=== PATIENT | female | born 1930 | race Caucasian/White ===

== ENCOUNTER 2017-05-04 09:00 | Inpatient (IN) | payer MEDICARE, BC ==
--- NOTE | 2017-04-21 21:07 | HP ---
HISTORY AND PHYSICAL: DATE OF SURGERY/ADMISSION: 05/04/17 DATE OF OFFICE VISIT: 04/21/17 SURGEON: Saadia Cee MD * (DICTATED BY LING VARMA) PROCEDURE: Right total knee arthroplasty. CHIEF COMPLAINT: Right knee pain. HISTORY OF PRESENT ILLNESS: Ms. Plascencia is an 86-year-old female with continued complaints of right knee pain. She has failed conservative management and has elected to proceed with a right total knee arthroplasty, which is scheduled for 05/04/[address] Cee. PAST MEDICAL HISTORY: Essential tremor, hyperlipidemia, hypertension, mitral valve disorder. PAST SURGICAL HISTORY: Bunionectomy, hammertoe repair x3, carpal tunnel release on the right, cataract removal, right femoral hernia repair, right shoulder arthroscopy, right shoulder replacement. CURRENT MEDICATIONS: 1. Atorvastatin calcium 20 mg daily. 2. Tylenol as needed. 3. Zolpidem 5 mg as needed. 4. Fluoxetine 40 mg daily. 5. Lisinopril 10 mg daily. 6. Primidone 50 mg at bedtime. ALLERGIES: SULFA drugs. FAMILY HISTORY: Colon cancer and coronary artery disease. SOCIAL HISTORY: She is an 86-year-old female. She lives with her . She does not smoke or use drugs. Uses occasional alcohol. REVIEW OF SYSTEMS: A complete 14-point review of systems was reviewed with the patient, it was all negative or noncontributory. PHYSICAL EXAMINATION GENERAL: She is well developed, well nourished, in no acute distress. VITAL SIGNS: She stands 5 feet 1 inch tall, weighs 115 pounds. Her blood pressure is 120/78, her heart rate is 68. HEENT: Normocephalic, atraumatic. NECK: Supple. No palpable lymph nodes. PULMONARY: The lungs are clear to auscultation bilaterally. CARDIO: Regular rate and rhythm. Strong S1, S2. ABDOMEN: Soft, nontender, and nondistended. MUSCULOSKELETAL: Right lower extremity, the skin is intact. There are no open wounds or abrasions. There is a mild joint effusion. Just some tenderness over the medial and lateral joint line. Range of motion is 10 to 120 degrees with patellofemoral crepitus and pain. No varus or valgus instability. There is a 15 degrees of valgus deformity on the right knee. She is distally neurovascularly intact. NEUROLOGICAL: She is alert and oriented x3. Cranial nerves II through XII are intact. ASSESSMENT AND PLAN: Ms. Plascencia is an 86-year-old female with severe end- stage osteoarthritis of the right knee. She has failed conservative management and elected to proceed with a right total knee arthroplasty, which is scheduled for 05/04/[address] Cee discussed the risks and benefits of the surgery at today's visit and all of her questions were answered. She will follow with Dr. Cee 2 weeks after the surgery. LING VARMA [id number]/[facility] #: [id number] MARCY
[~2017-05-04 09:00] MED LIST: Buffered Lidocaine 0.9% SYRIN* 5 ML/SYR SYRINGE INTRADERM ONE; Famotidine IV* 10 MG/ML 2 ML (20 mg) IV ONE
[2017-05-04] MEDS ORDERED: Buffered Lidocaine 0.9% SYRIN* 5 ML/SYR SYRINGE ONE (12:51)
[2017-05-04] MEDS ORDERED: ceFAZolin 2 GM in 100 MLS NS (*) BAG IVPB ONE (12:51)
[2017-05-04] MEDS ORDERED: Famotidine IV* 10 MG/ML 2 ML (20 mg) ONE (12:52)
[2017-05-04] MEDS ORDERED: fentaNYL* 50 MCG/ML 2 ML VIAL (100 MCG VIAL) ONE (13:06)
[2017-05-04] MEDS ORDERED: Midazolam* 1 MG/ML 5 ML VIAL (5 MG) ONE (13:07)
[2017-05-04] MEDS ORDERED: Propofol* 10 MG/ML 20 ML BTL IV PUSH ONE (13:07)
[2017-05-04] MEDS ORDERED: Gabapentin CAP(*) 300 MG PO ONE (13:10)
[2017-05-04] MEDS ORDERED: Dexamethasone IV* 4 MG/ML 1 ML (4 MG) ONE (13:12)
[2017-05-04] MEDS ORDERED: Ketorolac INJ* 30 MG/ML 1 ML VIAL ONE (13:12)
[2017-05-04] MEDS ORDERED: Lidocaine 2% PF * 5 ML VIAL ONE (13:12)
[2017-05-04] MEDS ORDERED: Ondansetron INJ* 2 MG/ML VIAL ONE (13:12)
[2017-05-04] MEDS ORDERED: Bupivacaine-MPF SPINAL* 7.5 MG/2 ML AMP ONE (13:22)
[2017-05-04] MEDS ORDERED: Ropivacaine (OR use only) 2 MG/ML 1 ML ONE (14:47)
[2017-05-04] MEDS ORDERED: Cyclobenzaprine TAB* 10 MG PO PRN (15:08)
[2017-05-04] MEDS ORDERED: Ondansetron INJ* 2 MG/ML VIAL IV PRN (15:08)
[2017-05-04] MEDS ORDERED: Acetaminophen TAB* 325 MG PO PRN ×2 (15:08→15:28)
[2017-05-04] MEDS ORDERED: oxyCODONE/Acetamin 5/325 MG* TAB PO PRN (15:08)
[2017-05-04] MEDS ORDERED: Polyethylene Glycol 3350* 17 GM PACKET PO PRN (15:08)
[2017-05-04] MEDS ORDERED: Magnesium Hydroxide LIQ* 30 ML UDC PO PRN (15:08)
[2017-05-04] MEDS ORDERED: Ondansetron TAB* 4 MG PO PRN (15:08)
[2017-05-04] MEDS ORDERED: Morphine INJ* 2 MG/ML 1 ML CARPUJECT IV PRN (15:08)
[2017-05-04] MEDS ORDERED: Bisacodyl SUPP* 10 MG SUPP PR PRN (15:08)
[2017-05-04] MEDS ORDERED: diPHENhydraMINE IV* 50 MG/ML 1 ml VIAL (BENADRYL) IV PRN (15:08)
[2017-05-04] MEDS ORDERED: Zolpidem TAB* 5 MG PO PRN (15:12)
[2017-05-04] MEDS ORDERED: Naloxone* 0.4 MG/ML 1 ML VIAL IV PRN (15:28)
[2017-05-04] MEDS ORDERED: DiMENhydriNATE IV* 50 MG/ML VIAL IV PUSH PRN (15:28)
[2017-05-04] MEDS ORDERED: HYDROmorphone INJ* 1 MG/ML CARPUJECT SYRINGE IV PRN (15:28)
[2017-05-04] MEDS ORDERED: Gabapentin CAP(*) 100 MG PO ONE (15:32)
[2017-05-04] MEDS ORDERED: EPHEDrine (Pressors)* 50 MG/ML VIAL IV PUSH PRN (15:36)
[2017-05-04] MEDS ORDERED: Ropivacaine* 300 MG in NS 0.9% 250 ML* 240 ML EPIDURAL SCH (16:00)
--- NOTE | 2017-05-04 18:27 | RAD ---
INDICATION: Status post total right knee replacement surgery. COMPARISON: Comparison is made with a prior study from March 01, 2017. TECHNIQUE: 2 views of the right knee were obtained. FINDINGS: The patient is status post total right knee replacement surgery. The bones and prostheses are in normal alignment. There is a surgical drain present anterior to the distal femur. IMPRESSION: STATUS POST TOTAL RIGHT KNEE REPLACEMENT SURGERY.
[2017-05-04] MEDS ORDERED: Gabapentin CAP(*) 100 MG ONE (18:56)
[2017-05-04] MEDS ORDERED: Warfarin TAB(*) 6 MG PO ONE (22:00)
[2017-05-04] MEDS: Docusate CAP* 100 MG PO SCH (22:02)
[2017-05-04] MEDS: Primidone TAB(*) 50 MG PO SCH (22:03)
[2017-05-04] MEDS: Atorvastatin* 20 MG TAB PO SCH (22:03)
[2017-05-04] MEDS: Magnesium Hydroxide LIQ* 30 ML UDC PO SCH (22:03)
[2017-05-04] MEDS: Ibuprofen TAB* 400 MG PO SCH (22:03)
[2017-05-04] MEDS: ceFAZolin 1 GM in Dextrose (*) 1 GM/50 ML BAG IVPB SCH (22:04)
--- NOTE | 2017-05-04 23:36 | CONS ---
CC: Dr. Desai; Dr. Cee* CONSULTATION REPORT: DATE OF CONSULTATION: 05/04/17 PRIMARY CARE PROVIDER: Dr. Desai. ATTENDING PHYSICIAN WHILE IN THE HOSPITAL: Malcolm Geiger MD (report being dictated by Alcon Mann NP) REQUESTING PHYSICIAN IN CONSULT: Dr. Cee. REASON FOR MEDICAL CONSULTATION: Evaluation and medical management of comorbid medical conditions. HISTORY OF PRESENT ILLNESS: Ms. Plascencia is an 86-year-old female patient. She carries a history of hypertension, hyperlipidemia, essential tremors, depression , IBS, mitral valve regurgitation, arthritis, and PMR. She comes into the orthopedic services today for an elective total knee. She was evaluated in the PACU. The patient says that she is feeling well with the exception she has no feeling to her leg, which is concerning to her. She denies having any chest pain, shortness of breath. No abdominal pain. She denies having any nausea or vomiting. She does have an epidural catheter. In addition to this, she did receive a spinal. She denied having any lightheadedness and says that she does not feel like she is going to pass out. She says she does not feel dizzy. Because of her medical complexity, we were asked to evaluate in consult. PAST MEDICAL HISTORY: Significant for: 1. Hypertension. 2. Hyperlipidemia. 3. Essential tremors. 4. Depression. 5. IBS. 6. Mitral valve regurgitation. 7. Arthritis. 8. PMR. PAST SURGICAL HISTORY: 1. She just today had a right total knee replacement. 2. Bunionectomy. 3. Hammertoe repair x3. 4. Carpal tunnel. 5. Cataract extraction. 6. Hernia repair. 7. Right shoulder arthroscopy. 8. Right total shoulder replacement. HOME MEDICATIONS: Include: 1. Ambien 5 mg at bedtime as needed. 2. 2 mg in the morning and 3 mg at bedtime. 3. Lisinopril 100 mg p.o. daily. 4. Prozac 40 mg p.o. daily. 5. Lipitor 20 mg daily. 6. Aleve 1 tablet p.o. b.i.d. as needed. 7. Tylenol 500 mg every 8 hours as needed. ALLERGIES TO MEDICATIONS: Include SULFA DRUGS. FAMILY HISTORY: Her mother had a history of cancer. Father's history is essentially reviewed, noncontributory. SOCIAL HISTORY: The patient does not smoke. She does occasionally drinks wine with dinner. Surrogate decision maker is her daughter, Elena. REVIEW OF SYSTEMS: There is no documented fever. She denies having any significant weight change. There is no double vision. She denies having any ear discharge. There is no rhinorrhea. She denies having any sore throat. She denies having any chest pain. There is no orthopnea. There is no nocturnal dyspnea. She denies having any abdominal pain. There is no nausea. There is no vomiting. There is no dysuria, no frequency. No seizure. No loss of conscience. No pruritus and no skin ulcerations. Review of 14 systems was completed, all others negative. PHYSICAL EXAM: Blood pressure of 168/93, this is preoperative blood pressure, postop was 108/70, pulse was 70, respirations 18; O2 sat 97%, temperature 98.1, she was on 2 L. General: At this time, Mrs. Plascencia is an 86-year-old female patient. She appears to be well-nourished, well-developed. She is sitting in the PACU bed. She does not appear to be in any acute distress. HEENT: Head: Atraumatic, normocephalic. Eyes: Sclerae are anicteric, not pale. Pupils reactive to light. Neck: Supple. Throat: Oral mucosa appears to be dry. No oropharyngeal erythema. Heart: Sounds S1, S2. Regular rate and rhythm. No murmurs, rubs, or gallops. Lungs: Clear to auscultation bilaterally. No wheezes, rales, or rhonchi. Abdomen: Soft, flat, nontender. Bowel sounds were present, but hypoactive. Extremities: Pulses were 2+ throughout. She had good cap refill. She has no movement to the lower extremities at this point due to spinal anesthesia, but CSM checks are intact with the exception of motion. Neurologically, she is awake, alert, oriented x3. Speech is clear. Tongue midline. Nutrition Services Worker were equal. She had no gross focal deficits. Skin: Intact with exception to the right knee, she has an incision, which is covered with an Raphael dressing and a Hemovac, which is clean, dry, and intact. DIAGNOSTIC STUDIES/LAB DATA: Labs, which were obtained in the outpatient setting preoperatively showed a UA, which was unremarkable. Sodium is 145, potassium of 3.8, chloride of 103, bicarb 27, BUN 18, glucose was 88, creatinine of 0.6. TSH was normal. WBC of 5.4, RBC of 3.87, hemoglobin of 12.5 , hematocrit of 37, platelet count of 211. She did have an outpatient EKG as well showing a normal sinus rhythm, rate of 70. No ST elevations or T wave inversion. In addition to this, also had an outpatient chest x-ray, impression : No active disease. Old medical records reviewed. ASSESSMENT AND PLAN: Mrs. Plascencia is an 86-year-old female patient coming to orthopedic services today for an elective total knee replacement. We were asked to evaluate in consult. Our recommendations at this point are: 1. Status post right total knee replacement. I will defer the management to Dr. Cee and her team. 2. Hypertension. She does have an epidural in place. I am going to be holding her medications. Her blood pressure are lying on the low sides now 108 through 110 range systolics, so I will hold her lisinopril. Restart when able. 3. Hyperlipidemia. Continue statin therapy. 4. History of tremors. Continue her primidone. 5. Depression. Continue supportive care. 6. Irritable bowel syndrome. Again, continue with supportive care and bowel regimen. 7. History of mitral valve regurgitation. Follow with her PCP and industrial security analyst. 8. History of arthritis. Follow up with primary and continue current medical regimen. 9. DVT prophylaxis. Defer to the primary team. 10. Code status. Full code. 11. Fluids, electrolytes, and nutrition. She can have a regular diet. TIME SPENT: Time spent on consult was 60 minutes, greater than half that time was spent [id number] with the patient obtaining my history and physical, the other half time was spent going over the plan of care with the patient and implementing the plan of care. I did discuss the plan of care with my attending, Dr. Geiger; he is in agreement. ALCON MANN, ISIS [id number]/[facility] #: [id number] [facility] H[facility]PITALIván
[2017-05-05] MEDS: Ibuprofen TAB* 400 MG PO SCH (04:35)
[2017-05-05] MEDS: oxyCODONE/Acetamin 5/325 MG* TAB PO PRN (05:29)
[2017-05-05 05:38] LABS: EGFR Non-African American 112.1 (>60)
[2017-05-05 06:08] LABS: Hematocrit 29 % (35-47); Hemoglobin 9.6 g/dl (12.0-16.0); Mean Platelet Volume 9 um3 (7.4-10.4); Platelet Count 48 10^3/ul (150-450)
[2017-05-05] MEDS: ceFAZolin 1 GM in Dextrose (*) 1 GM/50 ML BAG IVPB SCH ×2 (06:13→14:29)
[2017-05-05] MEDS: Primidone TAB(*) 50 MG PO SCH ×2 (07:56→18:04)
[2017-05-05] MEDS: FLUoxetine CAP* 20 MG PO SCH (07:57)
[2017-05-05] MEDS: Docusate CAP* 100 MG PO SCH ×2 (07:57→20:11)
[2017-05-05] MEDS: Magnesium Hydroxide LIQ* 30 ML UDC PO SCH ×2 (07:58→20:11)
[2017-05-05] MEDS ORDERED: Lisinopril TAB* 10 MG PO SCH (09:00)
[2017-05-05] MEDS: oxyCODONE TAB* 5 MG TAB PO PRN ×3 (10:19→20:09)
[2017-05-05] MEDS ORDERED: Enoxaparin(*) 30 MG/0.3 ML SYR SUBCUT SCH (12:00)
--- NOTE | 2017-05-05 15:30 | PN ---
Progress Note - Progress Note Date of Service: 05/05/17 SOAP: Subjective: []Patient seen at bedside. She is feeling well despite mild dizziness. Denies CP , SOB, nausea or vomiting. Objective: [] Vital Signs Temp 98.5 F 05/05/17 11:30 Pulse 72 05/05/17 15:22 Resp 18 05/05/17 15:22 BP 104/50 05/05/17 15:22 Pulse Ox 100 05/05/17 15:22 Intake & Output 05/04/17 05/05/17 05/05/17 18:59 06:59 18:59 Intake Total 1750 1812 400 Output Total 600 475 200 Balance 1150 1337 200 Weight 112 lb 6.4 oz Intake: IV Fluids 1750 1032 ABX - CEFAZOLIN 52 LR 1650 980 NS 100ML, Cefazolin 2G 100 Oral 780 400 Output: Urine 200 Archibald 600 475 Other: # Bowel Movements 0 Laboratory Last Values Hgb 9.6 g/dl (12.0-16.0) L 05/05/17 04:46 Hct 29 % (35-47) L 05/05/17 04:46 Plt Count 48 10^3/ul (150-450) L 05/05/17 04:46 MPV 9 um3 (7.4-10.4) 05/05/17 04:46 INR (Anticoag Therapy) 1.00 (0.77-1.02) 05/05/17 04:46 Sodium 133 mmol/L (133-145) 05/05/17 04:46 Potassium 4.4 mmol/L (3.5-5.0) 05/05/17 07:19 Chloride 102 mmol/L (101-111) 05/05/17 04:46 Carbon Dioxide 25 mmol/L (22-32) 05/05/17 04:46 Anion Gap 6 mmol/L (2-11) 05/05/17 04:46 BUN 15 mg/dL (6-24) 05/05/17 04:46 Creatinine 0.52 mg/dL (0.51-0.95) 05/05/17 04:46 Est GFR ( Amer) 144.1 (>60) 05/05/17 04:46 Est GFR (Non-Af Amer) 112.1 (>60) 05/05/17 04:46 BUN/Creatinine Ratio 28.8 (8-20) H 05/05/17 04:46 Glucose 100 mg/dL (70-100) 05/05/17 04:46 Calcium 8.5 mg/dL (8.6-10.3) L 05/05/17 04:46 General: Well appearing, NAD RLE: Drain pulled with tip intact without complication. Dressing CDI. DF/PF intact. 2+ DP/PT pulse. BL LE: calves supple and nontender without erythema, edema or palpable cords. Assessment: []POD 1 SP right total knee arthroplasty 05/04/17 Dr Cee Plan: []WBAT PT/OT PLT count of 48 discussed with patient, daughter and hospitalist service. Will repeat count now and hold anticoagulation as plt count dictates
[2017-05-05 16:14] LABS: ABS Basophils 0 10^3/ul (0-0.2); ABS Eosinophils 0.1 10^3/ul (0-0.6); ABS Lymphocytes 1.1 10^3/ul (1.0-4.8); ABS Monocytes 0.6 10^3/ul (0-0.8); ABS Nucleated RBC 0 10^3/ul; Eosinophil % 0.6 % (0-6); Hematocrit 27 % (35-47); Hemoglobin 9.2 g/dl (12.0-16.0); Lymphocyte % 9.9 % (25-47); Mean Corpuscular HGB Conc 34 g/dl (31-36); Mean Corpuscular Hemoglobin 33 pg (27-31); Mean Corpuscular Volume 95 fL (80-97); Mean Platelet Volume 9 um3 (7.4-10.4); Nucleated Red Blood Cells % 0; Platelet Count 142 10^3/ul (150-450); Red Cell Distribution Width 12 % (10.5-15); White Blood Count 10.8 10^3/ul (3.5-10.8)
--- NOTE | 2017-05-05 16:52 | PN ---
Subjective Date of Service: 05/05/17 Interval History: C/o right knee pain, denies chest pain or shortness of breath, Denies abd pain. v/d, c/o nausea on and off throughout the day. Family History: Unchanged from Admission Social History: Unchanged from Admission Past Medical History: Unchanged from Admission Objective Active Medications: Acetaminophen (Tylenol Tab*) 650 mg PO Q4H PRN PRN Reason: PAIN OR TEMPERATURE Atorvastatin Calcium (Lipitor*) 20 mg PO QPM [facility] Last Admin: 05/04/17 22:03 Dose: 20 mg Bisacodyl (Dulcolax Supp*) 10 mg [place] DAILY PRN PRN Reason: constipation Cyclobenzaprine HCl (Flexeril Tab*) 10 mg PO TID PRN PRN Reason: SPASMS Last Admin: 05/05/17 07:57 Dose: 10 mg Diphenhydramine HCl (Benadryl Iv*) 12.5 mg IV Q6H PRN PRN Reason: PRURITIS Docusate Sodium (Colace Cap*) 100 mg PO BID [facility] Last Admin: 05/05/17 07:57 Dose: 100 mg Enoxaparin Sodium (Lovenox(*)) 30 mg SUBCUT Q24H [facility] Last Admin: 05/05/17 12:39 Dose: 30 mg Fluoxetine HCl (Prozac Cap*) 40 mg PO QAM [facility] Last Admin: 05/05/17 07:57 Dose: 40 mg Lactated Ringer's (Lactated Ringers 1000 Ml Bag*) 1,000 mls @ 100 mls/hr IV PER RATE [facility] Last Admin: 05/05/17 05:40 Dose: 100 mls/hr Lactulose (Lactulose*) 30 ml PO Q6H PRN PRN Reason: constipation Magnesium Hydroxide (Milk Of Magnesia Liq*) 30 ml PO BID [facility] Last Admin: 05/05/17 07:58 Dose: Not Given Magnesium Hydroxide (Milk Of Magnesia Liq*) 30 ml PO Q6H PRN PRN Reason: constipation Morphine Sulfate (Morphine Inj (Syringe)*) 2 mg IV Q2H PRN PRN Reason: PAIN Ondansetron HCl (Zofran Inj*) 4 mg IV Q6H PRN PRN Reason: nausea Last Admin: 05/05/17 10:16 Dose: 4 mg Ondansetron HCl (Zofran Tab*) 4 mg PO Q6H PRN PRN Reason: NAUSEA Oxycodone HCl (Roxycodone Tab*) 10 mg PO Q4H PRN PRN Reason: SEVERE PAIN Last Admin: 05/05/17 14:28 Dose: 10 mg Oxycodone/Acetaminophen (Percocet 5/325 Tab*) 2 tab PO Q4H PRN PRN Reason: PAIN Oxycodone/Acetaminophen (Percocet 5/325 Tab*) 1 tab PO Q4H PRN PRN Reason: PAIN Last Admin: 05/05/17 05:29 Dose: 1 tab Pharmacy Profile Note (Coumadin Daily Reminder*) 1 note FOLLOW UP 1700 [facility] Polyethylene Glycol/Electrolytes (Miralax*) 17 gm PO DAILY PRN PRN Reason: Constipation Primidone (Mysoline Tab(*)) 100 mg PO QAM [facility] Last Admin: 05/05/17 07:56 Dose: 100 mg Primidone (Mysoline Tab(*)) 150 mg PO QPM [facility] Last Admin: 05/04/17 22:03 Dose: 150 mg Warfarin Sodium (Coumadin Tab(*)) 6 mg PO ONCE@1700 ONE PRN Reason: Protocol Stop: 05/05/17 17:01 Zolpidem Tartrate (Ambien Tab*) 5 mg PO BEDTIME PRN PRN Reason: INSOMNIA Vital Signs - 8 hr 05/05/17 05/05/17 05/05/17 10:19 10:22 11:30 Temperature 98.5 F Pulse Rate 70 Respiratory 16 16 16 Rate Blood Pressure 108/53 (mmHg) O2 Sat by Pulse 96 Oximetry 05/05/17 05/05/17 05/05/17 12:42 14:28 15:22 Temperature Pulse Rate 72 Respiratory 16 16 18 Rate Blood Pressure 104/50 (mmHg) O2 Sat by Pulse 100 Oximetry Oxygen Devices in Use Now: None Appearance: appears comfortable lying in the bed Eyes: No Scleral Icterus Ears/Nose/Mouth/Throat: Clear Oropharnyx, Mucous Membranes Moist Neck: NL Appearance and Movements; NL JVP, Trachea Midline Respiratory: Symmetrical Chest Expansion and Respiratory Effort, Clear to Auscultation Cardiovascular: NL Sounds; No Murmurs; No JVD, No Edema Abdominal: NL Sounds; No Tenderness; No Distention Extremities: No Clubbing, Cyanosis, - - mild edema to right lower leg, dressing intact to right knee Skin: No Rash or Ulcers Neurological: Alert and Oriented x 3 Nutrition: Taking PO's Result Diagrams: 05/05/17 15:52 05/05/17 07:19 Assess/Plan/Problems-Billing Assessment: Ms. Plascencia 86 y.o who had a elective right knee athroplasty. Hx of HTN, hyperlipidemia, essential tremors,depression, IBS , arthritis and mitral valve regurgitation - Patient Problems (1) HTN (hypertension) Current Visit: Yes Status: Acute Code(s): I10 - ESSENTIAL (PRIMARY) HYPERTENSION SNOMED Code(s): 92103429 Comment: will hold lisinopril for now SBP~ 104 (2) S/P total knee arthroplasty Current Visit: Yes Status: Acute Code(s): Z96.659 - PRESENCE OF UNSPECIFIED ARTIFICIAL KNEE JOINT SNOMED Code(s): 9227912631982 Comment: management per orthopedics Pt/OT per ortho pain management per ortho (3) Hyperlipidemia Current Visit: Yes Status: Acute Code(s): E78.5 - HYPERLIPIDEMIA, UNSPECIFIED SNOMED Code(s): 56944103 Comment: continue lipitor (4) Essential tremor Current Visit: Yes Status: Acute Code(s): G25.0 - ESSENTIAL TREMOR SNOMED Code(s): 758244156 Comment: stable ~ continue home medication primidone (5) Depression Current Visit: Yes Status: Acute Code(s): F32.9 - MAJOR DEPRESSIVE DISORDER , SINGLE EPISODE, UNSPECIFIED SNOMED Code(s): 68657987 Comment: suportive care (6) Arthritis Current Visit: Yes Status: Acute Code(s): M19.90 - UNSPECIFIED OSTEOARTHRITIS, UNSPECIFIED SITE SNOMED Code(s): 0161379 (7) Mitral valve regurgitation Current Visit: Yes Status: Acute (8) DVT prophylaxis Current Visit: Yes Status: Acute Code(s): STN0482 - SNOMED Code(s): 848845687 Comment: Coumadin as per orthopedics (9) Full code status Current Visit: Yes Status: Acute Code(s): Z78.9 - OTHER SPECIFIED HEALTH STATUS SNOMED Code(s): 749070795
[2017-05-05] MEDS ORDERED: Warfarin TAB(*) 6 MG PO SCH (17:00)
[2017-05-05] MEDS ORDERED: Warfarin TAB(*) 6 MG PO ONE (17:00)
[2017-05-05] MEDS: Atorvastatin* 20 MG TAB PO SCH (18:04)
[2017-05-06 05:46] LABS: Hematocrit 23 % (35-47); Mean Platelet Volume 9 um3 (7.4-10.4); Platelet Count 116 10^3/ul (150-450)
[2017-05-06 06:02] LABS: INR 1.88 (0.77-1.02)
[2017-05-06] MEDS: Magnesium Hydroxide LIQ* 30 ML UDC PO SCH (08:12)
[2017-05-06] MEDS: Docusate CAP* 100 MG PO SCH (08:23)
[2017-05-06] MEDS: oxyCODONE/Acetamin 5/325 MG* TAB PO PRN ×2 (08:23→12:43)
[2017-05-06] MEDS: Primidone TAB(*) 50 MG PO SCH (08:23)
[2017-05-06] MEDS: FLUoxetine CAP* 20 MG PO SCH (08:23)
--- NOTE | 2017-05-06 08:39 | OP ---
DATE OF OPERATION: 05/04/17 - ROOM #341 DATE OF : 32 SURGEON: Saadia Cee MD STRAW BOSS: LING Enciso. Mr. Contreras did help throughout the procedure with preparation of the leg, wound retraction, manipulation of the knee, and wound closure. ANESTHESIOLOGIST: Danii Mcgowan MD ANESTHESIA: Spinal. PRE-OP DIAGNOSIS: Severe end-stage degenerative osteoarthritis of the right knee joint, valgus deformity. POST-OP DIAGNOSIS: Severe end-stage degenerative osteoarthritis of the right knee joint, valgus deformity. OPERATIVE PROCEDURE: Right total knee arthroplasty. INDICATIONS: Ms. Plascencia is an 86-year-old female with years of increasingly severe right knee pain and valgus deformity. She failed conservative treatment with intraarticular injections, physical therapy, and ambulatory assistive devices, as well as anti-inflammatories. Radiographs showed severe bone-on- bone arthritis. She developed greater than 12-degree valgus deformity. Due to continued pain and decreased quality of life, she elected to undergo right total knee arthroplasty. Informed consent was obtained from the patient. She understood the risks of surgery included, but were not limited to, bleeding, infection, damage to nearby structures, continued pain, need for further surgery , intraoperative fracture, nerve palsy, hardware failure or loosening, knee stiffness, loss of motion, stroke, heart attack, blood clot, and . She wished to proceed. COMPLICATIONS: None. ESTIMATED BLOOD LOSS: 300 cc. TOURNIQUET TIME: 54 minutes. HARDWARE USED: This is cemented Calixto and Nephew total knee arthroplasty hardware. For the femur a size 4, right posterior stabilized Legion narrow femoral component. For the tibia, size 3 right tibial base plate Gisele II. For the patella, a 32-mm 7.5 thickness, 3-peg all poly patella, and for the insert a 9-mm posterior stabilized articular insert, size 3-4. Two packages of Simplex bone cement. INTRAOPERATIVE FINDINGS: Intraoperatively, the patient was noted to have preop range of motion of 5 to 120 degrees, valgus deformity of 12 degrees, and this was corrected to anatomic valgus during the surgery. She was noted to have tricompartmental full-thickness loss of cartilage as well as lateral femoral condylar hypoplasia. DESCRIPTION OF PROCEDURE: Ms. Plascencia was identified in the preanesthesia unit. Her right lower extremity was marked as the correct operative side. Informed consent was signed and placed in the chart. The patient was taken to the operating room and placed under spinal anesthesia. A Archibald catheter was placed. Tourniquet was placed on the right thigh. Right lower extremity was prepped and draped in the usual sterile fashion. Preop time-out was made to correctly identify the patient's side and site. Appropriate perioperative antibiotics were given within 1 hour of incision. Tourniquet was inflated and the total tourniquet time for this procedure was 54 minutes. A 12-cm midline incision was made with a 10 blade and carried down sharply to the extensor mechanism. A new 10 blade was used to make a standard medial parapatellar arthrotomy. The patella was subluxed laterally. Electrocautery was used to subperiosteally elevate soft tissue off the superomedial tibia to the mid sagittal plane. The knee was flexed up. The anterior horn of the lateral meniscus and ACL were sharply released. A drill was used to enter the distal femur. Intramedullary distal femoral cutting guide was pinned on the distal femur. Lateral femoral condylar hypoplasia was noted and accounted for. Distal femoral cut was made. Next, the external rotation guide was placed on the distal femur. The distal femur was sized to size 4. A size 4 multi-cutting jig was pinned on the distal femur. Oscillating saw was used to make the appropriate 4 chamfer cuts. The PCL was completely released. The tibia was subluxed anteriorly. Extramedullary tibial cutting guide was pinned on the proximal tibia. The oscillating saw was used to make the proximal tibial cut perpendicular to the mechanical axis of the tibia. The bone was carefully removed. The knee was brought out into full extension. The spacer block had excellent fit. The medial and lateral ligaments were well balanced. Flexion and extension gaps were well balanced. The knee was flexed up. Tibial tray and drop karyn were placed to confirm satisfactory tibial cut. Next, lamina vp strategic planning was placed both medially and laterally. Any remaining meniscus was carefully removed with electrocautery. Curved osteotome was used to remove any posterior osteophytes. A size 4 narrow right femoral trial was impacted on to the distal femur. The box for the posterior stabilized implant was prepared using a reamer and box cut osteotome. A trial 3 tibial tray with a 9-mm insert trial was placed and the knee was taken through a range of motion. The knee was brought out into full extension and had 130 degrees of flexion with good patellofemoral tracking. The patella was everted. 7 mm of patellar bone and cartilage was carefully removed using an oscillating saw. The patella was sized to size 32. A 32 trial patella was placed after the peg holes were drilled through the size 32 guide. A 7.5 thickness trial patella was chosen. The knee was taken through range of motion and the patellofemoral tracking was satisfactory. All trials were carefully removed. The tibia was subluxed anteriorly. Tibia was sized to a size 3. The proximal tibia was prepared using a size 3 keel punch. All bony cut surfaces were copiously irrigated with sterile saline and dried. Final implants were cemented into place starting with the tibia followed by the femur and lastly the patella. A 9-mm insert trial was placed while the knee was brought out into full extension. The tourniquet was turned down at 54 minutes. Electrocautery was used to obtain meticulous hemostasis. The knee was copiously irrigated with sterile saline. Once the cement had fully cured, the insert trial was removed. Any excess cement was removed from around the capsule and hardware. Final insert chosen was a 9-mm posterior stabilized articular insert, size 3/4. This was locked into position on the tibial tray. Stability of the insert was checked and rechecked and noted to be stable. The extensor mechanism was closed using interrupted #1 Vicryls over a medium Hemovac drain. The rest of the incisions were closed in layered fashion using 0 and 2-0 Vicryls. The skin was closed using running 3-0 nylon suture. Sterile Xeroform, 4x4s, and Webril were used to cover the incision. Raphael wrap and cold pack were placed over this. The patient's anesthesia was reversed without difficulty. She was taken to the PACU in stable condition. Intended weightbearing will be weightbearing as tolerated. Intended DVT prophylaxis will be Coumadin with a Lovenox bridge. [id number]/[facility] #: [id number] MARCY
--- NOTE | 2017-05-06 10:18 | PN ---
Progress Note - Progress Note Date of Service: 05/06/17 SOAP: Subjective: []Patient seen at bedside. She feels well with well controlled right knee pain. Denies dizziness, nausea, CP, SOB, leg numbness. Objective: [] Vital Signs Temp 98.5 F 05/06/17 08:08 Pulse 84 05/06/17 08:08 Resp 16 05/06/17 09:15 BP 128/61 05/06/17 08:08 Pulse Ox 95 05/06/17 08:30 Intake & Output 05/05/17 05/06/17 05/06/17 18:59 06:59 18:59 Intake Total 2025 1650 280 Output Total 200 1950 Balance 1826 -300 280 Intake: IV Fluids 1116 980 ABX - CEFAZOLIN 108 LR 1008 980 Oral 910 670 280 Output: Urine 200 1950 Other: Estimated Void Large Small # Voids 1 Laboratory Last Values WBC 10.8 10^3/ul (3.5-10.8) 05/05/17 15:52 RBC 2.80 10^6/ul (4.0-5.4) L 05/05/17 15:52 Hgb 8.0 g/dl (12.0-16.0) L 05/06/17 05:12 Hct 23 % (35-47) L 05/06/17 05:12 MCV 95 fL (80-97) 05/05/17 15:52 MCH 33 pg (27-31) H 05/05/17 15:52 MCHC 34 g/dl (31-36) 05/05/17 15:52 RDW 12 % (10.5-15) 05/05/17 15:52 Plt Count 116 10^3/ul (150-450) L 05/06/17 05:12 MPV 9 um3 (7.4-10.4) 05/06/17 05:12 Neut % (Auto) 83.2 % (38-83) H 05/05/17 15:52 Lymph % (Auto) 9.9 % (25-47) L 05/05/17 15:52 [place] % (Auto) 5.9 % (0-7) 05/05/17 15:52 Eos % (Auto) 0.6 % (0-6) 05/05/17 15:52 Baso % (Auto) 0.4 % (0-2) 05/05/17 15:52 Absolute Neuts (auto) 9.0 10^3/ul (1.5-7.7) H 05/05/17 15:52 Absolute Lymphs (auto) 1.1 10^3/ul (1.0-4.8) 05/05/17 15:52 Absolute Monos (auto) 0.6 10^3/ul (0-0.8) 05/05/17 15:52 Absolute Eos (auto) 0.1 10^3/ul (0-0.6) 05/05/17 15:52 Absolute Basos (auto) 0 10^3/ul (0-0.2) 05/05/17 15:52 Absolute Nucleated RBC 0 10^3/ul 05/05/17 15:52 Nucleated RBC % 0 05/05/17 15:52 INR (Anticoag Therapy) 1.88 (0.77-1.02) H 05/06/17 05:12 Sodium 133 mmol/L (133-145) 05/05/17 04:46 Potassium 4.4 mmol/L (3.5-5.0) 05/05/17 07:19 Chloride 102 mmol/L (101-111) 05/05/17 04:46 Carbon Dioxide 25 mmol/L (22-32) 05/05/17 04:46 Anion Gap 6 mmol/L (2-11) 05/05/17 04:46 BUN 15 mg/dL (6-24) 05/05/17 04:46 Creatinine 0.52 mg/dL (0.51-0.95) 05/05/17 04:46 Est GFR ( Amer) 144.1 (>60) 05/05/17 04:46 Est GFR (Non-Af Amer) 112.1 (>60) 05/05/17 04:46 BUN/Creatinine Ratio 28.8 (8-20) H 05/05/17 04:46 Glucose 100 mg/dL (70-100) 05/05/17 04:46 Calcium 8.5 mg/dL (8.6-10.3) L 05/05/17 04:46 General: Well appearing, NAD RLE:Dressing changed. Incision CDI. DF/PF intact. 2+ DP/PT pulse. Sensation intact distally. BL LE: calves supple and nontender without erythema, edema or palpable cords. Assessment: []POD 2 SP right total knee arthroplasty 05/04/17 Dr Cee Plan: []WBAT PT/OT Lovenox, coumadin 2 mg DC home today. Daughters ( both work in healthcare) will at be home to assist in care-taking
--- NOTE | 2017-05-06 15:41 | PN ---
Subjective Date of Service: 05/06/17 Interval History: Patient seen and examined at bedside. Denies fever, chills, lightheadedness or dizziness, shortness of breath, chest discomfort, N/V/D. Family History: Unchanged from Admission Social History: Unchanged from Admission Past Medical History: Unchanged from Admission Objective Active Medications: Acetaminophen (Tylenol Tab*) 650 mg PO Q4H PRN Reason: PAIN OR TEMPERATURE Atorvastatin Calcium (Lipitor*) 20 mg PO QPM DAVID Bisacodyl (Dulcolax Supp*) 10 mg ME DAILY PRN Reason: constipation Cyclobenzaprine HCl (Flexeril Tab*) 10 mg PO TID PRN Reason: SPASMS Diphenhydramine HCl (Benadryl Iv*) 12.5 mg IV Q6H PRN Reason: PRURITIS Docusate Sodium (Colace Cap*) 100 mg PO BID DAVID Fluoxetine HCl (Prozac Cap*) 40 mg PO QAM [facility] Lactated Ringer's (Lactated Ringers 1000 Ml Bag*) 1,000 mls @ 100 mls/hr IV PER RATE DAVID Lactulose (Lactulose*) 30 ml PO Q6H PRN Reason: constipation Magnesium Hydroxide (Milk Of Magnesia Liq*) 30 ml PO BID DAVID Magnesium Hydroxide (Milk Of Magnesia Liq*) 30 ml PO Q6H PRN Reason: constipation Morphine Sulfate (Morphine Inj (Syringe)*) 2 mg IV Q2H PRN Reason: PAIN Ondansetron HCl (Zofran Inj*) 4 mg IV Q6H PRN Reason: nausea Ondansetron HCl (Zofran Tab*) 4 mg PO Q6H PRN Reason: NAUSEA Oxycodone HCl (Roxycodone Tab*) 10 mg PO Q4H PRN Reason: SEVERE PAIN Oxycodone/Acetaminophen (Percocet 5/325 Tab*) 2 tab PO Q4H PRN Reason: PAIN Oxycodone/Acetaminophen (Percocet 5/325 Tab*) 1 tab PO Q4H PRN Reason: PAIN Pharmacy Profile Note (Coumadin Daily Reminder*) 1 note FOLLOW UP 1700 DAVID Polyethylene Glycol/Electrolytes (Miralax*) 17 gm PO DAILY PRN Reason: Constipation Primidone (Mysoline Tab(*)) 100 mg PO QAM DAVID Primidone (Mysoline Tab(*)) 150 mg PO QPM [facility] Warfarin Sodium (Coumadin Tab(*)) 2 mg PO ONCE@1700 ONE Stop: 05/06/17 17:01 Zolpidem Tartrate (Ambien Tab*) 5 mg PO BEDTIME PRN Reason: INSOMNIA Vital Signs - 8 hr 05/06/17 05/06/17 05/06/17 08:08 08:23 08:30 Temperature 98.5 F Pulse Rate 84 Respiratory 16 16 Rate Blood Pressure 128/61 (mmHg) O2 Sat by Pulse 95 95 Oximetry 05/06/17 05/06/17 05/06/17 09:15 12:43 12:44 Temperature Pulse Rate Respiratory 16 16 16 Rate Blood Pressure (mmHg) O2 Sat by Pulse Oximetry Oxygen Devices in Use Now: None Appearance: NAD, sitting up in a chair Ears/Nose/Mouth/Throat: Mucous Membranes Moist Respiratory: Symmetrical Chest Expansion and Respiratory Effort, Clear to Auscultation Cardiovascular: NL Sounds; No Murmurs; No JVD, RRR Abdominal: NL Sounds; No Tenderness; No Distention Neurological: Alert and Oriented x 3, NL Muscle Strength and Tone Lines/Tubes/Other Access: Clean, Dry and Intact Peripheral IV - site benign Nutrition: Taking PO's Result Diagrams: 05/06/17 05:12 05/05/17 07:19 Assess/Plan/Problems-Billing Assessment: Ms. Plascencia is an 86 y.o with PMH significant for HTN, hyperlipidemia, essential tremors,depression, IBS , arthritis and mitral valve regurgitation who had an elective right knee arthroplasty. - Patient Problems (1) S/P total knee arthroplasty Code(s): Z96.659 - PRESENCE OF UNSPECIFIED ARTIFICIAL KNEE JOINT SNOMED Code(s ): 8723692953576 Comment: - Right knee, POD # 2. Management per orthopedics - Continue PT/OT per ortho, pain management and bowel regimen per ortho (2) Anemia Code(s): D64.9 - ANEMIA, UNSPECIFIED SNOMED Code(s): 326523059 Comment: - Suspect acute blood loss anemia secondary to surgery - Asymptomatic (3) Depression Code(s): F32.9 - MAJOR DEPRESSIVE DISORDER, SINGLE EPISODE, UNSPECIFIED SNOMED Code(s): 95924521 Comment: - Continue suportive care (4) Essential tremor Code(s): G25.0 - ESSENTIAL TREMOR SNOMED Code(s): 467501594 Comment: - Continue primidone (5) HTN (hypertension) Code(s): I10 - ESSENTIAL (PRIMARY) HYPERTENSION SNOMED Code(s): 66176088 Comment: - SBP 110-140's - Resume lisinopril (6) Hyperlipidemia Code(s): E78.5 - HYPERLIPIDEMIA, UNSPECIFIED SNOMED Code(s): 95805379 Comment: - Continue lipitor (7) IBS (irritable bowel syndrome) (8) Mitral valve regurgitation (9) DVT prophylaxis Code(s): GBP0356 - SNOMED Code(s): 199499004 Comment: - Coumadin as per orthopedics (10) Full code status Code(s): Z78.9 - OTHER SPECIFIED HEALTH STATUS SNOMED Code(s): 589565290 Status and Disposition: Inpatient. Stable for discharge to home today.
[2017-05-06 16:20] VITALS: BP 149/75
[2017-05-06] MEDS ORDERED: Warfarin TAB(*) 2 MG PO ONE (17:00)
--- NOTE | 2017-05-07 22:48 | DS ---
DISCHARGE SUMMARY: DATE OF ADMISSION/OPERATION: 05/04/17 DATE OF DISCHARGE: ATTENDING PHYSICIAN: Dr. Saadia Cee. SURGEON: Dr. 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 HISTORY OF PRESENT ILLNESS: Ms. Plascencia is an 86-year-old female with years of increasingly severe right knee pain and valgus deformity. She failed conservative treatment and therefore elected to undergo a total right knee arthroplasty. HOSPITAL COURSE: Ms. Plascencia underwent a total right knee arthroplasty on the same day that she was admitted to [facility]. After the procedure, she was brought to the PACU for recovery briefly in stable condition and then to the short-stay surgical unit again in stable condition. During her stay, she was seen by the hospitalist service, physical therapy and occupational therapy. On postop day 1, the patient felt well with mild dizziness. Hemoglobin 9.6, hematocrit 29. INR 1.0. Platelet count originally reported is 48 deemed to be a lab error, asked to repeat, with a count of 142, also discussed with a lab. It reveals the clot was likely clotted in the first sample. Postop day 2, dizziness had subsided. Temperature 98.5, pulse 84, respiratory rate 16, blood pressure 128/61, pulse ox 95%, hemoglobin 8.0, hematocrit 23, platelet 116. INR 1.88. The patient's dressing was changed and the incision was clean, dry, and intact. Dorsiflexion and plantarflexion intact. 2+ dorsalis pedis and posterior tibial pulse. Sensation is intact distally. Calves are supple and nontender without erythema, edema or palpable cords. The patient is weightbearing as tolerated. She will be discharged to home today. DISCHARGE MEDICATIONS: Resume home medications aside from Aleve. New medications: 1. Docusate 100 mg p.o. b.i.d. 2. Oxycodone/acetaminophen 5/325 one to two tabs every 4 to 6 hours as needed, max daily dose of 10. 3. Warfarin 2 mg tab 1 to 2 tabs daily depending on INR dosing. DISCHARGE PLAN: The patient will be weightbearing as tolerated. Okay to shower on postop day 2. Do not submerge the wound. Call Orthopedic office for increased drainage, redness, increased pain or fever. Go to the emergency room with shortness of breath or chest pain. Continue with physical therapy and occupational therapy, exercises as shown. Visiting home nurse will draw blood for INRs on Mondays and at your first INR draw. Nurse will also draw a CBC order and then sent to the home nursing service. Coumadin dosing will be 2 mg daily until recheck on 05/10/17. Pain control with Percocet 5/325 one to two tabs by mouth every 4 to 6 hours as needed for pain, max of 10 tabs per day. Follow up with Dr. Cee within 10 to 14 days. LING DIEHL [id number]/CPS #: [id number] MTDD
== END 2017-05-06 16:05 | disposition home health service (06) | DRG 470 ==
LOC: AA 12:38 → SSU 19:20
PROVIDERS: ADMIT Orthopaedic Surgery Adult Reconstructive Orthopaedic Surgery; ATTEND Orthopaedic Surgery Adult Reconstructive Orthopaedic Surgery
PROC: 0SRC0J9 Replacement of Right Knee Joint with Synthetic Substitute, Cemented, Open Approach (ICD-10-PCS; principal; 2017-05-04 15:00)
DX: M17.11 Unilateral primary osteoarthritis, right knee (principal); I27.20 Pulmonary hypertension, unspecified; I08.3 Combined rheumatic disorders of mitral, aortic and tricuspid valves; D64.9 Anemia, unspecified; E78.5 Hyperlipidemia, unspecified; G25.0 Essential tremor; I10 Essential (primary) hypertension; Z96.611 Presence of right artificial shoulder joint; F32.9 Major depressive disorder, single episode, unspecified; K58.9 Irritable bowel syndrome, unspecified; M21.061 Valgus deformity, not elsewhere classified, right knee; M35.3 Polymyalgia rheumatica; M25.761 Osteophyte, right knee; R42 Dizziness and giddiness; Z98.42 Cataract extraction status, left eye; Z98.41 Cataract extraction status, right eye; Z72.89 Other problems related to lifestyle; Z82.49 Family history of ischemic heart disease and other diseases of the circulatory system; Z80.0 Family history of malignant neoplasm of digestive organs; Z88.2 Allergy status to sulfonamides; Z79.01 Long term (current) use of anticoagulants
CPT/HCPCS: 36415; 80048; 85014; 85018; 85025; 85049; 85610; 94760; A9270-GY; C1776; G8978-GP-CI; G8978-GP-CJ; G8979-GP-CI; G8987-GO-CK; G8988-GO-CI; J0690; J1100; J1650; J1885; J2250; J2405; J2704; J2795; J3010

== ENCOUNTER 2017-07-05 14:14 | Emergency (ER) | payer MEDICARE, BC ==
[2017-07-05 14:24] VITALS: BP 134/71
--- NOTE | 2017-07-05 15:08 | RAD ---
INDICATION: Cough x10 days COMPARISON: Chest x-ray April 13, 2017 TECHNIQUE: PA and lateral views of the chest were obtained. FINDINGS: The heart and mediastinum are normal in size and contour. Again seen is coarse calcification overlying the expected location of the mitral valve. The lungs are grossly clear. There is no evidence of large pleural effusion. Visualized bones are normal for the patient's age. There is no radiographic evidence of free air beneath the diaphragm IMPRESSION: No radiographic evidence of acute cardiopulmonary disease.
--- NOTE | 2017-07-05 16:42 | UC ---
Reggie Burks Natalie, scribed for Dorian Gamino MD on 07/05/17 at 1519 . Ear Complaint HPI - HPI Summary HPI Summary: The patient is an 86 y/o F presenting to [facility] c/o nasal and sinus congestion and ear plugging for the last few days. She additionally c/o productive cough for the last two days. Patient denies fevers and chills. - History of Current Complaint Chief Complaint: UCEar Stated Complaint: EAR COMPLAINT Time Seen by Provider: 07/05/17 14:35 Hx Obtained From: Patient Onset/Duration: Gradual Onset, Lasting Days Severity Initially: Mild Severity Currently: Mild Pain Intensity: 0 Pain Scale Used: 0-10 Numeric Aggravating Factors: Nothing Alleviating Factors: Nothing - Allergies/Home Medications Allergies/Adverse Reactions: Allergies Allergy/AdvReac Type Severity Reaction Status Date / Time Sulfa (Sulfonamide Allergy Hives Verified 07/05/17 14:24 Antibiotics) Home Medications: Home Medications Acetaminophen [Pain Relief] 500 mg PO 07/05/17 [History] Atorvastatin* [Lipitor 20 MG*] 20 mg PO 1700 07/05/17 [History Confirmed ] PMH/Surg Hx/FS Hx/Imm Hx Cardiovascular History: Hypertension Respiratory History: Other - NEGATIVE: asthma Other Respiratory History: negative for asthma - Surgical History Surgical History: Yes Surgery Procedure, Year, and Place: RIGHT RE[place]SE [place] [facility] [place] BUNIONECTOMY. 2009 BILAT CATARACT [facility] [place]. BILAT CTR 2006 [facility] [place] - Social History Alcohol Use: Daily Alcohol Amount: 1 GLASS WINE/DAY Substance Use Type: None Smoking Status (MU): Never Smoked Tobacco - Immunization History Most Recent Influenza Vaccination: 2012 Most Recent Tetanus Shot: UNKNOWN Most Recent Pneumonia Vaccination: WITH IN LAST 10 YEARS Review of Systems Constitutional: Other - NEGATIVE: fevers, chills ENT: Sinus Congestion, Other - nasal congestion, ear plugging Respiratory: Cough - productive All Other Systems Reviewed And Are Negative: Yes Physical Exam - Summary Physical Exam Summary: VITAL SIGNS: Reviewed. GENERAL: Patient is a well-developed and nourished female who is lying comfortable in the stretcher. Patient is not in any acute respiratory distress. HEAD AND FACE: Normocephalic. Nasal mucosas with erythema. EYES: PERRLA, EOMI x 2. EARS: Hearing grossly intact. MOUTH: Oropharynx within normal limits. NECK: Supple, trachea is midline, no adenopathy, no JVD, no carotid bruit. CHEST: Symmetric, no tenderness at palpation LUNGS: Lungs are coarse with decreased breath sounds. No wheezing or crackles. CVS: Regular rate and rhythm, S1 and S2 present, no murmurs or gallops appreciated. ABDOMEN: Soft, non-tender. Bowel sounds are normal. No abdominal abnormal pulsations. EXTREMITIES: Full ROM in all major joints, no edema, no cyanosis or clubbing. NEURO: Alert and oriented x 3. No acute neurological deficits. Speech is normal and follows commands. SKIN: Dry and warm Triage Information Reviewed: Yes Vital Signs: Initial Vital Signs Temp 97.6 F 07/05/17 14:22 Pulse 84 07/05/17 14:22 Resp 18 07/05/17 14:22 BP 134/71 07/05/17 14:22 Pulse Ox 100 07/05/17 14:22 Vital Signs Reviewed: Yes Diagnostics - Radiology CXR Xray Interpretation: No Acute Changes - No radiographic evidence of acute cardiopulmonary disease. physician has reviewed this report. Ear Complaint Course/Dx - Course Course Of Treatment: The patient is an 86 y/o F presenting to [facility] c/o nasal and sinus congestion and ear plugging for the last few days. She additionally c/ o productive cough for the last two days. Patient denies fevers and chills. The patient was found to have increased BP in . The patient will follow up with PCP for better control of BP. CXR is negative. Patient's symptoms are secondary to viral sinusitis. She will be discharged home with Flonase. oI discussed all the findings and test results with the patient. Patient was instructed to return to the urgent care or go to ER immediately if any of the symptoms return or worsens. Plan of care was discussed with the patient, and patient understands and agrees. All questions were answered to patient satisfaction. There were no further complaints or concerns. - Differential Dx/Diagnosis Provider Diagnoses: viral sinusitis Discharge - Sign-Out/Discharge Documenting (check all that apply): Post-Discharge Follow Up - Discharge Plan Condition: Stable Disposition: HOME Prescriptions: Cetirizine HCl/Pseudoephedrine [Zyrtec-D Tablet] 1 each PO BID #202 tab.er.12h Fluticasone NASAL SPRAY 50MCG* [Flonase NASAL SPRAY 50MCG*] 2 spray BOTH NARES DAILY #1 btl Patient Education Materials: Sinusitis (ED) Referrals: Jeff Desai MD [Primary Care Provider] - Additional Instructions: FOLLOW UP WITH YOUR PRIMARY CARE PROVIDER WITHIN ONE WEEK FOR HIGH BLOOD PRESSURE NOTED TODAY. RETURN TO URGENT CARE OR THE ED FOR ANY WORSENING OR NEW SYMPTOMS. - Billing Disposition and Condition Condition: STABLE Disposition: HOME The documentation as recorded by the Reggie carey Natalie accurately reflects the service I personally performed and the decisions made by , Dorian Gamino MD.
== END 2017-07-05 15:18 | disposition home or self-care (01) ==
LOC: UCEAST 14:14
DX: J32.8 Other chronic sinusitis (principal); Z88.2 Allergy status to sulfonamides; I10 Essential (primary) hypertension
CPT/HCPCS: 71046; 99212; G0463

== ENCOUNTER 2018-04-28 07:23 | Inpatient (IN) | payer MEDICARE, BC ==
--- NOTE | 2018-04-15 12:41 | HP ---
AMENDED REPORT NOW INCLUDES COSIGNER DESIGNATION HISTORY AND PHYSICAL: DATE OF ADMISSION/SURGERY: 04/28/18 DATE OF OFFICE VISIT: 04/15/18 SRGEON: Saadia Cee MD * (DICTATED BY LING VARMA) PROCEDURE: Left total knee arthroplasty. CHIEF COMPLAINT: Left knee pain. HISTORY OF PRESENT ILLNESS: Ms. Plascencia is an 87-year-old female with end-stage osteoarthritis of the left knee. She has elected to proceed with a left total knee arthroplasty. PAST MEDICAL HISTORY: Hypertension, high cholesterol, mitral valve disorder, and essential tremor. PAST SURGICAL HISTORY: Right total knee arthroplasty, right shoulder replacement, right shoulder arthroscopy, hernia repair, cataract removal, carpal tunnel release, hammertoe surgery, and bunionectomy. CURRENT MEDICATIONS: 1. Fluoxetine 20 mg a day. 2. Primidone 50 mg 2 in the morning and 3 at night before bed. 3. Lisinopril 10 mg a day. 4. Atorvastatin calcium 20 mg q.h.s. 5. Zolpidem tartrate 5 mg as needed. ALLERGIES: To SULFA ANTIBIOTICS. FAMILY HISTORY: Cancer and coronary artery disease. SOCIAL HISTORY: She is an 87-year-old female, lives with her . She does not smoke. Uses occasional alcohol. REVIEW OF SYSTEMS: A complete 14-point review of systems was reviewed with the patient, it was all negative or noncontributory. She denies history of DVT, PE , hepatitis, HIV, or anesthesia problems. PHYSICAL EXAMINATION GENERAL: She is well developed, well nourished, in no acute distress. VITAL SIGNS: She stands 5 feet tall, weighs 112 pounds. Her blood pressure is 126/80, her heart rate is 68. HEENT: Normocephalic, atraumatic. NECK: Supple. No palpable lymph nodes. PULMONARY: The lungs are clear to auscultation bilaterally. CARDIO: Regular rate and rhythm. Strong S1, S2. ABDOMEN: Soft, nontender, and nondistended. NEUROLOGICAL: She is alert and oriented x3. MUSCULOSKELETAL: Left lower extremity: The skin is intact. There are no open wounds or abrasions. There is a 12 degree valgus deformity of the knee which corrects passively by 5 degrees. Range of motion is 5 to 125 degrees of flexion. She has 2+ dorsalis pedis pulse. She is able to dorsiflex and plantarflex and has intact sensation. ASSESSMENT AND PLAN: Ms. Plascencia is an 87-year-old female with end-stage osteoarthritis of the left knee. She has failed conservative treatment and elected to proceed with a left total knee arthroplasty. The surgery is scheduled for 04/28/[address] Cee discussed the risks and benefits of the surgery at today's visit and all of her questions were answered. She will follow with Dr. Cee 2 weeks after the surgery. LING VARMA [id number]/[facility] #: [id number] MARCY
[~2018-04-28 07:23] MED LIST changes: -Buffered Lidocaine 0.9% SYRIN* 5 ML/SYR SYRINGE INTRADERM ONE; +Buffered Lidocaine 1% SYRIN* 1 ML/SYRINGE INTRADERM ONE; +Dexamethasone IV* 4 MG/ML 1 ML (4 MG) IV SLOW PU ONE; +Gabapentin CAP(*) 300 MG PO ONE; +Lactated Ringers 1000 ML Bag* 1,000 ML IV SCH; +Tranexamic Acid 1,000 MG in NS 0.9% 50 ML* (outpatient use) IV SCH; +celeCOXIB CAP* 200 MG PO ONE
--- OUTSIDE RECORDS SUMMARY | 2018-04-28 07:27 | XMS REPORT | Continuity of Care Document ---
:1931 External Reference #:[id number] Author Name Danielle Colbert Care Team Providers Name Role Phone Jeff Desai MD Primary Care Physician Unavailable Payers Date Identification Numbers Payment Provider Subscriber Effective: 1996 Policy Number: [id number] Medicare Dayana Plascencia Expires: 2018 PayID: [id number] [address] [facility] [place] [address] Policy Number: [id number] Medicare Dayana Plascencia PayID: [id number] [address] [facility] [place] [address] Effective: 2012 Policy Number: [id number] [facility] Dayana Plascencia PayID: [id number] [address] [address] [place] [address] Advance Directives Description No Information Available Problems Date Description Provider Status Onset: 12/26/2013 Essential tremor Reji Colorado M.D. Active Onset: 01/31/2015 Mitral valve disorder Mayito Maria M.D. Active Onset: 01/07/2017 Sprain of shoulder and upper arm Juan R Hobbs MD Active Onset: 01/07/2017 Localized, primary osteoarthritis Juan R Hobbs MD Active Onset: 03/05/2017 Acquired genu francheskagum Saadia Cee M.D. Active Family History Date Family Member(s) Observation Comments General cancer General heart disease General Hypertension Social History Type Date Description Comments Sex Unknown Marital Status Lives With Spouse Occupation retired Tobacco Use Start: Unknown Never Smoked Cigarettes Smoking Status Reviewed: 04/15/18 Never Smoked Cigarettes ETOH Use Consumes 1 glass of wine per day Tobacco Use Start: Unknown Patient has never smoked Recreational Drug Use Denies Drug Use Exercise Type/Frequency Exercises regularly Allergies, Adverse Reactions, Alerts Date Description Reaction Status Severity Comments 09/07/2012 Sulfa Antibiotics rash Active Medications Medication Date Status Form Strength Qnty SIG Indications Ordering Provider Juan Luis 04/21/ Active Misc 1unit front wheeled Saadia 2018 s walker s/p Coleman, right total M.D. knee replacement Fluoxetine 03/09/ Active Capsules 20mg 90cap 1 po qd (pt Elia 2013 s takes 40mg Young, daily) M.D. Primidone 01/04/ Active Tablets 50mg 150ta 2 by mouth Reji S. 2012 bs every morning Miroslava, and 3 every M.D. night at bedtime Lisinopril / Active Tablets 10mg 1 po qd Unknown 0000 Atorvastatin / Active Tablets 20mg take 1 tablet Unknown Calcium 0000 at bedtime Zolpidem / Active 5mg 1 tab as Unknown Tartrate 0000 needed Tylenol / Active Tablets 500mg 2 tabs by Unknown 0000 mouth every 4 hours as needed Colace 05/06/ Hx Capsules 100mg 90cap 1 tab every Saadia 2018 - s 12 hours as Coleman, 06/17/ needed for M.D. 2018 constipation Coumadin 05/06/ Hx Tablets 2mg 90tab 1-3 tabs Saadia 2017 - s daily dose Coleman, 06/17/ per inr draws M.D. 2018 Percocet 05/06/ Hx Tablets 5-325mg 70tab 1-2 tabs Saadia 2018 - s every 4-6 Coleman, 06/21/ hours as M.D. 2018 needed for pain. max of 10 tabs per day Shower Bench 04/21/ Hx 1unit Shower bench Saadia 2017 - s s/p right TKA Coleman, 03/27/ M.D. 2019 Colace 05/17/ Hx Capsules 100mg 60cap 1 capsule by Elia 2013 - s mouth twice a Young, 06/22/ day as needed M.D. 2013 constipation from narcotic use Mobic 12/23/ Hx Tablets 7.5mg 90tab 1 po qd prn Ted 2012 - Luis Antonio, 03/09/ Stephane 2013 Ultram 12/23/ Hx Tablets 50mg 80tab 1-2 po bid Ted 2012 prn, take tab Luis Antonio, 01/04/ with one ES Stephane 2012 Tylenol Calcium 1000 + / Hx Tablets 1000-800m 3 po qd Unknown D 0000 - g-Unit 2014 Aspirin 00/ Hx Tablets 81mg 1 po qd Unknown 0000 - DR 2013 Citalopram / Hx Tablets 20mg 1 po qd Unknown Hydrobromide 0000 - 2012 Acetaminophen / Hx Tablets 500mg take 2 Unknown 0000 - tablets by 08/02/ mouth every 8 2015 hours as needed for pain Zolpidem / Hx Tablets 5mg 1 tab at Unknown Tartrate 0000 - bedtime as 02/23/ needed for 2016 sleep Gabapentin / Hx Capsules 300mg 90cap 1 po tid Unknown 0000 - s 2013 Sertraline HCL / Hx Tablets 25mg 1 po qd Unknown 0000 - 2013 Meloxicam / Hx Tablets 7.5mg 30tab 1 by mouth Unknown 0000 - s every day as needed 2013 Tylenol Extra / Hx Tablets 500mg 100ta as needed Unknown Strength 0000 - bs 2017 Aleve /00/ Hx 1 tab as Unknown 0000 - needed 1967 Aspirin 00/ Hx Tablets 325mg take 1 by Unknown 0000 - mouth twice a 2018 Aleve /00/ Hx 220mg as needed Unknown 0000 - 2018 Medications Administered in Office Medication Date Status Form Strength Qnty SIG Indications Ordering Provider Triamcinolone 06/22/ Administered Injection Zaneb (Kenalog) 2017 MD Anjel Depomedrol 40MG 03/05/ Administered Injection Saadia 2017 Stephane Cee Triamcinolone 01/07/ Administered Injection Zaneb (Kenalog) 2016 MD Anjel Triamcinolone 12/11/ Administered Injection Lashawn (Kenalog) 2016 MARLENE Burk Depomedrol 80MG 12/23/ Administered Injection Ted 2012 Stephane Salmon Depomedrol 80MG 10/05/ Administered Injection Pedro 2012 Jennie Long Depomedrol 80MG 05/04/ Administered Injection Pedro 2012 Jennie Long Depomedrol 80MG 05/04/ Administered Injection Pedro 2012 Jennie Long Depomedrol 80MG 04/24/ Administered Injection Ted 2010 Stephane Salmon Depomedrol 80MG 02/12/ Administered Injection Ted 2009 Stephane Salmon Immunizations Description No Information Available Vital Signs Date Vital Result Comment 04/15/2018 10:22am Height 60 inches 5'0" Weight 112.00 lb Heart Rate 68 /min BP Systolic 126 mmHg BP Diastolic 80 mmHg BMI (Body Mass Index) 21.9 kg/m2 04/13/2018 9:31am Height 60 inches 5'0" Weight 112.00 lb w/o shoes Heart Rate 74 /min BP Systolic Sitting 130 mmHg Rue reg cuff BP Diastolic Sitting 80 mmHg Rue reg cuff BP Systolic Standing 110 mmHg Rue reg cuff BP Diastolic Standing 70 mmHg Rue reg cuff Respiratory Rate 17 /min BMI (Body Mass Index) 21.9 kg/m2 Ejection Fraction 60-65% 03/17/18 echo 03/28/2018 11:20am Height 60 inches 5'0" Weight 113.00 lb BP Systolic 140 mmHg BP Diastolic 90 mmHg Body Temperature 97.8 F BMI (Body Mass Index) 22.1 kg/m2 03/22/2018 10:06am Height 60 inches 5'0" Weight 114.25 lb with boots Heart Rate 64 /min BP Systolic Sitting 142 mmHg reg adult cuff left arm BP Diastolic Sitting 80 mmHg reg adult cuff left arm Respiratory Rate 20 /min BMI (Body Mass Index) 22.3 kg/m2 03/09/2018 1:31pm Height 60 inches 5'0" Weight 109.00 lb with out shoes Heart Rate 70 /min BP Systolic Sitting 110 mmHg Lue reg cuff BP Diastolic Sitting 80 mmHg Lue reg cuff BP Systolic Standing 112 mmHg Lue reg cuff BP Diastolic Standing 72 mmHg Lue reg cuff Respiratory Rate 16 /min BMI (Body Mass Index) 21.3 kg/m2 Ejection Fraction 60-65% date 09/07/16 ECHO 08/02/2017 1:21pm Height 60 inches 5'0" Weight 107.00 lb BP Systolic 126 mmHg BP Diastolic 68 mmHg Body Temperature 98.0 F BMI (Body Mass Index) 20.9 kg/m2 06/22/2017 10:53am Height 60 inches 5'0" Weight 110.00 lb Heart Rate 68 /min BP Systolic 140 mmHg BP Diastolic 86 mmHg Respiratory Rate 16 /min Body Temperature 97.0 F Pain Level 3 BMI (Body Mass Index) 21.5 kg/m2 06/18/2017 1:51pm Height 60 inches 5'0" Weight 110.00 lb BP Systolic 144 mmHg BP Diastolic 88 mmHg Body Temperature 97.5 F BMI (Body Mass Index) 21.5 kg/m2 05/19/2017 10:45am Height 61 inches 5'1" Weight 107.50 lb BP Systolic Sitting 142 mmHg LA reg cuff BP Diastolic Sitting 88 mmHg LA reg cuff Pain Level 2 BMI (Body Mass Index) 20.3 kg/m2 05/14/2017 9:15am Height 61 inches 5'1" Weight 111.00 lb BP Systolic 122 mmHg BP Diastolic 74 mmHg Respiratory Rate 20 /min Body Temperature 97.6 F Pain Level 2 BMI (Body Mass Index) 21.0 kg/m2 04/21/2017 8:58am Height 61 inches 5'1" Weight 111.00 lb Heart Rate 66 /min BP Systolic 120 mmHg BP Diastolic 78 mmHg Respiratory Rate 18 /min Body Temperature 96.5 F Pain Level 0 BMI (Body Mass Index) 21.0 kg/m2 03/17/2017 9:42am Height 61 inches 5'1" Weight 112.00 lb Heart Rate 62 /min BP Systolic Sitting 132 mmHg BP Diastolic Sitting 70 mmHg Respiratory Rate 15 /min BMI (Body Mass Index) 21.2 kg/m2 03/05/2017 10:16am Height 61 inches 5'1" Weight 115.00 lb Heart Rate 60 /min BP Systolic 140 mmHg BP Diastolic 82 mmHg Respiratory Rate 16 /min Body Temperature 98.0 F BMI (Body Mass Index) 21.7 kg/m2 03/03/2017 11:11am Height 61 inches 5'1" Weight 115.00 lb with shoes Heart Rate 66 /min BP Systolic Sitting 120 mmHg Lue reg cuff BP Diastolic Sitting 70 mmHg Lue reg cuff BP Systolic Standing 116 mmHg Lue reg cuff BP Diastolic Standing 68 mmHg Lue reg cuff Respiratory Rate 15 /min BMI (Body Mass Index) 21.7 kg/m2 Ejection Fraction 60-65% 09/07/2016-echo 03/01/2017 2:23pm Height 61 inches 5'1" Weight 115.00 lb BP Systolic 136 mmHg BP Diastolic 82 mmHg Body Temperature 98.3 F BMI (Body Mass Index) 21.7 kg/m2 01/07/2017 2:36pm Height 60.5 inches 5'0.50" Weight 115.00 lb Heart Rate 70 /min Respiratory Rate 14 /min Body Temperature 98.7 F Pain Level 0 BMI (Body Mass Index) 22.1 kg/m2 12/11/2016 11:36am Height 60.5 inches 5'0.50" Weight 115.00 lb BP Systolic 128 mmHg BP Diastolic 78 mmHg Respiratory Rate 14 /min Body Temperature 97.5 F Pain Level 5 BMI (Body Mass Index) 22.1 kg/m2 08/07/2016 1:50pm Height 60.5 inches 5'0.50" Weight 114.00 lb without shoes Heart Rate 70 /min BP Systolic Sitting 128 mmHg Lue reg cuff BP Diastolic Sitting 76 mmHg Lue reg cuff BP Systolic Standing 130 mmHg Lue reg cuff BP Diastolic Standing 76 mmHg Lue reg cuff Respiratory Rate 17 /min BMI (Body Mass Index) 21.9 kg/m2 Ejection Fraction >70% date 09/13/2015 ECHO 02/25/2016 8:27am Height 60.25 inches 5'0.25" Weight 115.00 lb Heart Rate 76 /min BP Systolic Sitting 116 mmHg BP Diastolic Sitting 68 mmHg Respiratory Rate 14 /min BMI (Body Mass Index) 22.3 kg/m2 08/22/2015 9:31am Height 60.25 inches 5'0.25" Weight 118.31 lb with shoes Heart Rate 72 /min BP Systolic Sitting 104 mmHg Ra reg cuff BP Diastolic Sitting 64 mmHg Ra reg cuff BP Systolic Standing 110 mmHg Ra reg cuff BP Diastolic Standing 60 mmHg Ra reg cuff Respiratory Rate 16 /min BMI (Body Mass Index) 22.9 kg/m2 Ejection Fraction 60-65% 01/22/14 05/09/2015 9:48am Height 60.25 inches 5'0.25" Weight 116.00 lb Heart Rate 88 /min BP Systolic Sitting 148 mmHg BP Diastolic Sitting 80 mmHg Respiratory Rate 16 /min BMI (Body Mass Index) 22.5 kg/m2 01/31/2015 8:46am Height 60.25 inches 5'0.25" Weight 115.00 lb w/o shoes Heart Rate 74 /min reg BP Systolic Sitting 130 mmHg Rue, reg cuff BP Diastolic Sitting 78 mmHg Rue, reg cuff BP Systolic Standing 126 mmHg Rue BP Diastolic Standing 78 mmHg Rue Respiratory Rate 18 /min BMI (Body Mass Index) 22.3 kg/m2 Ejection Fraction 57% as of 09/14/13 echo 08/03/2014 1:31pm Height 60.25 inches 5'0.25" Weight 115.00 lb with shoes Heart Rate 70 /min BP Systolic Sitting 110 mmHg Ra reg cuff BP Diastolic Sitting 60 mmHg Ra reg cuff BP Systolic Standing 102 mmHg Ra reg cuff BP Diastolic Standing 60 mmHg Ra reg cuff Respiratory Rate 16 /min BMI (Body Mass Index) 22.3 kg/m2 Ejection Fraction 57% date 09/14/13 05/03/2014 9:33am Height 60.25 inches 5'0.25" Weight 116.00 lb w/o shoes Heart Rate 68 /min BP Systolic Sitting 122 mmHg LA, reg cuff BP Diastolic Sitting 80 mmHg LA, reg cuff BP Systolic Standing 116 mmHg LA BP Diastolic Standing 82 mmHg LA Respiratory Rate 18 /min BMI (Body Mass Index) 22.5 kg/m2 02/02/2014 1:01pm Height 60.25 inches 5'0.25" Weight 114.31 lb with shoes Heart Rate 82 /min BP Systolic Sitting 152 mmHg LA reg cuff BP Diastolic Sitting 94 mmHg LA reg cuff BP Systolic Standing 148 mmHg LA reg cuff BP Diastolic Standing 92 mmHg LA reg cuff Respiratory Rate 17 /min BMI (Body Mass Index) 22.1 kg/m2 01/05/2014 1:07pm Height 60.25 inches 5'0.25" Weight 115.00 lb with shoes Heart Rate 70 /min BP Systolic 126 mmHg Ra reg cuff BP Diastolic 80 mmHg Ra reg cuff BP Systolic Sitting 124 mmHg La reg cuff BP Diastolic Sitting 80 mmHg La reg cuff BP Systolic Standing 120 mmHg La reg cuff BP Diastolic Standing 86 mmHg La reg cuff Respiratory Rate 16 /min BMI (Body Mass Index) 22.3 kg/m2 01/04/2014 2:49pm Height 61 inches 5'1" Heart Rate 75 /min BP Systolic 117 mmHg BP Diastolic 71 mmHg Pain Level 3 12/26/2013 3:39pm Height 61 inches 5'1" Weight 115.00 lb Heart Rate 76 /min BP Systolic Sitting 130 mmHg BP Diastolic Sitting 80 mmHg Respiratory Rate 16 /min BMI (Body Mass Index) 21.7 kg/m2 11/30/2013 11:06am Height 61 inches 5'1" Weight 115.00 lb Heart Rate 72 /min BP Systolic 134 mmHg BP Diastolic 85 mmHg BMI (Body Mass Index) 21.7 kg/m2 08/31/2013 10:26am Height 61 inches 5'1" Weight 115.00 lb Heart Rate 81 /min BP Systolic 160 mmHg BP Diastolic 90 mmHg BMI (Body Mass Index) 21.7 kg/m2 07/20/2013 10:49am Height 60 inches 5'0" Weight 111.00 lb Heart Rate 72 /min BP Systolic 135 mmHg BP Diastolic 77 mmHg Pain Level 3 BMI (Body Mass Index) 21.7 kg/m2 07/19/2013 3:08pm Height 60 inches 5'0" Weight 111.00 lb Heart Rate 72 /min BP Systolic Sitting 120 mmHg BP Diastolic Sitting 84 mmHg Respiratory Rate 16 /min BMI (Body Mass Index) 21.7 kg/m2 06/08/2013 10:10am Height 60 inches 5'0" Weight 115.00 lb Body Temperature 97.2 F BMI (Body Mass Index) 22.5 kg/m2 05/17/2013 9:28am Height 60 inches 5'0" Weight 115.00 lb Heart Rate 70 /min BP Systolic 125 mmHg BP Diastolic 77 mmHg BMI (Body Mass Index) 22.5 kg/m2 04/18/2013 10:12am Height 60 inches 5'0" Weight 119.00 lb Heart Rate 72 /min BP Systolic 130 mmHg BP Diastolic 86 mmHg BMI (Body Mass Index) 23.2 kg/m2 03/09/2013 8:07am Height 61 inches 5'1" Weight 120.00 lb Heart Rate 72 /min BP Systolic 135 mmHg BP Diastolic 88 mmHg BMI (Body Mass Index) 22.7 kg/m2 01/04/2013 11:12am Heart Rate 70 /min BP Systolic Sitting 120 mmHg BP Diastolic Sitting 76 mmHg Respiratory Rate 18 /min 09/07/2012 10:00am Height 61 inches 5'1" Weight 120.00 lb Heart Rate 68 /min BP Systolic Sitting 118 mmHg BP Diastolic Sitting 76 mmHg Respiratory Rate 12 /min BMI (Body Mass Index) 22.7 kg/m2 07/02/2010 8:46am Height 62 inches 5'2" Weight 140.00 lb Heart Rate 68 /min BP Systolic 180 mmHg BP Diastolic 95 mmHg BMI (Body Mass Index) 25.6 kg/m2 Results Test Date Facility Test Result H/L Range Note CBC Auto Diff 05/10/2017 [facility] White Blood 7.5 10^3/uL N 3.5-10.[address] [place] [address] [phone] Red Blood Count 2.50 10^6/uL Low 4.0-5.4 Hemoglobin 8.2 g/dL Low 12.0-16.0 Hematocrit 24 % Low 35-47 Mean Corpuscular Volume 95 fL N 80-97 Mean Corpuscular Hemoglobin 33 pg High 27-31 Mean Corpuscular HGB Conc 34 g/dL N 31-36 Red Cell Distribution Width 13 % N 10.5-15 Platelet Count 216 10^3/uL N 150-450 Mean Platelet Volume 9 um3 N 7.4-10.4 Abs Neutrophils 5.0 10^3/uL N 1.5-7.7 Abs Lymphocytes 1.3 10^3/uL N 1.0-4.8 Abs Monocytes 0.8 10^3/uL N 0-0.8 Abs Eosinophils 0.2 10^3/uL N 0-0.6 Abs Basophils 0.1 10^3/uL N 0-0.2 Abs Nucleated RBC 0 10^3/uL Granulocyte % 67.5 % N 38-83 Lymphocyte % 17.8 % Low 25-47 Monocyte % 11.1 % High 0-7 Eosinophil % 2.5 % N 0-6 Basophil % 1.1 % N 0-2 Nucleated Red Blood Cells % 0.1 Inr/Protime 04/21/2017 [facility] Inr 0.94 N 0.77-1.[address] [place] [address] [phone] Laboratory test 04/21/2017 [facility] Partial 30.5 seconds N 26.0-36.[address] [place] [address] PTT [phone] Type & Screen 04/21/2017 [facility] Patient A Positive [address] Blood Type [place], [place] [id number] [phone] Antibody Screen NEGATIVE Pre Cath Panel 01/26/2014 [facility] Activated 29.5 seconds N 24.0-36.[address] [place] [address] Thrombo Time [phone] Basic Metabolic 01/26/2014 [facility] Sodium 139 mmol/L N 133- [address] [place] [address] [phone] Potassium 3.8 mmol/L N 3.5-5.0 Chloride 102 mmol/L N 101-111 Co2 Carbon Dioxide 29 mmol/L N 22-32 Anion Gap 8 mmol/L N 2-11 Glucose 75 mg/dL N 70-100 Blood Urea Nitrogen 14 mg/dL N 6-24 Creatinine 0.60 mg/dL N 0.51-0.95 BUN/Creatinine Ratio 23.3 High 8-20 Calcium 9.7 mg/dL N 8.6-10.3 Egfr Non- 95.7 N >60 Egfr 123.1 N >60 3 Inr/Protime 01/26/2014 [facility] Inr 0.92 N 0.85-1.[address] [place] [address] [phone] CBC Auto Diff 01/26/2014 [facility] White Blood 5.9 10^3/uL N 4.8-10.[address] [place] [address] [phone] Red Blood Count 3.89 10^6/uL Low 4.0-5.4 Hemoglobin 12.5 g/dL N 12.0-16.0 Hematocrit 37 % N 35-47 Mean Corpuscular Volume 95 fL N 80-97 Mean Corpuscular Hemoglobin 32 pg High 27-31 Mean Corpuscular HGB Conc 34 g/dL N 31-36 Red Cell Distribution Width 13 % N 10.5-15 Platelet Count 195 10^3/uL N 150-450 Mean Platelet Volume 9 um3 N 7.4-10.4 Abs Neutrophils 3.9 10^3/uL N 1.5-7.7 Abs Lymphocytes 1.3 10^3/uL N 1.0-4.8 Abs Monocytes 0.4 10^3/uL N 0-0.8 Abs Eosinophils 0.1 10^3/uL N 0-0.6 Abs Basophils 0.1 10^3/uL N 0-0.2 Abs Nucleated RBC 0 10^3/uL N Granulocyte % 67.2 % N 38-83 Lymphocyte % 22.2 % Low 25-47 Monocyte % 7.5 % N 1-9 Eosinophil % 2.1 % N 0-6 Basophil % 1.0 % N 0-2 Nucleated Red Blood Cells % 0.1 N Type & Screen 05/17/2013 [facility] Patient Blood Type A Positive N [address] [place] [address] [phone] Antibody Screen NEGATIVE N Urinalysis 04/18/2013 [facility] Urine Color Yellow [address] [place] [address] [phone] Urine Appearance Clear Urine Specific [place] 1.010 1.010-1.030 Urine Esterase Negative Negative Urine Nitrate Negative Negative Urine Urobilinogen Negative E.U./dL Negative Urine Protein Negative mg/dL Negative Urine pH 7.5 5-9 Urine Blood Negative Negative Urine Ketones Negative mg/dL Negative Urine Bilirubin Negative Negative Urine Glucose Negative mg/dL Negative Basic Metabolic Panel 04/18/2013 [facility] Sodium 139 mmol/L 133-145 [address] [place] [address] [phone] Potassium 3.9 mmol/L 3.7-5.6 Chloride 103 mmol/L 101-111 Co2 Carbon Dioxide 30 mmol/L 22-32 Anion Gap 6 mmol/L 2-11 Glucose 82 mg/dL 70-100 Blood Urea Nitrogen 13 mg/dL 6-24 Creatinine 0.73 mg/dL 0.51-0.95 BUN/Creatinine Ratio 17.8 8-20 Calcium 9.9 mg/dL 8.6-10.3 Egfr Non- 76.5 >60 Egfr 98.4 >60 5 Laboratory test 04/18/2013 [facility] Activated 31.1 seconds 24.0-36.1 finding [address] [facility] [place] [address] Thrombo Time [phone] Inr/Protime 04/18/2013 [facility] Inr 0.97 0.85-1.06 [address] [place] [address] [phone] CBC No Diff 04/18/2013 [facility] White Blood 5.5 10^3/uL 4.8 -10.[address] [place] [address] [phone] Red Blood Count 4.02 10^6/uL 4.0-5.4 Hemoglobin 12.5 g/dL 12.0-16.0 Hematocrit 37 % 35-47 Mean Corpuscular Volume 92 fL 80-97 Mean Corpuscular Hemoglobin 31 pg 27-31 Mean Corpuscular HGB Conc 34 g/dL 31-36 Red Cell Distribution Width 14 % 10.5-15 Platelet Count 185 10^3/uL 150-450 Mean Platelet Volume 9 um3 7.4-10.4 1 [id number] 2 PAIN IN RIGHT KNEE, BILATERAL PRIMARY OSTEOARTHRIT 3 Because ethnic data is not always readily available, this report includes an eGFR for both -Americans and non- Americans. The National Kidney Disease Education Program (NKDEP) does not endorse the use of the MDRD equation for patients that are not between the ages of 18 and 70, are , have extremes of body size, muscle mass, or nutritional status, or are non- or non-. According to the National Kidney Foundation, irrespective of diagnosis, the stage of the disease is based on the level of kidney function: Stage Description GFR(mL/min/1.73 m(2)) 1 Kidney damage with normal or decreased GFR 90 2 Kidney damage with mild decrease in GFR 60-89 3 Moderate decrease in GFR 30-59 4 Severe decrease in GFR 15-29 5 Kidney failure <15 (or dialysis) 4 RIGHT SHOULDER ROTATOR CUFF TEAR 5 Because ethnic data is not always readily available, this report includes an eGFR for both -Americans and non- Americans. The National Kidney Disease Education Program (NKDEP) does not endorse the use of the MDRD equation for patients that are not between the ages of 18 and 70, are , have extremes of body size, muscle mass, or nutritional status, or are non- or non-. According to the National Kidney Foundation, irrespective of diagnosis, the stage of the disease is based on the level of kidney function: Stage Description GFR(mL/min/1.73 m(2)) 1 Kidney damage with normal or decreased GFR 90 2 Kidney damage with mild decrease in GFR 60-89 3 Moderate decrease in GFR 30-59 4 Severe decrease in GFR 15-29 5 Kidney failure <15 (or dialysis) Procedures Date Code Description Status 04/13/2018 03364 EKG Tracing & Interpretation Completed 03/17/2018 35968 ECHO Transthoracic, Real-Time 2D With Doppler And Color Completed Flow 03/17/2018 16038 ECHO Transthoracic, Real-Time 2D With Doppler And Color Completed Flow 03/09/2018 27158 EKG Tracing & Interpretation Completed 06/22/2017 70920 Inject/Drain Joint/Bursa Major W/O US Completed 05/04/2017 94742 TKR Total Knee Replacement Completed 05/04/2017 61295 TKR Total Knee Replacement Completed 05/04/2017 20329 TKR Total Knee Replacement Completed 05/04/2017 66474 TKR Total Knee Replacement Completed 03/05/2017 96061 Inject/Drain Joint/Bursa Major W/O US Completed 03/03/2017 51227 EKG Tracing & Interpretation Completed 01/07/2017 69167 Inject/Drain Joint/Bursa Major W/O US Completed 12/11/2016 55643 Inject/Drain Joint/Bursa Major W/O US Completed 09/07/2016 08739 ECHO Transthoracic, Real-Time 2D With Doppler And Color Completed Flow 08/07/2016 80321 EKG Tracing & Interpretation Completed 09/13/2015 13592 ECHO Transthoracic, Real-Time 2D With Doppler And Color Completed Flow 04/30/2015 08026 Repair Hernia Inguinal > 5Yrs, Reducible Completed 01/31/2015 34677 EKG Tracing & Interpretation Completed 01/30/2014 07226 RT & lt Cath W/Injx HRT Art&L Ventr Img S&I Completed 01/22/2014 65476 Echocardiography, Transesophageal, Real Time W/Image 2D Completed W/W/O M-M 01/22/2014 14315 Pulse Wave/Continuous-Interp.RPT Completed 01/22/2014 11093 Color Flow Doppler/Interp & Reprt Completed 01/05/2014 87997 EKG Tracing & Interpretation Completed 11/30/2013 69282 Rad Shoulder Comp, Min. 2 Views Completed 09/14/2013 79970 ECHO Transthoracic, Real-Time 2D With Doppler And Color Completed Flow 06/08/2013 35895 Rad Shoulder Comp, Min. 2 Views Completed 05/24/2013 48730 Arthroplasty,Total Shoulder Replacement (TSR) Completed 05/24/2013 26146 Arthroplasty,Total Shoulder Replacement (TSR) Completed 03/09/2013 10966 Rad Shoulder Comp, Min. 2 Views Completed 12/23/201267643 Inject/Drain Joint/Bursa Major W/O US Completed 10/05/201249402 Inject/Drain Joint/Bursa Major W/O US Completed 05/04/201240818 Inject/Drain Joint/Bursa Major W/O US Completed 05/04/201285298 Inject/Drain Joint/Bursa Major W/O US Completed 04/20/2011 95179 Carpal Tunnel Release Completed 04/20/2011 67252 Carpal Tunnel Release Completed 07/16/2010 97037 Arthroscopy Shoulder,W/Rotator Cuff Repair Completed 07/16/2010 44622 Arthroscopy Shoulder,W/Rotator Cuff Repair Completed 07/16/2010 24096 Arthroscopy,Shoulder Decompression Of Subacromial Space Completed W/Acromio 07/16/2010 78890 Arthroscopy,Shoulder Decompression Of Subacromial Space Completed W/Acromio 04/24/201055304 Inject/Drain Joint/Bursa Major W/O US Completed 04/03/2010 05262 Rad Exam; Wrist, Comp, Min 3 Views Completed 02/12/201057560 Inject/Drain Joint/Bursa Major W/O US Completed 11/13/2009 57504 Rad Shoulder Comp, Min. 2 Views Completed Encounters Type Date Location Provider Dx Diagnosis Office Visit 04/13/2018 [facility] Mayito Ruggiero I34.0 Nonrheumatic mitral 9:45a [facility] [place] [facility] M.D. (valve) insufficiency Z01.810 Encounter for preprocedural cardiovascular examination M17.12 Unilateral primary osteoarthritis, left knee Office Visit 03/28/2018 11:[facility] Saadia Cee, M25.562 Pain in left Of C.M.A. M.D. 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 G25.0 Essential tremor Services [facility] [place] M.D. 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 hypertension I34.0 Nonrheumatic mitral (valve) insufficiency I45.10 Unspecified right bundle-branch block Office Visit 08/02/2017 1:15p Orthopedic Saadia Cee, Z47.1 Aftercare Services Of [place] following joint C.M.A. replacement surgery Z96.651 Presence of right artificial knee joint M25.561 Pain in right knee M25.462 Effusion, left knee M25.562 Pain in left knee M17.12 Unilateral primary osteoarthritis, left knee W19.xxxA Unspecified fall, initial encounter Office 06/22/2017 Orthopedic Juan R Hobbs MD S46.012D Strain of Visit 10:45a Services Of musc/tend the C.M.A. rotator cuff of left shoulder, subs Office 05/06/2017 [facility] Theresa Landers I10 Essential Visit 10:52a Assoc,marina Souza NP (primary) Hospitalists hypertension E78.5 Hyperlipidemia, unspecified Z96.651 Presence of right artificial knee joint Office Visit 05/05/2017 10:51a [facility] Skyla I10 Essential Assoc,marina Moya NP (primary) Hospitalists hypertension E78.5 Hyperlipidemia, unspecified I34.0 Nonrheumatic mitral (valve) insufficiency Z96.651 Presence of right artificial knee joint Office Visit 05/04/2017 10:49a [facility] Cali I10 Essential Assoc,marina Mann, N.P. (primary) Hospitalists hypertension E78.5 Hyperlipidemia, unspecified I34.0 Nonrheumatic mitral (valve) insufficiency Z96.651 Presence of right artificial knee joint Office Visit 03/17/2017 9:45a [place] [facility] Reji S. G25.0 Essential Services Of [place] M.D. tremor Office Visit 03/05/2017 10:00a Orthopedic Saadia Cee, M25.561 Pain in right Services Of [place] knee C.M.A. M25.562 Pain in left knee M17.0 Bilateral primary osteoarthritis of knee M21.061 Valgus deformity, not elsewhere classified, right knee M21.062 Valgus deformity, not elsewhere classified, left knee Office Visit 03/03/2017 [place] Ruggiero I34.0 Nonrheumatic mitral 11:15a Cardiology Of [place] Maria (valve) [facility] insufficiency Office Visit 03/01/2017 Orthopedic Saadia Cee, M25.561 Pain in right knee 2:00p Services Of [place] C.M.ASam M25.562 Pain in left knee M17.0 Bilateral primary osteoarthritis of knee M25.462 Effusion, left knee M25.461 Effusion, right knee Office Visit 01/07/2017 2:30p Orthopedic Juan R Hobbs, S46.012A Strain of Services Of MD cruz/tend the C.M.A. rotator cuff of left shoulder, init M17.0 Bilateral primary osteoarthritis of knee S46.012D Strain of musc/tend the rotator cuff of left shoulder, subs M25.461 Effusion, right knee M25.561 Pain in right knee Office Visit 12/11/2016 11:00a Orthopedic Juan R Hobbs, M25.512 Pain in left Services Of shoulder C.M.A. S46.012A Strain of anthony/tend the rotator cuff of left shoulder, init Office Visit 08/07/2016 1:45p [place] [facility] Mayito Ruggiero I34.0 Nonrheumatic mitral Of [place] M.D. (valve) insufficiency I10 Essential (primary) hypertension Office Visit 02/25/2016 8:30a [place] Reji Crenshaw G25.0 Essential tremor Neurologic [place] Services Of [facility] Office Visit 08/22/2015 9:45a [place] Ruggiero I34.0 Nonrheumatic mitral Cardiology Dunia Maria M.D. (valve) [facility] insufficiency I10 Essential (primary) hypertension Office Visit 05/09/2015 Neurohospitalist Reji Crenshaw G25.0 Essential tremor 9:30a Clinic [place] Office Visit 01/31/2015 [facility] Parminder Ruggiero I34.0 Nonrheumatic 9:00a [place] M.D. mitral (valve) insufficiency I10 Essential (primary) hypertension R94.31 Abnormal electrocardiogram [ECG] [EKG] Office Visit 08/03/2014 1:45p [facility] [facility] Mayito D. 424.0 Mitral Valve Of Jessa Dill.Iván. Disorder Office Visit 05/03/2014 9:45a [facility] Mayito D. 424.0 Mitral Valve Of Jessa Dill.D. Disorder Office Visit 02/02/2014 12:45p [facility] Mayito D. 424.0 Mitral Valve Of Jessa Dill.D. Disorder 785.2 Murmur Cardiac Undiagnosed Office Visit 01/05/2014 1:00p [place] [facility] Mayito D. 785.2 Murmur Cardiac Of Jessa Dill.D. Undiagnosed 424.0 Mitral Valve Disorder 401.9 Hypertension Unspec Office Visit 01/04/2014 2:45p Orthopedic Osmin Claudio0.4 Sprains & Strains Services Of [place] Rotator Cuff C.M.A. (Capsule) Office Visit 12/26/2013 3:45p Alistair Ramos.1 Tremor Essential Neurologic [place] & Other Forms Services Of [facility] Office Visit 11/30/2013 11:15a Jonh Anand 840.4 Sprains & Strains Services Of [place] Rotator Cuff C.M.A. (Capsule) Office Visit 08/31/2013 10:15a Jonh Anand, 716.91 Arthropathy Services Of [place] Unspec Shoulder C.M.A. Region Office Visit 07/19/2013 3:00p Alistair Ramos.1 Tremor Essential Neurologic [place] & Other Forms Services Of Corporation Secretary Office Visit 03/09/2013 8:00a Osmin Gamino0.4 Sprains & Strains Services Of [place] Rotator Cuff C.M.A. (Capsule) Office Visit 01/26/2013 1:30p Orthopedic Jennifer Osorio.4 Sprains & Strains Services Of M.[place]ahman Rotator Cuff C.M.A. (Capsule) Office Visit 01/04/2013 11:00a Alistair Ramos.1 Tremor Essential Neurologic [place] & Other Forms Services Of Corporation Secretary Office Visit 12/23/2012 1:45p Jennifer Briggs.4 Sprains & Strains Services Of [place] Rotator Cuff C.M.A. (Capsule) Office Visit 10/05/2012 1:30p Orthopedic Pedro Solorio0.4 Sprains & Strains Services Of [place], Rotator Cuff C.M.A. R.P.A.-C (Capsule) Office Visit 09/07/2012 10:00a Alistair Crenshaw 333.1 Tremor Essential Neurologic [place] & Other Forms Services Of [facility] 781.2 Gait Abnormality Office Visit 06/30/2012 2:15p Orthopedic Pedro Solorio0.4 Sprains & Services Of [place], Strains Rotator C.M.A. R.P.A.-C Cuff (Capsule) Office Visit 06/10/2012 1:30p Orthopedic Pedro Solorio0.4 Sprains & Services Of [place], Strains Rotator C.M.A. R.P.A.-C Cuff (Capsule) 726.10 Bursae & Tendon Disorders Shoulder Region Unspec Office Visit 05/04/2012 1:30p Orthopedic Pedro Rodriguez.4 Sprains & Services Of [place], Strains Rotator C.M.A. R.P.A.-C Cuff (Capsule) Office Visit 04/21/2012 4:00p Orthopedic Pedro Solorio0.4 Sprains & Services Of [place], Strains Rotator C.M.A. R.P.A.-C Cuff (Capsule) Office Visit 03/25/2011 8:00a Orthopedic Ted Salmon, 354.0 Carpal Tunnel Services Of M.D. Syndrome C.M.A. Office Visit 07/02/2010 9:00a Jonh Solorio0.4 Sprains & Services Of [place], Strains Rotator C.M.A. R.P.A.-C Cuff (Capsule) Office Visit 06/05/2010 9:00a Orthopedic Ted Salmon 840.4 Sprains & Services Of M.D. Strains Rotator C.M.A. Cuff (Capsule) Office Visit 04/24/2010 1:15p Orthopedic Ted Salmon, 726.10 Bursae & Tendon Services Of M.D. Disorders C.M.A. Shoulder Region Unspec Office Visit 04/03/2010 1:15p Orthopedic Ted Salmon, 923.21 Contusion Wrist Services Of M.D. C.M.A. 840.9 Sprains & Strains Shoulder & Upper Arm Unspec Office Visit 02/12/2010 2:00p Jonh Jean 726.5 Enthesopathy Of Services Of [place] Hip Region C.M.A. Office Visit 01/24/2010 11:00a Orthopedic Ted 726.2 Shoulder Region Services Dunia Salmon M.D. Affections Other C.M.A. Not Elsewhere Class 716.10 Arthropathy Traumatic Site Unspec Office Visit 11/13/2009 3:00p Jonh Salmon 726.2 Shoulder Region Services Dunia Calderón Affections Other C.M.A. Not Elsewhere Class Plan of Treatment Future Appointment(s):05/11/2018 10:45 am - Saadia Cee M.D. at Orthopedic Services Of C.M.A.04/28/2018 10:00 am - Saadia Cee M.D. at Orthopedic [facility] C[facility].04/15/2018 - Saadia Cee M.D.M17.12 Unilateral primary osteoarthritis, left kneeFollow up:Follow up: 2 weeks after xoslxsmC44.062 Valgus deformity, not elsewhere classified, left kneeM25.462 Effusion, left kneeM25.562 Pain in left knee
--- OUTSIDE RECORDS SUMMARY | 2018-04-28 07:28 | XMS REPORT | Continuity of Care Document ---
:1930 External Reference #:[id number] Author Name Deborah Crenshaw Care Team Providers Name Role Phone Jeff Desai MD Primary Care Physician Unavailable Payers Date Identification Numbers Payment Provider Subscriber Effective: 1996 Policy Number: [id number] Medicare Dayana Plascencia Expires: 2018 PayID: [id number] [address] [facility] [place] [address] Policy Number: [id number] Medicare Dayana Plascencia PayID: [id number] [address] [facility] [place] [address] Effective: 2012 Policy Number: [id number] [facility] Dayana Plascencia PayID: [id number] [address] [address] [place] [address] Advance Directives Description No Information Available Problems [...] Unknown Never Smoked Cigarettes Smoking Status Reviewed: 04/13/18 Never Smoked Cigarettes ETOH Use Consumes 1 [...] mouth Reji S. 2012 bs every morning [place], and 3 every M.D. night at bedtime [...] Saadia 2017 - s s/p right TKA Colmean, 03/27/ M.D. 2019 Colace 05/17/ Hx Capsules [...] Available Vital Signs Date Vital Result Comment 04/13/2018 9:31am Height 60 inches 5'0" Weight [...] H/L Range Note CBC Auto Diff 05/10/2017 [facility] White Blood 7.5 10^3/uL N 3.5-10.[address] [place] [address] [phone] Red Blood Count 2.50 10^6/uL Low 4.0-5.4 [...] Red Blood Cells % 0.1 Inr/Protime 04/21/2017 [facility] Inr 0.94 N 0.77-1.[address] [place] [address] [phone] Laboratory test 04/21/2017 [facility] Partial 30.5 seconds N 26.0-36.[address] [place] [address] PTT [phone] Type & Screen 04/21/2017 [facility] Patient A Positive [address] [place] [address] [phone] Antibody Screen NEGATIVE Pre Cath Panel 01/26/2014 [facility] Activated 29.5 seconds N 24.0-36.[address] [place] [address] Thrombo Time [phone] Basic Metabolic 01/26/2014 [facility] Sodium 139 mmol/L N 133- [address] [place] [address] [phone] Potassium 3.8 mmol/L N 3.5-5.0 Chloride 102 mmol/L N 101-111 Co2 Carbon Dioxide 29 mmol/L N 22-32 Anion Gap 8 mmol/L N 2-11 Glucose 75 mg/dL N 70-100 Blood Urea Nitrogen 14 mg/dL N 6-24 Creatinine 0.60 mg/dL N 0.51-0.95 BUN/Creatinine Ratio 23.3 High 8-20 Calcium 9.7 mg/dL N 8.6-10.3 Egfr Non- 95.7 N >60 Egfr 123.1 N >60 3 Inr/Protime 01/26/2014 [facility] Inr 0.92 N 0.85-1.[address] [place] [address] [phone] CBC Auto Diff 01/26/2014 [facility] White Blood 5.9 10^3/uL N 4.8-10.[address] [place] [address] [phone] Red Blood Count 3.89 10^6/uL Low 4.0-5.4 [...] % 0.1 N Type & Screen 05/17/2013 [facility] Patient Blood Type A Positive N [address] [place] [address] [phone] Antibody Screen NEGATIVE N Urinalysis 04/18/2013 [facility] Urine Color Yellow [address] [place] [address] [phone] Urine Appearance Clear Urine Specific [place] 1.010 1.010-1.030 Urine Esterase Negative Negative Urine Nitrate Negative Negative Urine Urobilinogen Negative E.U./dL Negative Urine Protein Negative mg/dL Negative Urine pH 7.5 5-9 Urine Blood Negative Negative Urine Ketones Negative mg/dL Negative Urine Bilirubin Negative Negative Urine Glucose Negative mg/dL Negative Basic Metabolic Panel 04/18/2013 [facility] Sodium 139 mmol/L 133-145 [address] [place] [address] [phone] Potassium 3.9 mmol/L 3.7-5.6 Chloride 103 mmol/L 101-111 Co2 Carbon Dioxide 30 mmol/L 22-32 Anion Gap 6 mmol/L 2-11 Glucose 82 mg/dL 70-100 Blood Urea Nitrogen 13 mg/dL 6-24 Creatinine 0.73 mg/dL 0.51-0.95 BUN/Creatinine Ratio 17.8 8-20 Calcium 9.9 mg/dL 8.6-10.3 Egfr Non- 76.5 >60 Egfr 98.4 >60 5 Laboratory test 04/18/2013 [facility] Activated 31.1 seconds 24.0-36.1 finding [address] [place] [address] Thrombo Time [phone] Inr/Protime 04/18/2013 [facility] Inr 0.97 0.85-1.06 [address] [place] [address] [phone] CBC No Diff 04/18/2013 [facility] White Blood 5.5 10^3/uL 4.8 -10.8 [address] [place] [address] [phone] Red Blood Count 4.02 10^6/uL 4.0-5.4 Hemoglobin 12.5 g/dL 12.0-16.0 Hematocrit 37 % 35-47 Mean Corpuscular Volume 92 fL 80-97 Mean Corpuscular Hemoglobin 31 pg 27-31 Mean Corpuscular HGB Conc 34 g/dL 31-36 Red Cell Distribution Width 14 % 10.5-15 Platelet Count 185 10^3/uL 150-450 Mean Platelet Volume 9 um3 7.4-10.4 1 [id number] 2 PAIN IN RIGHT KNEE, BILATERAL PRIMARY [...] dialysis) Procedures Date Code Description Status 04/13/2018 57566 EKG Tracing & Interpretation Completed 03/17/2018 01034 ECHO Transthoracic, Real-Time 2D With Doppler And Color Completed Flow 03/17/2018 15333 ECHO Transthoracic, Real-Time 2D With Doppler And Color Completed Flow 03/09/2018 12008 EKG Tracing & Interpretation Completed 06/22/2017 67499 Inject/Drain Joint/Bursa Major W/O US Completed 05/04/2017 68922 TKR Total Knee Replacement Completed 05/04/2017 78683 TKR Total Knee Replacement Completed 05/04/2017 42270 TKR Total Knee Replacement Completed 05/04/2017 42167 TKR Total Knee Replacement Completed 03/05/2017 97158 Inject/Drain Joint/Bursa Major W/O US Completed 03/03/2017 61583 EKG Tracing & Interpretation Completed 01/07/2017 02681 Inject/Drain Joint/Bursa Major W/O US Completed 12/11/2016 16884 Inject/Drain Joint/Bursa Major W/O US Completed 09/07/2016 27041 ECHO Transthoracic, Real-Time 2D With Doppler And Color Completed Flow 08/07/2016 22823 EKG Tracing & Interpretation Completed 09/13/2015 18200 ECHO Transthoracic, Real-Time 2D With Doppler And Color Completed Flow 04/30/2015 68939 Repair Hernia Inguinal > 5Yrs, Reducible Completed 01/31/2015 26478 EKG Tracing & Interpretation Completed 01/30/2014 52101 RT & lt Cath W/Injx HRT Art&L Ventr Img S&I Completed 01/22/2014 62054 Echocardiography, Transesophageal, Real Time W/Image 2D Completed W/W/O M-M 01/22/2014 08604 Pulse Wave/Continuous-Interp.RPT Completed 01/22/2014 03126 Color Flow Doppler/Interp & Reprt Completed 01/05/2014 68688 EKG Tracing & Interpretation Completed 11/30/2013 96460 Rad Shoulder Comp, Min. 2 Views Completed 09/14/2013 39897 ECHO Transthoracic, Real-Time 2D With Doppler And Color Completed Flow 06/08/2013 04738 Rad Shoulder Comp, Min. 2 Views Completed 05/24/2013 99867 Arthroplasty,Total Shoulder Replacement (TSR) Completed 05/24/2013 27992 Arthroplasty,Total Shoulder Replacement (TSR) Completed 03/09/2013 94401 Rad Shoulder Comp, Min. 2 Views Completed 12/23/2012 Inject/Drain Joint/Bursa Major W/O US Completed 10/05/2012 Inject/Drain Joint/Bursa Major W/O US Completed 05/04/2012 Inject/Drain Joint/Bursa Major W/O US Completed 05/04/2012 Inject/Drain Joint/Bursa Major W/O US Completed 04/20/2011 60495 Carpal Tunnel Release Completed 04/20/2011 08677 Carpal Tunnel Release Completed 07/16/2010 48284 Arthroscopy Shoulder,W/Rotator Cuff Repair Completed 07/16/2010 71804 Arthroscopy Shoulder,W/Rotator Cuff Repair Completed 07/16/2010 06182 Arthroscopy,Shoulder Decompression Of Subacromial Space Completed W/Acromio 07/16/201031142 Arthroscopy,Shoulder Decompression Of Subacromial Space Completed W/Acromio 04/24/2010 Inject/Drain Joint/Bursa Major W/O US Completed 04/03/2010 69032 Rad Exam; Wrist, Comp, Min 3 Views Completed 02/12/2010 Inject/Drain Joint/Bursa Major W/O US Completed 11/13/2009 02339 Rad Shoulder Comp, Min. 2 Views Completed Encounters Type Date Location Provider Dx Diagnosis Office Visit 03/28/2018 Orthopedic Saadia Cee, M25.562 Pain in left knee 11:00a Services Of Vivien Calderón M25.462 Effusion, left knee M17.12 Unilateral primary osteoarthritis, left knee M21.062 Valgus deformity, not elsewhere classified, left knee Office Visit 03/22/2018 9:45a [facility] Reji S. G25.0 Essential tremor Services Of [place] M.D. Z79.899 Other longwall foreman (current) drug therapy Office Visit 03/09/2018 1:30p [facility] Mayito Ruggiero I10 Essential (primary) Of [place] M.D. hypertension I34.0 Nonrheumatic mitral (valve) insufficiency I45.10 Unspecified right bundle-branch block Office Visit 08/02/2017 1:15p Orthopedic Saadia Cee Z47.1 Aftercare Services Of [place] following joint C.M.A. replacement surgery Z96.651 Presence of right artificial knee joint M25.561 Pain in right knee M25.462 Effusion, left knee M25.562 Pain in left knee M17.12 Unilateral primary osteoarthritis, left knee W19.xxxA Unspecified fall, initial encounter Office 06/22/2017 Orthopedic Juan R Hobbs MD S46.012D Strain of Visit 10:45a Services Of [facility]/tend the C.M.A. 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 tremor Office Visit 03/05/2017 10:00a Orthopedic Saadia Cee, M25.561 Pain in right Services Of [place] knee C.M.ASam M25.562 Pain in left knee M17.0 Bilateral primary osteoarthritis of knee M21.061 Valgus deformity, not elsewhere classified, right knee M21.062 Valgus deformity, not elsewhere classified, left knee Office Visit 03/03/2017 [place] Ruggiero I34.0 Nonrheumatic mitral 11:15a Cardiology Of [place] Maria (valve) [place] insufficiency Office Visit 03/01/2017 Orthopedic Saadia Cee, [...] primary osteoarthritis of knee S46.012D Strain of anthony/tend the rotator cuff of left shoulder, subs M25.461 Effusion, right knee M25.561 Pain in right knee Office Visit 12/11/2016 11:00a Orthopedic Juan R Hobbs, M25.512 Pain in left Services Of MD shoulder C.M.A. S46.012A Strain of anthony/tend the rotator cuff of left shoulder, init Office Visit 08/07/2016 1:45p [facility] Mayito Ruggiero I34.0 Nonrheumatic mitral Of [place] M.D. (valve) insufficiency I10 Essential (primary) hypertension Office Visit 02/25/2016 8:30a [facility] Reji Crenshaw G25.0 Essential tremor Neurologic [place] Services Of [facility] Office Visit 08/22/2015 9:45a Fartun Ruggiero I34.0 Nonrheumatic mitral Cardiology Dunia Maria M.D. (valve) Cash Management Officer insufficiency I10 Essential (primary) hypertension Office Visit 05/09/2015 Neurohospitalist Reji Crenshaw G25.0 Essential tremor 9:30a Clinic [place] Office Visit 01/31/2015 [place] Flor Ruggiero I34.0 Nonrheumatic 9:00a [place] Maria M.D. mitral (valve) insufficiency I10 Essential (primary) hypertension R94.31 Abnormal electrocardiogram [ECG] [EKG] Office Visit 08/03/2014 1:45p [facility] Mayito Ruggiero 424.0 Mitral Valve Of [place] M.D. Disorder Office Visit 05/03/2014 9:45a [place] Ruggiero 424.0 Mitral Valve Of [place] M.D. Disorder Office Visit 02/02/2014 12:45p Fartun Ruggiero 424.0 Mitral Valve Of [place] M.D. Disorder 785.2 Murmur Cardiac Undiagnosed Office Visit 01/05/2014 1:00p Fartun Ruggiero 785.2 Murmur Cardiac Of [facility] [place]ph[place] Maria Undiagnosed 424.0 Mitral Valve Disorder 401.9 Hypertension Unspec Office Visit 01/04/2014 2:45p Orthopedic Osmin Claudio0.4 Sprains & Strains Services Of M.D. Rotator Cuff C.M.A. (Capsule) Office Visit 12/26/2013 3:45p Alistair Crenshaw 333.1 Tremor Essential Neurologic [place] & Other Forms Services Of [facility] Office Visit 11/30/2013 11:15a Jonh Anand 840.4 Sprains & Strains Services Of M.D. Rotator Cuff C.M.A. (Capsule) Office Visit 08/31/2013 10:15a Jonh Anand 716.91 Arthropathy Services Of [place] Unspec Shoulder C.M.A. Region Office Visit 07/19/2013 3:00p Alistair Ramos.1 Tremor Essential Neurologic [place] & Other Forms Services Of [facility] Office Visit 03/09/2013 8:00a Osmin Gamino0.4 Sprains & Strains Services Of M.Bahman Rotator Cuff C.M.A. (Capsule) Office Visit 01/26/2013 1:30p Orthopedic Jennifer Osorio.4 Sprains & Strains Services Of M.D. Rotator Cuff C.M.A. (Capsule) Office Visit 01/04/2013 11:00a Alistair Ramos.1 Tremor Essential Neurologic [place] & Other Forms Services Of [facility] Office Visit 12/23/2012 1:45p Orthopedic Jennifer Osorio.4 Sprains & Strains Services Of M.DSam Rotator Cuff C.M.A. (Capsule) Office Visit 10/05/2012 1:30p Orthopedic Pedro Rodriguez.4 Sprains & Strains Services Of [place] Rotator Cuff C.M.ASam R.P.A.-C (Capsule) Office Visit 09/07/2012 10:00a Alistair Ramos.1 Tremor Essential Neurologic [place] & Other Forms Services Of [facility] 781.2 Gait Abnormality Office Visit 06/30/2012 2:15p Orthopedic Pedro Rodriguez.4 Sprains & Services Of [place], Strains Rotator C.M.A. R.P.A.-C Cuff (Capsule) Office Visit 06/10/2012 1:30p Orthopedic Pedro Solorio0.4 Sprains & Services Of [place], Strains Rotator C.M.A. R.P.A.-C Cuff (Capsule) 726.10 Bursae & Tendon Disorders Shoulder Region Unspec Office Visit 05/04/2012 1:30p Orthopedic Pedro Solorio0.4 Sprains & Services Of [place], Strains Rotator C.M.A. R.P.A.-C Cuff (Capsule) Office Visit 04/21/2012 4:00p Jonh Solorio0.4 Sprains & Services Of [place], Strains Rotator C.M.A. R.P.A.-C Cuff (Capsule) Office Visit 03/25/2011 8:00a Jonh Salmon, 354.0 Carpal Tunnel Services Of M.D. Syndrome C.M.A. Office Visit 07/02/2010 9:00a Jonh Solorio0.4 Sprains & Services Of [place], Strains Rotator C.M.A. R.P.A.-C Cuff (Capsule) Office Visit 06/05/2010 9:00a Jonh Salmon 840.4 Sprains & Services Of M.D. Strains Rotator C.M.A. Cuff (Capsule) Office Visit 04/24/2010 1:15p Jonh Salmon, 726.10 Bursae & Tendon Services Of M.D. Disorders C.M.ASam Shoulder Region Unspec Office Visit 04/03/2010 1:15p Jonh Salmon, 923.21 Contusion Wrist Services Of M.D. C.M.ASam 840.9 Sprains & Strains Shoulder & Upper Arm Unspec Office Visit 02/12/2010 2:00p Jonh Krueger6.5 Enthesopathy Of Services Of [place] Salmon Hip Region C.M.A. Office Visit 01/24/2010 11:00a Jonh Krueger6.2 Shoulder Region Services Of [place] Salmon Affections Other C.M.A. Not Elsewhere Class 716.10 Arthropathy Traumatic Site Unspec Office Visit 11/13/2009 3:00p Jonh Salmon 726.2 Shoulder Region Services Dunia Calderón Affections Other C.M.A. Not Elsewhere Class Plan of Treatment Future Appointment(s):04/28/2018 10:00 am - Saadia Cee M.D. at Orthopedic Services Of C.M.A.04/15/2018 10:00 am - Saadia Cee M.D. at Orthopedic [facility].04/13/2018 - Mayito Maria M.D.I34.0 Nonrheumatic mitral ( valve) insufficiencyFollow up:1 year as [id number] Encounter for preprocedural cardiovascular examination
[2018-04-28] MEDS ORDERED: Dexamethasone IV* 4 MG/ML 1 ML (4 MG) ONE (08:15)
[2018-04-28] MEDS ORDERED: Gabapentin CAP(*) 300 MG ONE (08:15)
[2018-04-28] MEDS ORDERED: celeCOXIB CAP* 100 MG ONE (08:15)
[2018-04-28] MEDS ORDERED: Famotidine IV* 10 MG/ML 2 ML (20 mg) ONE (08:16)
[2018-04-28] MEDS ORDERED: ceFAZolin 2 GM PREMIX in ORs 2 GM/50 ML BAG IVPB ONE (08:16)
[2018-04-28] MEDS ORDERED: Buffered Lidocaine 1% SYRIN* 1 ML/SYRINGE INTRADERM ONE (08:16)
[2018-04-28] MEDS ORDERED: Midazolam* 1 MG/ML 2 ML VIAL (2 MG) ONE (09:01)
[2018-04-28] MEDS ORDERED: ROPIVACAINE 5 MG/ML 30 ML BTL (0.5%) ONE ×2 (09:01→09:31)
[2018-04-28] MEDS ORDERED: fentaNYL* 50 MCG/ML 2 ML VIAL (100 MCG VIAL) ONE (09:01)
[2018-04-28] MEDS ORDERED: Bupivacaine 0.5% SDV PF* 30ML VIAL ONE (09:02)
[2018-04-28] MEDS ORDERED: Lidocaine 2% PF * 5 ML VIAL ONE (09:03)
[2018-04-28] MEDS ORDERED: Phenylephrine INJ* 10 MG/ML 1 ML VIAL (10 MG) ONE (10:53)
[2018-04-28] MEDS ORDERED: Acetaminophen IV 1GM/100ML * 10 MG/ML VIAL IVPB PRN (11:25)
[2018-04-28] MEDS ORDERED: fentaNYL* 50 MCG/ML 2 ML VIAL (100 MCG VIAL) IV PRN (11:25)
[2018-04-28] MEDS ORDERED: DiMENhydriNATE IV* 50 MG/ML VIAL IV PUSH PRN (11:25)
[2018-04-28] MEDS ORDERED: HYDROmorphone INJ1* 1 MG/ML SYRINGE IV PRN (11:25)
[2018-04-28] MEDS ORDERED: Naloxone* 0.4 MG/ML 1 ML VIAL IV PRN (11:25)
[2018-04-28] MEDS ORDERED: Morphine VIAL* 4 MG/ML VIAL (1 ml vial) IV PRN (12:33)
[2018-04-28] MEDS ORDERED: Magnesium Hydroxide LIQ* 30 ML UDC PO PRN ×2 (12:33→14:01)
[2018-04-28] MEDS ORDERED: Bisacodyl SUPP* 10 MG SUPP PR PRN (12:40)
[2018-04-28] MEDS ORDERED: Ondansetron INJ* 2 MG/ML VIAL IV PRN (12:40)
[2018-04-28] MEDS ORDERED: traMADol TAB* 50 MG PO PRN (12:40)
[2018-04-28] MEDS ORDERED: Cyclobenzaprine TAB* 10 MG PO PRN (12:40)
[2018-04-28] MEDS ORDERED: Polyethylene Glycol 3350* 17 GM PACKET PO PRN ×2 (12:40→14:01)
[2018-04-28] MEDS ORDERED: diPHENhydraMINE IV* 50 MG/ML 1 ml VIAL (BENADRYL) IV PRN (12:40)
[2018-04-28] MEDS ORDERED: Zolpidem TAB* 5 MG PO PRN (12:42)
[2018-04-28] MEDS ORDERED: oxyCODONE/Acetamin 5/325 MG* TAB PO PRN (12:44)
[2018-04-28] MEDS ORDERED: Lactated Ringers 1000 ML Bag* 1,000 ML IV SCH (13:00)
[2018-04-28] MEDS ORDERED: Senna TAB PO PRN (14:01)
--- NOTE | 2018-04-28 14:52 | PN ---
Progress Note - Progress Note Date of Service: 04/28/18 Note: resting comfortably in recovery. no complaints of pain; able to dorsi flex/ plantar flex, 2+ DP pulse and intact sensation
[2018-04-28] MEDS: Atorvastatin* 20 MG TAB PO SCH (17:15)
[2018-04-28] MEDS: oxyCODONE/Acetamin 5/325 MG* TAB PO PRN ×2 (17:16→22:00)
[2018-04-28] MEDS ORDERED: ceFAZolin 1 GM ADVAN(*) 1 GM in NS 0.9% 50 ML* 50 ML IVPB SCH (18:00)
[2018-04-28] MEDS: ceFAZolin 1 GM in Dextrose (*) 1 GM/50 ML BAG IVPB SCH (18:13)
[2018-04-28] MEDS: oxyCODONE TAB* 5 MG TAB PO PRN (19:23)
[2018-04-28] MEDS ORDERED: Primidone TAB(*) 50 MG PO SCH (21:00)
[2018-04-28] MEDS ORDERED: Docusate CAP* 100 MG PO SCH (21:00)
[2018-04-28] MEDS ORDERED: Magnesium Hydroxide LIQ* 30 ML UDC PO SCH (21:00)
--- NOTE | 2018-04-28 21:00 | CONS ---
CC: Dr. Jeff Desai; Dr. Nancy Morgan* CONSULTATION REPORT: DATE OF CONSULT: 04/28/18 PRIMARY CARE PROVIDER: Dr. Jeff Desai. MY ATTENDING WHILE IN THE HOSPITAL: Dr. Nancy Morgan. REASON FOR CONSULTATION: Comanagement of comorbid medical conditions. HISTORY OF PRESENT ILLNESS: Ms. Plascencia is an 87-year-old female with past medical history significant for hypertension, hyperlipidemia and moderate-to- severe mitral regurgitation with pulmonary hypertension, who is currently status post left total knee arthroplasty. The patient has moderate pain, which is responsive to Percocet. The patient's only complaint is intermittent diplopia , which she attributes to recent changes in her glasses prescriptions and is not persistent enough present at all during the interview. The patient denies chest pain, shortness of breath, dizziness, nausea, vomiting, fevers, chills, abdominal pain. The patient preoperatively had no recent changes in her meds, no recent illnesses, no sick contacts, no decrease in exercise tolerance, chest pain, shortness of breath, passing out. The patient did not take her lisinopril on the day of her surgery. The patient has no other complaints. PAST MEDICAL HISTORY: Hypertension, hyperlipidemia, [id number] mitral regurgitation, pulmonary hypertension, and essential tremor. PAST SURGICAL HISTORY: Right total knee arthroplasty, right shoulder replacement, right shoulder arthroscopy, hernia repair, cataract removal, carpal tunnel release, hammertoe surgery, bunionectomy. MEDICATIONS: 1. Fluoxetine 20 mg p.o. daily. 2. Primidone 100 mg in the morning and 150 mg p.o. at night. 3. Lisinopril 10 mg p.o. daily, did not take on the day of surgery. 4. Lipitor 10 mg p.o. daily. ALLERGIES: SULFA. FAMILY HISTORY: The patient's father of heart disease. The patient's mother of liver cancer. The patient has a sister who is alive and well at 96 and brother who of unknown type of cancer. SOCIAL HISTORY: The patient has never smoked. Drinks occasionally. 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 The patient has never used illicit drugs. The patient's surrogate decision maker will be her daughter, Sue Colbert or her other daughter, Anup Lovett. REVIEW OF SYSTEMS: A 14-point review of systems was reviewed and is negative except as above in the HPI. PHYSICAL EXAM: General: The patient is an 87-year-old female who appears much younger than her stated age and sitting comfortably in the bed, in no acute distress. Vital Signs: Temperature 98.2, pulse rate of 76, respiratory rate 20 , oxygen saturation 97% on room air, blood pressure 107/52. HEENT: Head: Normocephalic, atraumatic. Sclerae anicteric. No conjunctival injection. Nasal mucosa moist. Oral mucosa moist. No pharyngeal erythema, discharge, or exudate. Neck: Supple, nontender. No lymphadenopathy. No carotid bruit auscultated. No JVD. Cardiac: Regular rate and rhythm. No clicks, murmurs, gallops, or rubs. Pulses are 2+ in the dorsalis pedis, posterior tibialis, and radial areas. Respiratory: Clear to auscultation bilaterally. No wheezes, rales, or rhonchi. Good air exchange bilaterally. Abdomen: Soft, nontender, nondistended. Bowel sounds present and normoactive in all 4 quadrants. No hepatosplenomegaly. No abdominal bruits auscultated. No hepatojugular reflux. Genitourinary: No suprapubic or CVA tenderness. Skin: Clean, dry, and intact. No rashes. Left knee incision covered with bulky dressing. Neuro: Cranial nerves II through XII grossly intact. No focal deficits. Alert and oriented x3. Psychiatric: Pleasant and cooperative. DIAGNOSTIC STUDIES/LAB DATA: Preoperatively, white blood cell count 4.5, hemoglobin 12.7, hematocrit 38, MCV 97, platelet count 182. Sodium 146, potassium 4.8, chloride 102, carbon dioxide 25, glucose 82, BUN 29, creatinine 0.6, calcium 8.8. Protein 6.6, albumin 4.5, globulin 2.1. Alkaline phosphatase 58, ALT 21, AST 25, bilirubin 0.4. ASSESSMENT AND PLAN: Impression: Ms. Plascencia is an 87-year-old female with past medical history significant for hypertension, mitral regurgitation and hyperlipidemia, who is currently status post left total knee arthroplasty and is doing well. 1. Postoperative state management per Orthopedics with Lovenox, presumably was bridged to warfarin or Eliquis. The patient should have bowel regimen, pain control, have her Archibald removed as soon as possible after surgery, PT and OT and have her hemoglobin and hematocrit monitored. 2. Hypertension. We will hold the patient's lisinopril and since her blood pressure is borderline low, this will be resumed when indicated, to continue fluids until she is able to tolerate adequately by mouth. 3. Mitral valve regurgitation. The patient should monitor closely for increase in her blood pressure and lisinopril should be restarted. The patient should be well hydrated and avoid dehydration. 4. High cholesterol. Continue atorvastatin. 5. DVT prophylaxis as above. 6. Fluids, electrolytes, nutrition: The patient will have diet as tolerated and fluids until she is able to tolerate adequate fluids by mouth. 7. Disposition: Per Orthopedics. TIME SPENT: Approximately 45 minutes was spent on this consultation, 20 of which was spent [id number] with the patient, obtaining history and physical and discussing the treatment plan. Plan was discussed with my attending, Dr. Nancy Morgan, and she is in agreement. LING CHICAS [id number]/[facility] #: [id number] MTDIván
[2018-04-28] MEDS: Docusate CAP* 100 MG PO SCH (22:01)
[2018-04-28] MEDS: Magnesium Hydroxide LIQ* 30 ML UDC PO SCH (22:03)
--- NOTE | 2018-04-28 23:42 | OP ---
OPERATIVE NOTE: DATE OF OPERATION: 04/28/18 DATE OF : 32 ATTENDING SURGEON: Saadia Cee MD GRINDER AND PLATER: LING Curry Ms. Dowell did help throughout the procedure with preparation of the leg, wound retraction, manipulat ion of the knee, and wound closure. ANESTHESIOLOGIST: Dr. Barcenas. ANESTHESIA: Spinal. 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 POST-OP DIAGNOSIS: Severe endstage degenerative osteoarthritis of the left knee joint with valgus de formity. OPERATIVE PROCEDURE: Left total knee arthroplasty. TOURNIQUET TIME: 44 minutes. COMPLICATIONS: None. ESTIMATED BLOOD LOSS: 200 cc. SPECIMENS: Bone and cartilage from the left knee joint sent to Pathology. HARDWARE USED: This is cemented Calixto and Nephew total knee arthroplasty hardware. For the cement, 2 packages of Simplex bone cement. For the femur, a left size 4, narrow, posterior-stabilized Legion femoral component. For the tibia, a size 3, left Gisele II tibial baseplate. For the insert, a 9-m m posterior-stabilized articular insert size 3-4. For the patella, a 32 mm, 3-peg all-poly patella w ith 7.5 thickness. BRIEF HISTORY/INDICATIONS: Ms. Plascencia is an 87-year-old female with years of increasingly severe lef t knee pain and valgus deformity. Her radiographs showed [id number] arthritis. She failed conserv ative treatment with antiinflammatories, pain medication, intraarticular injections, and physical the rapy. Due to continued pain and decreased quality of life, she elected to undergo left total knee ar throplasty. Informed consent was obtained from the patient. She understood the risks of surgery inc luded, but were not limited to bleeding, infection, damage to nearby structures, continued pain, need for further surgery, intraoperative fracture, nerve palsy, hardware failure or loosening, knee stiff ness, loss of motion, stroke, heart attack, blood clot, and . She wished to proceed. INTRAOPERATIVE FINDINGS: Intraoperatively, the patient was noted to have preop valgus deformity of 1 5 degrees. She had full-thickness loss of cartilage in all 3 compartments. She was noted to have so me osteopenia. DESCRIPTION OF PROCEDURE: Ms. Plascencia was identified in the preanesthesia unit. Her left lower extrem ity was marked as the correct operative side. Informed consent was signed and placed in the chart. The patient was taken to the operating room and placed under spinal anesthesia. A Archibald catheter was placed. Tourniquet was placed on the left thigh. Left lower extremity was prepped and draped in th e usual sterile fashion. Preop time-out was made to correctly identify the patient, side and site. Appropriate perioperative antibiotics were given within 1 hour of incision. Tourniquet was inflated until the tourniquet time for this procedure was 44 minutes. Midline incisio n was made with a #10 blade. This was carried down to the extensor mechanism. A new 10-blade was us ed to make a standard medial parapatellar arthrotomy. Patella was subluxed laterally. Electrocauter y was used to subperiosteally elevate soft tissue off the superomedial tibia to the midsagittal plane . Osteophytes were carefully removed. The knee was flexed up. The anterior horn of the lateral men iscus and ACL were sharply released. A drill was used to enter the distal femur. Intramedullary dis alejandrina femoral cutting guide was pinned on the distal femur. Oscillating saw was used to make the dista l femoral cut. External rotation guide was pinned on the distal femur. The distal femur was sized to a size 4. Size 4 multi-cutting jig was pinned on the distal femur. Oscillating saw was used to jl e the appropriate 4 chamfer cuts. PCL was completely released. Extramedullary tibial cutting guide was pinned on the proximal tibia. Oscillating saw was used to make the proximal tibial cut perpendicular to the mechanical axis of the tibia. The bone was carefully removed. The knee was brought out into full extension. Spacer block h ad good fit with the knee in full extension. Medial and lateral ligaments were well balanced. Flexi on and extension gaps were well balanced. The knee was flexed up. Lamina mfts was placed both m edially and laterally. Any remaining meniscus was carefully removed using electrocautery. Curved os teotome was used to remove any posterior osteophytes. Tibial tray and drop karyn were placed and once again confirmed the satisfactory tibial cut. A size 4 narrow left femoral trial was impacted on to t he distal femur. This had excellent fit and stability. The box for the posterior- stabilized implan t was prepared using a reamer and box-cut osteotome. A size 3 tibial tray trial with a 9-mm insert t rial was placed and the knee was taken through a range of motion. The knee had full extension to 130 degrees of flexion with satisfactory patellofemoral tracking. Patella was everted. A 7 mm of bansal lar bone and cartilage was carefully removed using an oscillating saw. The patella was sized to a si ze 32. Three-peg holes were drilled through the size 32 guide. A 32 trial patella with 7.5 thicknes s was placed and the knee was taken through a range of motion. There was satisfactory patellofemoral tracking. All trials were carefully removed. The tibia was subluxed anteriorly and sized to a size 3. Proximal tibia was prepared using a size 3 keel punch. All bony cut surfaces were copiously irr igated with sterile saline and dried. Final implants were cemented into place starting with the tibi a followed by the femur and last the patella. A 9-mm insert trial was placed and the knee was mary t out into full extension. Tourniquet was turned down at 44 minutes. The knee was copiously irrigated with sterile saline. Vanessa ctrocautery was used to obtain meticulous hemostasis. Once the cement had fully cured, the insert tr ial was removed. Any excess cement was removed from around the capsule and hardware. Final insert c nicolas was a 9-mm posterior-stabilized articular insert size 3-4. This was locked into position on th e tibial tray without difficulty. Stability of the insert was checked and rechecked and noted to be stable. The extensor mechanism was closed using interrupted #1 Vicryl. The rest of the incision was closed in a layered fashion using 0 and 2-0 Vicryls. Skin was closed using running 3-0 nylon suture . Sterile Xeroform, 4x4s, and Webril were used to cover the incision. Raphael wrap and cold pack were p laced over this. The patient's anesthesia was reversed without difficulty. She was taken to the PACU in stable condition. Intended weightbearing will be weightbearing as tolerated. Intended DVT proph ylaxis will be Eliquis. [id number]/[facility] #: [id number]
[2018-04-29] MEDS: oxyCODONE TAB* 5 MG TAB PO PRN ×4 (00:18→14:46)
[2018-04-29] MEDS: Acetaminophen TAB* 325 MG PO SCH ×3 (00:34→13:45)
[2018-04-29] MEDS: oxyCODONE/Acetamin 5/325 MG* TAB PO PRN ×4 (02:05→17:25)
[2018-04-29] MEDS: ceFAZolin 1 GM in Dextrose (*) 1 GM/50 ML BAG IVPB SCH ×2 (02:07→10:24)
[2018-04-29 07:34] LABS: Hematocrit 28 % (35-47); Hemoglobin 9.3 g/dl (12.0-16.0); Mean Platelet Volume 8.8 fL (7.4-10.4); Platelet Count 126 10^3/ul (150-450)
[2018-04-29 08:15] LABS: BUN/Creatinine Ratio 22.2 (8-20); Calcium 8.3 mg/dL (8.6-10.3); EGFR African American 129.5 (>60); Potassium 3.6 mmol/L (3.5-5.0)
[2018-04-29] MEDS: FLUoxetine CAP* 20 MG PO SCH (08:38)
[2018-04-29] MEDS: Primidone TAB(*) 50 MG PO SCH (08:38)
[2018-04-29] MEDS: Docusate CAP* 100 MG PO SCH ×2 (08:38→22:15)
[2018-04-29] MEDS: Enoxaparin(*) 40 MG/0.4 ML SYR SUBCUT SCH (08:39)
[2018-04-29] MEDS: Magnesium Hydroxide LIQ* 30 ML UDC PO SCH ×2 (08:39→22:14)
[2018-04-29] MEDS ORDERED: Apixaban* 2.5 MG TAB PO SCH (09:00)
[2018-04-29] MEDS ORDERED: Lisinopril TAB* 10 MG PO SCH (09:00)
--- NOTE | 2018-04-29 11:45 | PN ---
Progress Note - Progress Note Date of Service: 04/29/18 SOAP: Subjective: []Patient seen at bedside. She is doing well. No complaints of SOB, CP, palpitations or dizziness. Pain well managed. Objective: [] Vital Signs Temp 98.4 F 04/29/18 07:46 Pulse 66 04/29/18 07:46 Resp 18 04/29/18 11:27 BP 98/52 04/29/18 07:46 Pulse Ox 97 04/29/18 08:00 Intake & Output 04/28/18 04/29/18 04/29/18 18:59 06:59 18:59 Intake Total 1000 2156 Output Total 850 850 100 Balance 150 1306 -100 Weight 112 lb 6.4 oz Intake: IV Fluids 1000 1036 ABX - CEFAZOLIN 50 LR 1000 986 Oral 1120 Output: Urine 200 100 Archibald 850 650 Other: # Bowel Movements 0 Laboratory Results - last 24 hr 04/29/18 04/29/18 07:09 07:09 Hgb 9.3 L Hct 28 L Plt Count 126 L MPV 8.8 Sodium 137 Potassium 3.6 Chloride 103 Carbon Dioxide 28 Anion Gap 6 BUN 12 Creatinine 0.54 Est GFR ( Amer) 129.5 Est GFR (Non-Af Amer) 107.0 BUN/Creatinine Ratio 22.2 H Glucose 89 Calcium 8.3 L Left knee dressings are dry and intact calf NT and soft +DF left ankle sensation and circulation intact Assessment: []s/p Left total knee arthoplasty POD #1 Plan: []PT/OT WBAT LLE Lovenox 40 mg daily x 1 month post op Possible discharge to home 04/30
[2018-04-29] MEDS: Atorvastatin* 20 MG TAB PO SCH (17:25)
[2018-04-29] MEDS ORDERED: Primidone TAB(*) 50 MG PO SCH (21:00)
--- NOTE | 2018-04-29 22:18 | PN ---
Subjective Date of Service: 04/29/18 Interval History: C/o left knee pain, tolerable. Denies chest pain or shortness of breath . denies abd pain n/v/d. denies fever or chills Family History: Unchanged from Admission Social History: Unchanged from Admission Past Medical History: Unchanged from Admission Objective Active Medications: Acetaminophen (Tylenol Tab*) 975 mg PO Q8H [facility] Last Admin: 04/29/18 13:45 Dose: Not Given Atorvastatin Calcium (Lipitor*) 20 mg PO 1700 [facility] Last Admin: 04/29/18 17:25 Dose: 20 mg Bisacodyl (Dulcolax Supp*) 10 mg MN DAILY PRN PRN Reason: constipation Cyclobenzaprine HCl (Flexeril Tab*) 5 mg PO TID PRN PRN Reason: SPASMS Last Admin: 04/29/18 14:46 Dose: 5 mg Diphenhydramine HCl (Benadryl Iv*) 25 mg IV Q6H PRN PRN Reason: itching Docusate Sodium (Colace Cap*) 100 mg PO BID [facility] Last Admin: 04/29/18 08:38 Dose: 100 mg Enoxaparin Sodium (Lovenox(*)) 40 mg SUBCUT Q24H [facility] Last Admin: 04/29/18 08:39 Dose: 40 mg Fluoxetine HCl (Prozac Cap*) 40 mg PO QAM [facility] Last Admin: 04/29/18 08:38 Dose: 40 mg Lactated Ringer's (Lactated Ringers 1000 Ml Bag*) 1,000 mls @ 100 mls/hr IV PER RATE [facility] Last Admin: 04/28/18 17:15 Dose: 100 mls/hr Lactulose (Lactulose*) 30 ml PO Q6H PRN PRN Reason: constipation Magnesium Hydroxide (Milk Of Magnesia Liq*) 30 ml PO BID [facility] Last Admin: 04/29/18 08:39 Dose: 30 ml Magnesium Hydroxide (Milk Of Magnesia Liq*) 30 ml PO Q6H PRN PRN Reason: constipation Morphine Sulfate (Morphine Vial*) 2 mg IV Q2H PRN PRN Reason: PAIN Ondansetron HCl (Zofran Inj*) 4 mg IV Q6H PRN PRN Reason: nausea Last Admin: 04/29/18 10:23 Dose: 4 mg Oxycodone HCl (Roxycodone Tab*) 10 mg PO Q4H PRN PRN Reason: breakthru pain Last Admin: 04/29/18 14:46 Dose: 10 mg Oxycodone/Acetaminophen (Percocet 5/325 Tab*) 1 tab PO Q3H PRN PRN Reason: PAIN - MODERATE Oxycodone/Acetaminophen (Percocet 5/325 Tab*) 2 tab PO Q6H PRN PRN Reason: PAIN - MODERATE Last Admin: 04/29/18 17:25 Dose: 2 tab Polyethylene Glycol/Electrolytes (Miralax*) 17 gm PO DAILY PRN PRN Reason: Constipation Primidone (Mysoline Tab(*)) 100 mg PO QAM DAVID Last Admin: 04/29/18 08:38 Dose: 100 mg Primidone (Mysoline Tab(*)) 150 mg PO BEDTIME DAVID Senna (Senokot Tab*) 1 tab PO BEDTIME PRN PRN Reason: CONSTIPATION Tramadol HCl (Ultram*) 50 mg PO Q6H PRN PRN Reason: PAIN Vital Signs - 8 hr 04/29/18 04/29/18 04/29/18 14:46 15:59 16:00 Temperature 98.9 F Pulse Rate 72 Respiratory 18 20 Rate Blood Pressure 137/62 (mmHg) O2 Sat by Pulse 97 97 Oximetry 04/29/18 04/29/18 16:47 17:25 Temperature Pulse Rate Respiratory 18 18 Rate Blood Pressure (mmHg) O2 Sat by Pulse Oximetry Oxygen Devices in Use Now: None Appearance: alert and oriented sitting in the bed, no acute distress Eyes: No Scleral Icterus Ears/Nose/Mouth/Throat: Clear Oropharnyx, Mucous Membranes Moist Neck: NL Appearance and Movements; NL JVP, Trachea Midline Respiratory: Symmetrical Chest Expansion and Respiratory Effort, Clear to Auscultation Cardiovascular: NL Sounds; No Murmurs; No JVD Abdominal: NL Sounds; No Tenderness; No Distention Extremities: No Edema, No Clubbing, Cyanosis, - - dressing dry and intact to left knee Skin: No Rash or Ulcers Neurological: Alert and Oriented x 3 Nutrition: Taking PO's Result Diagrams: 04/29/18 07:09 04/29/18 07:09 Assess/Plan/Problems-Billing Assessment: Ms. Plascencia is a 87 y.o female with a pmhx of htn who presented for elective left TKA - Patient Problems (1) Status post total left knee replacement Current Visit: Yes Status: Acute Code(s): Z96.652 - PRESENCE OF LEFT ARTIFICIAL KNEE JOINT SNOMED Code(s): 5493531623271 Comment: management per orthopedics pt/ot per orthopedics pain management per orthopedics (2) HTN (hypertension) Current Visit: No Status: Chronic Code(s): I10 - ESSENTIAL (PRIMARY) HYPERTENSION SNOMED Code(s): 05819843 Comment: - SBP 98-137 - hold lisinopril (3) Hyperlipidemia Current Visit: No Status: Chronic Code(s): E78.5 - HYPERLIPIDEMIA, UNSPECIFIED SNOMED Code(s): 09087332 Comment: - Continue lipitor (4) DVT prophylaxis Current Visit: No Status: Acute Code(s): KAH1710 - SNOMED Code(s): 845491923 Comment: - Coumadin as per orthopedics (5) Full code status Current Visit: No Status: Acute Code(s): Z78.9 - OTHER SPECIFIED HEALTH STATUS SNOMED Code(s): 032003485 Status and Disposition: disposition per ortho
[2018-04-30] MEDS: Acetaminophen TAB* 325 MG PO SCH ×2 (01:58→07:29)
[2018-04-30 06:23] LABS: Hematocrit 28 % (35-47); Hemoglobin 9.5 g/dl (12.0-16.0); Mean Platelet Volume 8.9 fL (7.4-10.4); Platelet Count 140 10^3/ul (150-450)
[2018-04-30] MEDS: oxyCODONE TAB* 5 MG TAB PO PRN (06:49)
[2018-04-30] MEDS: Magnesium Hydroxide LIQ* 30 ML UDC PO SCH (08:31)
[2018-04-30] MEDS: FLUoxetine CAP* 20 MG PO SCH (08:31)
[2018-04-30] MEDS: Primidone TAB(*) 50 MG PO SCH (08:31)
[2018-04-30] MEDS: Docusate CAP* 100 MG PO SCH (08:31)
[2018-04-30] MEDS: Enoxaparin(*) 40 MG/0.4 ML SYR SUBCUT SCH (08:31)
--- NOTE | 2018-04-30 10:00 | PN ---
Progress Note - Progress Note Date of Service: 04/30/18 SOAP: Subjective: [Pt doing well. L knee pain managed with Percocet. Denies dizziness, CP, SOB. Feels ready to go home.] Objective: [A and O x 3, NAD Seated in chair L knee dressing changed, wound benign. No drainage or erythema. Mild/mod swelling in calf just distal to post op isabelle wrap - looks like wrap pushed swelling distally. Calf soft, NT Distal gross motor and NV function intact. Vital Signs: Temp Pulse Resp BP Pulse Ox 98.0 F 80 18 125/62 99 04/30/18 07:31 04/30/18 07:31 04/30/18 07:52 04/30/18 07:31 04/30/18 07:52 Laboratory Results - last 24 hr 04/30/18 06:02 Hgb 9.5 L Hct 28 L Plt Count 140 L MPV 8.9 ] Assessment: [s/p L TKA POD #2] Plan: [PT/OT Lovenox 40 mg daily for 1 month Percocet for pain D/C home with services f/u with Dr. Cee 2 weeks]
[2018-04-30] MEDS: oxyCODONE/Acetamin 5/325 MG* TAB PO PRN (12:13)
[2018-04-30 13:53] VITALS: BP 138/72
--- NOTE | 2018-05-02 10:54 | DS ---
AMENDED REPORT NOW INCLUDES DESIGNATED COSIGNER DISCHARGE SUMMARY: DATE OF ADMISSION: 04/28/18 DATE OF DISCHARGE: 04/30/18 PROVIDER: Saadia Cee MD. ADMITTING PHYSICIAN: Dr. Cee.* (DICTATED BY LING TUCKER) ADMITTING DIAGNOSES: 1. Left knee osteoarthritis. 2. Hypertension. 3. High cholesterol. 4. Mitral valve disorder. 5. Essential tremor. DISCHARGE DIAGNOSES: 1. Status post left total knee arthroplasty. 2. Hypertension. 3. High cholesterol. 4. Mitral valve disorder. 5. Essential tremor. PROCEDURE: Left total knee arthroplasty. CONSULTANTS: Physical Therapy, Occupational Therapy, and Medicine. BRIEF HISTORY: Ms. Plascencia is an 87-year-old female with severe degenerative osteoarthritis of the left knee. She failed conservative treatment measures and elected to undergo a left total knee arthroplasty on 04/28/[address] Cee. HOSPITAL COURSE: Ms. Plascencia was admitted to [facility] on 04/28/18. She underwent an uncomplicated left total knee arthroplasty. Postoperatively, she recovered on the short-stay surgical unit. A Archibald catheter was removed postoperative day #1 and she was able to urinate on her own. She advanced to a regular diet without difficulty. Her pain was well controlled with Percocet and Lovenox 40 mg daily was used for DVT prophylaxis. She was able to bear weight as tolerated on the left lower extremity and she advanced appropriately with physical therapy and occupational therapy. By postoperative day #2, she was orthopedically and medically stable for discharge home with services. PHYSICAL EXAMINATION: General: On examination, the patient is noted to be calm and cooperative, in no acute distress. She is alert and oriented x3. Vital signs: On day of discharge, temperature 98.0 degrees Fahrenheit, pulse rate 80, respiratory rate 14, O2 sat on room air 99%, blood pressure 125/62. Examination of the left lower extremity demonstrates the surgical wound to be benign. No drainage or erythema. Overlying dressing is clean, dry, and intact. Calf is soft and nontender. Distal gross motor neurovascular function intact. LABORATORY DATA: On day of discharge, hemoglobin 9.5, hematocrit 28. RADIOGRAPHIC DATA: Postoperative radiographs of the left knee demonstrate a left total knee arthroplasty with satisfactory prosthesis placement and no acute bony abnormalities. DISCHARGE MEDICATIONS: 1. Fluoxetine 20 mg a day. 2. Primidone 50 mg 2 in the morning and 3 at night before bed. 3. Lisinopril 10 mg daily. 4. Atorvastatin and calcium 20 mg q.h.s. 5. Zolpidem tartrate 5 mg p.r.n. 6. Lovenox 40 mg daily for 1 month postoperatively. 7. Percocet 5/325 one to two tabs p.o. q.4 to 6 hours p.r.n. pain. 8. Colace 100 mg p.o. t.i.d. p.r.n. constipation. CONDITION ON DISCHARGE: Stable. DISCHARGE INSTRUCTIONS: Ms. Plascencia is an 87-year-old female, postoperative day #2, status post left total knee arthroplasty which was uncomplicated. She is orthopedically and medically stable to be discharged home with services. She has stable vital signs and labs. She will continue with Lovenox 40 mg daily for DVT prophylaxis and use Percocet for pain management. She will remain weightbearing as tolerated on the left lower extremity and have home physical therapy twice a day. She will follow up in the office with Dr. Cee in 10 to 14 days postoperatively for incision check and suture removal. She was instructed to call Dr. Cee or go immediately to the ER should she develop any new fever, chills, incision pain, redness, or drainage, and she was instructed to go immediately to the ER should she develop chest pain or shortness of breath. LING TUCKER [id number]/[facility] #: [id number] MARCY
== END 2018-04-30 12:50 | disposition home health service (06) | DRG 470 ==
LOC: AA 07:23 → SSU 16:11
PROVIDERS: ADMIT Orthopaedic Surgery Adult Reconstructive Orthopaedic Surgery; ATTEND Orthopaedic Surgery Adult Reconstructive Orthopaedic Surgery
PROC: 0SRD0J9 Replacement of Left Knee Joint with Synthetic Substitute, Cemented, Open Approach (ICD-10-PCS; principal; 2018-04-28 10:15)
DX: M17.12 Unilateral primary osteoarthritis, left knee (principal); I10 Essential (primary) hypertension; E78.00 Pure hypercholesterolemia, unspecified; M21.062 Valgus deformity, not elsewhere classified, left knee; M85.862 Other specified disorders of bone density and structure, left lower leg; M25.762 Osteophyte, left knee; G25.0 Essential tremor; F32.9 Major depressive disorder, single episode, unspecified; E78.2 Mixed hyperlipidemia; K58.9 Irritable bowel syndrome, unspecified; I08.3 Combined rheumatic disorders of mitral, aortic and tricuspid valves; I27.20 Pulmonary hypertension, unspecified; Z96.651 Presence of right artificial knee joint; Z96.611 Presence of right artificial shoulder joint; Z98.49 Cataract extraction status, unspecified eye; Z88.2 Allergy status to sulfonamides; Z82.49 Family history of ischemic heart disease and other diseases of the circulatory system; Z80.0 Family history of malignant neoplasm of digestive organs; Z72.89 Other problems related to lifestyle
CPT/HCPCS: 36415; 80048; 85014; 85018; 85049; A9270-GY; C1776; G8978-GP-CJ; G8979-GP-CI; G8987-GO-CJ; G8988-GO-CI; J0690; J1100; J1650; J2250; J2405; J2795; J3010

== ENCOUNTER 2018-07-02 08:51 | Inpatient (IN) | payer MEDICARE, BC ==
--- OUTSIDE RECORDS SUMMARY | 2018-07-02 09:28 | XMS REPORT | Continuity of Care Document ---
:1930 External Reference #:[id number] Author Name DavionMichelle crystal Care Team Providers Name Role Phone Jeff Desai MD Primary Care Physician Unavailable Payers Date Identification Numbers Payment Provider Subscriber Effective: 1996 Policy Number: [id number] Medicare Nitin Plascencia Expires: 2018 PayID: [id number] [address] [place] [address] Policy Number: [id number] Medicare Nitin Plascencia PayID: [id number] [address] [place] [address] Effective: 2012 Policy Number: [id number] [facility] Nitin Plascencia PayID: [id number] [address] [address] [place] [address] Advance Directives Description No Information Available Problems Active Problems Provider Date Essential tremor Reji [place] M.D. Onset: 12/26/2013 Mitral valve disorder Mayito Maria M.D. Onset: 01/31/2015 Sprain of shoulder and upper arm Juan R Hobbs MD Onset: 01/07/2017 Localized, primary osteoarthritis Juan R Hobbs MD Onset: 01/07/2017 Acquired genu parism Saadia Cee M.D. Onset: 03/05/2017 Family History Date Family Member(s) Observation Comments General cancer General heart disease General Hypertension Social History Type Date Description Comments Sex Unknown Marital Status Lives With Spouse Occupation retired Tobacco Use Start: Unknown Never Smoked Cigarettes Smoking Status Reviewed: 06/10/18 Never Smoked Cigarettes ETOH Use Consumes 1 glass of wine per day Tobacco Use Start: Unknown Patient has never smoked Recreational Drug Use Denies Drug Use Exercise Type/Frequency Exercises regularly Allergies, Adverse Reactions, Alerts Active Allergies Reaction Severity Comments Date Sulfa Antibiotics rash 09/07/2012 Medications Active Medications SIG Qnty Indications Ordering Provider Date Keflex 1 by mouth 4 28caps Saadia Cee, 05/11/2018 500mg Capsules times a day for M.D. 7 days Fluoxetine 1 po qd (pt 90caps Concetta ClaudioDSam 03/09/2013 20mg takes 40mg Capsules daily) Primidone 2 by mouth every 150tabs Reji [place], 01/04/2013 50mg Tablets morning and 3 M.D. every night at bedtime Lisinopril 1 po qd Unknown 10mg Tablets Atorvastatin Calcium take 1 tablet at Unknown bedtime 20mg Tablets Zolpidem Tartrate 1 tab as needed Unknown 5mg Tylenol 2 tabs by mouth Unknown 500mg Tablets every 4 hours as needed History Medications Percocet 1 -2 tabs by mouth 60tabs Saadia Cee, 04/30/2018 - 5-325mg Tablets every 4-6 hours as M.D. 05/10/2018 needed pain Lovenox inject sq once daily 30units Saadia Cee, 04/30/2018 - 40mg/0.4ML for 30 days M.D. 06/09/2018 Solution Colace 1 tab every 12 hours 90caps Saadia Cee, 05/06/2017 - 100mg Capsules as needed for M.D. 06/17/2017 constipation Coumadin 1-3 tabs daily dose 90tabs Saadia Cee, 05/06/2017 - 2mg Tablets per inr draws M.D. 06/17/2017 Percocet 1-2 tabs every 4-6 70tabs Saadia Cee, 05/06/2017 - 5-325mg Tablets hours as needed for M.D. 06/21/2017 pain. max of 10 tabs per day Walker front wheeled walker 1units Saadia Cee, 04/21/2017 - Misc s/p right total M.D. 06/09/2018 knee replacement Shower Bench Shower bench s/p 1units Saadia Coleman, 04/21/2017 - right TKA M.D. 03/27/2018 Colace 1 capsule by mouth 60caps Elia Anand, 05/17/2013 - 100mg Capsules twice a day as M.D. 06/22/2013 needed constipation from narcotic use Mobic 1 po qd prn 90tabs Ted Salmon, 12/23/2012 - 7.5mg Tablets M.D. 03/09/2013 Ultram 1-2 po bid prn, take 80tabs Ted Salmon, 12/23/2012 - 50mg Tablets tab with one ES M.D. 01/04/2013 Tylenol Calcium 1000 + D 3 po qd Unknown - 11/01/2014 [id number] Tablets Aspirin 1 po qd Unknown - 81mg Tablets DR 12/23/2013 Citalopram 1 po qd Unknown - Hydrobromide 01/04/2013 20mg Tablets Acetaminophen take 2 tablets by Unknown - 500mg mouth every 8 hours 08/02/2014 Tablets as needed for pain Zolpidem Tartrate 1 tab at bedtime as Unknown - 5mg needed for sleep 02/24/2016 Tablets Gabapentin 1 po tid 90caps Unknown - 300mg Capsules 06/22/2013 Sertraline HCL 1 po qd Unknown - 25mg 03/09/2013 Tablets Meloxicam 1 by mouth every day 30tabs Unknown - 7.5mg Tablets as needed 12/23/2013 Tylenol Extra Strength as needed 100tabs Unknown - 06/17/2017 500mg Tablets Aleve 1 tab as needed Unknown - 06/19/1967 Aspirin take 1 by mouth Unknown - 325mg Tablets twice a day 03/08/2018 Aleve as needed Unknown - 220mg 03/27/2018 Medications Administered in Office Medication SIG Qnty Indications Ordering Provider Date Triamcinolone (Kenalog) Juan R Hobbs MD 06/22/2017 Injection Depomedrol 40MG Saadia Cee M.D. 03/05/2017 Injection Triamcinolone (Kenalog) Juan R Hobbs MD 01/07/2017 Injection Triamcinolone (Kenalog) Lashawn Burk PA-C 12/11/2016 Injection Depomedrol 80MG Ted Salmon M.D. 12/23/2012 Injection Depomedrol 80MG Pedro Melissa, 10/05/2012 Injection RPA-C Depomedrol 80MG Pedro Melissa, 05/04/2012 Injection RPA-C Depomedrol 80MG Pedro Melissa, 05/04/2012 Injection RPA-C Depomedrol 80MG Ted Salmon M.D. 04/24/2010 Injection Depomedrol 80MG Ted Salmon M.D. 02/12/2010 Injection Immunizations Description No Information Available Vital Signs Date Vital Result Comment 06/10/2018 11:35am Height 60 inches 5'0" Weight 110.75 lb Heart Rate 64 /min BP Systolic 122 mmHg BP Diastolic 74 mmHg Respiratory Rate 14 /min Pain Level 0 BMI (Body Mass Index) 21.6 kg/m2 05/11/2018 11:06am Height 60 inches 5'0" Weight 109.00 lb BP Systolic 120 mmHg BP Diastolic 60 mmHg Body Temperature 98.5 F Pain Level 4 BMI (Body Mass Index) 21.3 kg/m2 04/15/2018 10:22am Height 60 inches 5'0" Weight [...] Date Facility Test Result H/L Range Note Urinalysis Profile 04/15/2018 [facility] Urine Color Yellow [address] [place] [address] [phone] Urine Appearance Clear Urine Specific [place] 1.016 N 1.010-1.030 Urine pH 7.0 N 5-9 Urine Urobilinogen Negative Negative Urine Ketones Negative Negative Urine Protein Negative Negative Urine Leukocytes Negative Negative Urine Blood Negative Negative Urine Nitrite Negative Negative Urine Bilirubin Negative Negative Urine Glucose Negative Negative Inr/Protime 04/15/2018 [facility] Inr 0.94 N 0.77-1.[address] [place] [address] [phone] Laboratory test 04/15/2018 [facility] Partial 27.8 seconds N 26.0-36.[address] [place] [address] PTT [phone] Type & Screen 04/15/2018 [facility] Patient A Positive [address] Blood Type [place], [place] [id number] [phone] Antibody Screen NEGATIVE Urine Culture And 04/15/2018 [facility] Urine Culture SEE RESULT [address] [place] [address] [phone] CBC Auto Diff 05/10/2017 [facility] White Blood 7.5 10^3/uL N 3.5-[address] Count .8 [place] [address] [phone] Red Blood Count 2.50 10^6/uL Low 4.0-5.4 [...] Red Blood Cells % 0.1 Inr/Protime 04/21/2017 [facility] Inr 0.94 N 0.77-1.[address] [place] [address] [phone] Laboratory test 04/21/2017 [facility] Partial 30.5 seconds N 26.0-36.[address] [place] [address] PTT [phone] Type & Screen 04/21/2017 [facility] Patient A Positive [address] [place] [address] [phone] Antibody Screen NEGATIVE Inr/Protime 01/26/2014 [facility] Inr 0.92 N 0.85-1.[address] [place] [address] [phone] CBC Auto Diff 01/26/2014 [facility] White Blood 5.9 10^3/uL N 4.8-10.[address] [place] [address] [phone] Red Blood Count 3.89 10^6/uL Low 4.0-5.4 [...] Nucleated Red Blood Cells % 0.1 N Basic Metabolic Panel 01/26/2014 [facility] Sodium 139 mmol/L N 133-[address] [place] [address] [phone] Potassium 3.8 mmol/L N 3.5-5.0 Chloride 102 mmol/L N 101-111 Co2 Carbon Dioxide 29 mmol/L N 22-32 Anion Gap 8 mmol/L N 2-11 Glucose 75 mg/dL N 70-100 Blood Urea Nitrogen 14 mg/dL N 6-24 Creatinine 0.60 mg/dL N 0.51-0.95 BUN/Creatinine Ratio 23.3 High 8-20 Calcium 9.7 mg/dL N 8.6-10.3 Egfr Non- 95.7 N >60 Egfr 123.1 N >60 4 Pre Cath 01/26/2014 [facility] Activated 29.5 seconds N 24.0- 36.[address] [place] [address] Time [phone] Type & 05/17/2013 [facility] Patient Blood A Positive N [address] [place] [address] [phone] Antibody Screen NEGATIVE N Urinalysis 04/18/2013 [facility] Urine Color Yellow [address] [place] [address] [phone] Urine Appearance Clear Urine Specific [place] 1.010 1.010-1.030 Urine Esterase Negative Negative Urine Nitrate Negative Negative Urine Urobilinogen Negative E.U./dL Negative Urine Protein Negative mg/dL Negative Urine pH 7.5 5-9 Urine Blood Negative Negative Urine Ketones Negative mg/dL Negative Urine Bilirubin Negative Negative Urine Glucose Negative mg/dL Negative Basic Metabolic Panel 04/18/2013 [facility] Sodium 139 mmol/L 133-145 [address] [place] [address] [phone] Potassium 3.9 mmol/L 3.7-5.6 Chloride 103 mmol/L 101-111 Co2 Carbon Dioxide 30 mmol/L 22-32 Anion Gap 6 mmol/L 2-11 Glucose 82 mg/dL 70-100 Blood Urea Nitrogen 13 mg/dL 6-24 Creatinine 0.73 mg/dL 0.51-0.95 BUN/Creatinine Ratio 17.8 8-20 Calcium 9.9 mg/dL 8.6-10.3 Egfr Non- 76.5 >60 Egfr 98.4 >60 6 Laboratory test 04/18/2013 [facility] Activated 31.1 seconds 24.0-36.[address] [place] [address] Thrombo Time [phone] Inr/Protime 04/18/2013 [facility] Inr 0.97 0.85-1.[address] [place] [address] [phone] CBC No Diff 04/18/2013 [facility] White Blood 5.5 10^3/uL 4.8 -10.[address] Count [place], [place] [id number] [phone] Red Blood Count 4.02 10^6/uL 4.0-5.4 Hemoglobin 12.5 g/dL 12.0-16.0 Hematocrit 37 % 35-47 Mean Corpuscular Volume 92 fL 80-97 Mean Corpuscular Hemoglobin 31 pg 27-31 Mean Corpuscular HGB Conc 34 g/dL 31-36 Red Cell Distribution Width 14 % 10.5-15 Platelet Count 185 10^3/uL 150-450 Mean Platelet Volume 9 um3 7.4-10.4 1 SEE RESULT BELOW Name: NITIN PLASCENCIA : [address]: Saadia Cee MD Acct: [id number] Unit: [id number] AGE: 87 Location: [facility] Re04/15/18 SEX: F Status: REG REF SPEC: [id number] SHALOM: 04/15/18-[address] [facility] [address]: Saadia Cee MD REQ: [id number] RECD: 04/15/18 STATUS: NEHA ISIDRO DR: Jeff Desai MD _ SOURCE: URINE SPDESC: ORDERED: Urine Culture QUERIES: Urine Source: Clean Catch Procedure Result Reported Site Urine Culture Final 04/16/18- 1210 ML No growth of clinically significant organisms * ML - Main Lab . END OF REPORT DEPARTMENT OF PATHOLOGY, [address] [place] [address] Sixto Kelley M.D. Director [facility] # [id number] 2 [id number] PAIN IN RIGHT KNEE, BILATERAL PRIMARY OSTEOARTHRIT 4 Because ethnic data is not always readily [...] 15-29 5 Kidney failure <15 (or dialysis) 5 RIGHT SHOULDER ROTATOR CUFF TEAR 6 Because ethnic data is not always readily [...] (or dialysis) Procedures Date Code Description Status 04/28/2018 94977 TKR Total Knee Replacement Completed 04/28/2018 76709 TKR Total Knee Replacement Completed 04/13/2018 07848 EKG Tracing & Interpretation Completed 03/17/2018 48127 ECHO Transthoracic, Real-Time 2D With Doppler And Color Completed Flow 03/17/2018 53205 ECHO Transthoracic, Real-Time 2D With Doppler And Color Completed Flow 03/09/2018 97865 EKG Tracing & Interpretation Completed 06/22/2017 97827 Inject/Drain Joint/Bursa Major W/O US Completed 05/04/2017 18602 TKR Total Knee Replacement Completed 05/04/2017 79676 TKR Total Knee Replacement Completed 05/04/2017 32640 TKR Total Knee Replacement Completed 05/04/2017 98045 TKR Total Knee Replacement Completed 03/05/2017 08224 Inject/Drain Joint/Bursa Major W/O US Completed 03/03/2017 08149 EKG Tracing & Interpretation Completed 01/07/2017 19197 Inject/Drain Joint/Bursa Major W/O US Completed 12/11/2016 41745 Inject/Drain Joint/Bursa Major W/O US Completed 09/07/2016 94197 ECHO Transthoracic, Real-Time 2D With Doppler And Color Completed Flow 08/07/2016 35034 EKG Tracing & Interpretation Completed 09/13/2015 25791 ECHO Transthoracic, Real-Time 2D With Doppler And Color Completed Flow 04/30/2015 54231 Repair Hernia Inguinal > 5Yrs, Reducible Completed 01/31/2015 51917 EKG Tracing & Interpretation Completed 01/30/2014 70154 RT & lt Cath W/Injx HRT Art&L Ventr Img S&I Completed 01/22/2014 87662 Echocardiography, Transesophageal, Real Time W/Image 2D Completed W/W/O M-M 01/22/2014 43528 Pulse Wave/Continuous-Interp.RPT Completed 01/22/2014 17332 Color Flow Doppler/Interp & Reprt Completed 01/05/2014 65110 EKG Tracing & Interpretation Completed 11/30/2013 87124 Rad Shoulder Comp, Min. 2 Views Completed 09/14/2013 24379 ECHO Transthoracic, Real-Time 2D With Doppler And Color Completed Flow 06/08/2013 36119 Rad Shoulder Comp, Min. 2 Views Completed 05/24/2013 43973 Arthroplasty,Total Shoulder Replacement (TSR) Completed 05/24/2013 28389 Arthroplasty,Total Shoulder Replacement (TSR) Completed 03/09/2013 59106 Rad Shoulder Comp, Min. 2 Views Completed 12/23/2012 45740 Inject/Drain Joint/Bursa Major W/O US Completed 10/05/201256726 Inject/Drain Joint/Bursa Major W/O US Completed 05/04/2012 23361 Inject/Drain Joint/Bursa Major W/O US Completed 05/04/2012 84138 Inject/Drain Joint/Bursa Major W/O US Completed 04/20/2011 89851 Carpal Tunnel Release Completed 04/20/2011 56610 Carpal Tunnel Release Completed 07/16/2010 15276 Arthroscopy Shoulder,W/Rotator Cuff Repair Completed 07/16/2010 03496 Arthroscopy Shoulder,W/Rotator Cuff Repair Completed 07/16/2010 16942 Arthroscopy,Shoulder Decompression Of Subacromial Space Completed W/Acromio 07/16/2010 49761 Arthroscopy,Shoulder Decompression Of Subacromial Space Completed W/Acromio 04/24/2010 08066 Inject/Drain Joint/Bursa Major W/O US Completed 04/03/2010 30798 Rad Exam; Wrist, Comp, Min 3 Views Completed 02/12/201095469 Inject/Drain Joint/Bursa Major W/O US Completed 11/13/2009 98509 Rad Shoulder Comp, Min. 2 Views Completed Encounters Type Date Location Provider Dx Diagnosis Office Visit 04/29/2018 [facility] Z96.652 Presence of left 9:21a Assoc,pc [place], YARN WEIGHER artificial knee Hospitalists joint I10 Essential (primary) hypertension E78.5 Hyperlipidemia, unspecified Office Visit 04/28/2018 9:20a [facility] Luisito Z96.652 Presence of left Assoc,LING [place] artificial knee Hospitalists joint I10 Essential (primary) hypertension I34.0 Nonrheumatic mitral (valve) insufficiency Office Visit 04/13/2018 9:45a [facility] Mayito Ruggiero I34.0 Nonrheumatic mitral Of [place] Maria M.D. (valve) insufficiency Z01.810 Encounter for preprocedural cardiovascular examination M17.12 Unilateral primary osteoarthritis, left knee Office Visit 03/28/2018 11:00a [facility] Saadia Cee M25.562 Pain in left Of C.M.A. M.D. knee M25.462 Effusion, left knee M17.12 Unilateral primary osteoarthritis, left knee M21.062 Valgus deformity, not elsewhere classified, left knee Office Visit 03/22/2018 9:45a [facility] Reji SSam G25.0 Essential tremor Services [facility] [place] M.D. Z79.899 Other nursing home (current) drug therapy Office Visit 03/09/2018 1:30p [facility] Mayito Ruggiero I10 Essential (primary) Of [...] cuff of left shoulder, subs Office 05/06/2017 [facility] Theresa Landers I10 Essential Visit 10:52a Assoc,marina Souza NP (primary) Hospitalists hypertension E78.5 Hyperlipidemia, unspecified Z96.651 Presence of right artificial knee joint Office Visit 05/05/2017 10:51a [facility] Skyla I10 Essential Assoc,marina Moya NP (primary) Hospitalists hypertension E78.5 Hyperlipidemia, unspecified I34.0 Nonrheumatic mitral (valve) insufficiency Z96.651 Presence of right artificial knee joint Office Visit 05/04/2017 10:49a [facility] [place] I10 Essential Assoc,marina Mann NSamPSam (primary) Hospitalists hypertension E78.5 Hyperlipidemia, unspecified I34.0 Nonrheumatic mitral (valve) insufficiency Z96.651 Presence of right artificial knee joint Office Visit 03/17/2017 9:45a [facility] Reji S. G25.0 Essential Services Of [...] Pain in left Services Of MD shoulder C.M.ASam S46.012A Strain of musc/tend the rotator cuff of left shoulder, init Office Visit 08/07/2016 1:45p [facility] Mayito Ruggiero I34.0 Nonrheumatic mitral Of [place] Maria M.D. (valve) insufficiency I10 Essential (primary) hypertension Office Visit 02/25/2016 8:30a Alistair Crenshaw G25.0 Essential tremor Neurologic Stephane [place] Services Of [facility] Office Visit 08/22/2015 9:45a [place] Rugg[place] I34.0 Nonrheumatic mitral Cardiology Of [place] Maria (valve) Traveling Clerk insufficiency I10 Essential (primary) hypertension Office Visit 05/09/2015 [facility] Reji Crenshaw G25.0 Essential tremor 9:30a Clinic Stephane [place] Office Visit 01/31/2015 [facility] Parminder Ruggiero I34.0 Nonrheumatic 9:00a [place] Maria M.D. mitral (valve) insufficiency I10 Essential (primary) hypertension R94.31 Abnormal electrocardiogram [ECG] [EKG] Office Visit 08/03/2014 1:45p [facility] Mayito Ruggiero 424.0 Mitral Valve Of [place] Maria M.D. Disorder Office Visit 05/03/2014 9:45a [facility] Mayito Ruggiero 424.0 Mitral Valve Of [place] Maria M.D. Disorder Office Visit 02/02/2014 12:45p [facility] Mayito Ruggiero 424.0 Mitral Valve Of [place] Maria M.D. Disorder 785.2 Murmur Cardiac Undiagnosed Office Visit 01/05/2014 1:00p [facility] Mayito Ruggiero 785.2 Murmur Cardiac Of [place] Maria M.D. Undiagnosed 424.0 Mitral Valve Disorder 401.9 Hypertension Unspec Office Visit 01/04/2014 2:45p Orthopedic Jennifer Claudio.4 Sprains & Strains Services Of [place]phane Rotator Cuff C.M.ASam (Capsule) Office Visit 12/26/2013 3:45p Alistair Crenshaw 333.1 Tremor Essential Neurologic Stephane [place] & Other Forms Services Of [facility] Office Visit 11/30/2013 11:15a Orthopedic Jennifer Claudio.4 Sprains & Strains Services Of M.D. Rotator Cuff C.M.A. (Capsule) Office Visit 08/31/2013 10:15a Orthopedic Elia Anand, 716.91 Arthropathy Services Of M.Iván. Unspec Shoulder C.M.A. Region Office Visit 07/19/2013 3:00p Alistair Crenshaw 333.1 Tremor Essential Neurologic Stephane [place] & Other Forms Services Of [facility] Office Visit 03/09/2013 8:00a Jonh Anand 840.4 Sprains & Strains Services Of M.D. Rotator Cuff C.M.A. (Capsule) Office Visit 01/26/2013 1:30p Orthopedic Jennifer Osorio.4 Sprains & Strains Services Of M.D. Rotator Cuff C.M.A. (Capsule) Office Visit 01/04/2013 11:00a Alistair Ramos.1 Tremor Essential Neurologic Stephane [place] & Other Forms Services Of [facility] Office Visit 12/23/2012 1:45p Orthopedic Jennifer Osorio.4 Sprains & Strains Services Of [place] Rotator Cuff C.M.A. (Capsule) Office Visit 10/05/2012 1:30p Orthopedic Pedro Solorio0.4 Sprains & Strains Services Of Shin Rotator Cuff C.M.A. RPA-C (Capsule) Office Visit 09/07/2012 10:00a Alistair Ramos.1 Tremor Essential Neurologic Stephane [place] & Other Forms Services Of [facility] 781.2 Gait Abnormality Office Visit 06/30/2012 2:15p Orthopedic Pedro Tong 840.4 Sprains & Services Of URSULA Melissa-C Strains Rotator C.M.A. Cuff (Capsule) Office Visit 06/10/2012 1:30p Orthopedic Pedro Tong 840.4 Sprains & Services Of Shin RPA-C Strains Rotator C.M.A. Cuff (Capsule) 726.10 Bursae & Tendon Disorders Shoulder Region Unspec Office Visit 05/04/2012 1:30p Orthopedic Pedro Tong 840.4 Sprains & Services Of Shin RPA-C Strains Rotator C.M.A. Cuff (Capsule) Office Visit 04/21/2012 4:00p Orthopedic Religion H. 840.4 Sprains & Services Of [place], RPA-C Strains Rotator C.M.A. Cuff (Capsule) Office Visit 03/25/2011 8:00a Orthopedic Ted Salmon, 354.0 Carpal Tunnel Services Of M.D. Syndrome C.M.A. Office Visit 07/02/2010 9:00a Orthopedic Pedro Tong 840.4 Sprains & Services Of Mclivierithen, RPA-C Strains Rotator C.M.A. Cuff (Capsule) Office Visit 06/05/2010 9:00a Orthopedic Ted Salmon, 840.4 Sprains & Services Of M.D. Strains Rotator C.M.A. Cuff (Capsule) Office Visit 04/24/2010 1:15p Jonh Salmon 726.10 Bursae & Tendon Services Of M.D. Disorders C.M.A. Shoulder Region Unspec Office Visit 04/03/2010 1:15p Jonh Salmon, 923.21 Contusion Wrist Services Of M.D. C.M.ASam 840.9 Sprains & Strains Shoulder & Upper Arm Unspec Office Visit 02/12/2010 2:00p Jonh Jean 726.5 Enthesopathy Of Services Of Stephane Salmon Hip Region C.M.A. Office Visit 01/24/2010 11:00a Jonh Jean 726.2 Shoulder Region Services Of Stephane Salmon Affections Other C.M.A. Not Elsewhere Class 716.10 Arthropathy Traumatic Site Unspec Office Visit 11/13/2009 3:00p Jonh Salmon 726.2 Shoulder Region Services Of Stephane Affections Other C.M.A. Not Elsewhere Class Plan of Treatment Future Appointment(s):07/22/2018 11:15 [facility] - Saadia Cee M.D. at [facility] Services Of C.M.A.
--- NOTE | 2018-07-02 09:31 | ED ---
Back Pain - HPI Summary HPI Summary: Patient is a 87 year old F, brought in by ambulance, to [facility] with a chief complaint of upper R arm and upper R back pain since this morning, 07/02/18, at 08:10. Per triage, pain is rated at 8/10. Pt reports that she was using a scale to weigh herself and when stepping off, fell, hitting against the shower stall. Pt denies hitting her head and R lower arm pain. Pt denies syncopal episodes. Aggravating symptoms include sitting up and movement. No alleviating symptoms. Pt had a R reverse shoulder procedure 10-15 years ago. - History of Current Complaint Chief Complaint: EDFall Stated Complaint: INJ AFTER FALL PER EMS Time Seen by Provider: 07/02/18 09:15 Hx Obtained From: Patient Onset/Duration: Sudden Onset, Lasting Hours - 1, Still Present - Since this morning, 07/02/18 Onset/Duration: Started Hours Ago - 1, Still Present Timing: Constant Severity Initially: Severe Severity Currently: Severe Pain Intensity: 8 Pain Scale Used: 0-10 Numeric Aggravating Symptom(s): Movement Alleviating Symptom(s): Nothing Associated Signs And Symptoms: Positive: Negative - Syncopal episode, head trauma, R lower arm pain - Allergies/Home Medications Allergies/Adverse Reactions: Allergies Allergy/AdvReac Type Severity Reaction Status Date / Time Sulfa (Sulfonamide Allergy Hives Verified 07/02/18 08:59 Antibiotics) PMH/Surg Hx/FS Hx/Imm Hx Previously Healthy: No Endocrine/Hematology History: Denies: Hx Diabetes, Hx Thyroid Disease Cardiovascular History: Reports: Hx Congestive Heart Failure - CHOLESTEROL CONTROL WITH MEDS, Hx Hypertension, Hx Valvular Heart Disease - mitral valve prolapse Denies: Hx Pacemaker/ICD, Other Cardiovascular Problems/Disorders Respiratory History: Denies: Hx Asthma, Hx Chronic Obstructive Pulmonary Disease (COPD), Other Respiratory Problems/Disorders GI History: Reports: Hx Hiatal Hernia, Hx Irritable Bowel - HX OF NONE NOW Denies: Hx Ulcer, Other GI Disorders History: Denies: Hx Renal Disease Musculoskeletal History: Reports: Hx Arthritis - RIGHT SHOULDER, KNEES, FEET Sensory History: Reports: Hx Cataracts - tamika, Hx Contacts or Glasses - glasses, Hx Hearing Aid - BILAT Opthamlomology History: Reports: Hx Cataracts - tamkia, Hx Contacts or Glasses - glasses Neurological History: Reports: Hx Nerve Disease - essential tremors, sees dr barraza, Other Neuro Impairments/Disorders - essential tremors Psychiatric History: Reports: Hx Depression - CONTROL WITH MEDICATION Denies: Hx Panic Disorder, Other Psychiatric Issues/Disorders - Surgical History Surgery Procedure, Year, and Place: RIGHT REVERSE SHOULDER 2011 [facility]. 2008 [facility] BUNIONECTOMY. 2010 BILAT CATARACT [facility]. BILAT CTR 2007 [facility]. right total knee 2018, [facility]. L knee replacement, april 2018 Hx Anesthesia Reactions: No Infectious Disease History: No Infectious Disease History: Denies: Hx Clostridium Difficile, Hx Hepatitis, Hx Human Immunodeficiency Virus (HIV), Hx of Known/Suspected MRSA, Hx Shingles, Hx Tuberculosis, Hx Known/ Suspected VRE, Hx Known/Suspected VRSA, History Other Infectious Disease, Traveled Outside the [place] in Last 30 Days - Family History Known Family History: Positive: Cardiac Disease - CAD, Other - Carcinoma - Social History Alcohol Use: Daily Alcohol Amount: 1 GLASS WINE/DAY Hx Substance Use: No Substance Use Type: Reports: None Hx Tobacco Use: No Smoking Status (MU): Never Smoked Tobacco Review of Systems Musculoskeletal: Negative - R lower arm pain Positive: Other - R upper arm and R upper back pain Negative: Syncope - Denies syncopal event All Other Systems Reviewed And Are Negative: Yes Physical Exam - Summary Physical Exam Summary: Appearance: The patient is well-nourished in no acute distress and in no acute pain. Skin: The skin is warm and dry and skin color reflects adequate perfusion. HEENT: The head is normocephalic and atraumatic. The pupils are equal and reactive. The conjunctivae are clear and without drainage. Nares are patent and without drainage. Mouth reveals moist mucous membranes and the throat is without erythema and exudate. The external ears are intact. The ear canals are patent and without drainage. The tympanic membranes are intact. Neck: The neck is supple with full range of motion and non-tender. There are no carotid bruits. There is no neck vein distension. Respiratory: Chest is non-tender. Lungs are clear to auscultation and breath sounds are symmetrical and equal. Cardiovascular: Heart is regular rate and rhythm. There is no murmur or rub auscultated. There is no peripheral edema and pulses are symmetrical and equal. Abdomen: The abdomen is soft and non-tender. There are normal bowel sounds heard in all four quadrants and there is no organomegaly palpated. Musculoskeletal: Tender to ROM and palpation of R proximal humeral area, R and L low paradorsal lumbar spine, neurovascular motors are intact. Neurological: Patient is alert and oriented to person, place and time. The patient has symmetrical motor strength in all four extremities. Cranial nerves are grossly intact. Deep tendon reflexes are symmetrical and equal in all four extremities. Psychiatric: The patient has an appropriate affect and does not exhibit any anxiety or depression. Discharge: Return to the ED with any new or worsening symptoms Triage Information Reviewed: Yes Vital Signs On Initial Exam: Initial Vitals Temp Pulse Resp BP Pulse Ox 97.3 F 68 16 182/89 99 07/02/18 08:55 07/02/18 08:55 07/02/18 08:55 07/02/18 08:55 07/02/18 08:55 Vital Signs Reviewed: Yes Diagnostics - Vital Signs Vital Signs Temp Pulse Resp BP Pulse Ox 07/02/18 09:03 67 99 07/02/18 08:55 97.3 F 68 16 182/89 99 - Laboratory Result Diagrams: 07/02/18 12:51 07/02/18 12:51 Lab Statement: Any lab studies that have been ordered have been reviewed, and results considered in the medical decision making process. - Radiology R Shoulder X Ray Radiology Interpretation Completed By: Radiologist Summary of Radiographic Findings: 1. PERIPROSTHETIC FRACTURE. 2. PERIPROSTHETIC LUCENCY AND VERY THIN CORTICAL BONE ADJACENT TO THE PROXIMAL PORTION OF THE HUMERAL PROSTHESES. ED physician has reviewed this report - CT Lumbar CT Interpretation Completed By: Radiologist Summary of CT Findings: 1. FRACTURES OF THE RIGHT L2, L3 AND L4 TRANSVERSE PROCESSES. 2. MILD TO MODERATE LUMBAR SPONDYLOSIS DESCRIBED. ED Physician has reviewed the findings Upper Extremity CT Interpretation Completed By: Radiologist Summary of CT Findings: STATUS POST TOTAL RIGHT SHOULDER REPLACEMENT SURGERY. THERE IS A NONDISPLACED PERIPROSTHETIC FRACTURE ADJACENT TO THE HUMERAL PROSTHESIS DESCRIBED. ED physician has reviewed findings. - EKG 12:45 Cardiac Rate: NL - 71 BPM EKG Rhythm: Sinus Rhythm Summary of EKG Findings: Normal sinus rhythm, RBBB Re-Evaluation - Re-Evaluation First Eval Re-Evaluation Time: 12:37 Comment: Per nurse, pt has difficulty walking. Back Pain Course/Dx - Course Course Of Treatment: Ms. Plascencia suffered what sounds like a mechanical fall today. She was getting off the scale, lost her balance and fell. She comes in complaining of mid back pain and right shoulder pain. She denies any loss consciousness, head trauma or neck pain. She was nontoxic in appearance stable vital signs but was tender in the proximal right humeral area where she is status post right shoulder prosthesis. She is also tender in her mid back but neurologically intact. X-ray of her right shoulder shows periprosthetic fracture and CT of her lumbar spine reveal 3 transverse process fractures. I spoke with Dr. Cee who came and evaluated her and felt that in terms of her right shoulder she could be discharged to follow-up in the office with a sling. She cannot tolerate opiate medications and was given IM Toradol and by mouth Tylenol here in the department. She was unable to ambulate or take care of herself secondary to pain in her back subsequent to that and asked the hospitalist service to evaluate her. - Diagnoses Provider Diagnoses: Multiple transverse process fractures, Periprosthetic fracture around internal prosthetic right shoulder joint - Provider Notifications Discussed Care Of Patient With: Saadia Cee Time Discussed With Above Provider: 11:07 Instructed by Provider To: Other - Dr. Cee, orthopedics, agrees to visit pt in ED. After seeing pt, Dr. Cee advises a CTA. At 12:48 Dr. Walker, hospitalist, agreed to admit patient. Discharge - Sign-Out/Discharge Documenting (check all that apply): Patient Departure - Admited Patient Received Moderate/Deep Sedation with Procedure: No - Discharge Plan Condition: Stable Disposition: ADMITTED TO [facility] Referrals: Jeff Desai MD [Primary Care Provider] - - Billing Disposition and Condition Condition: STABLE Disposition: Admitted to [facility] - Attestation Statements Document Initiated by Scribe: Yes Documenting Scribe: Ru Martinez Provider For Whom Eugenio is Documenting (Include Credential): Piyush Lopez MD Scribe Attestation: Lesvia Burks Marco DiSanto, scribed for Piyush Lopez MD on 07/02/18 at 1640. Scribe Documentation Reviewed: Yes Provider Attestation: The documentation as recorded by the Lesvia carey Marco DiSanto accurately reflects the service I personally performed and the decisions made by me, Piyush Lopez MD Status of Scribe Document: Viewed
[2018-07-02] MEDS ORDERED: Ketorolac INJ* 30 MG/ML 1 ML VIAL IM ONE (09:39)
[2018-07-02] MEDS ORDERED: Acetaminophen TAB* 325 MG PO ONE (11:11)
[2018-07-02 12:58] LABS: ABS Lymphocytes 0.5 10^3/ul (1.0-4.8); ABS Monocytes 0.4 10^3/ul (0-0.8); ABS Neutrophils 11.7 10^3/ul (1.5-7.7); Eosinophil % 0.1 %; Hematocrit 33 % (35-47); Hemoglobin 11.1 g/dL (12.0-16.0); Lymphocyte % 4.1 %; Mean Corpuscular HGB Conc 33 g/dL (31-36); Mean Corpuscular Hemoglobin 30 pg (27-31); Mean Corpuscular Volume 91 fL (80-97); Mean Platelet Volume 8.6 fL (7.4-10.4); Platelet Count 170 10^3/uL (150-450); Red Blood Count 3.68 10^6 /uL (3.70-4.87); Red Cell Distribution Width 14 % (10.5-15); White Blood Count 12.6 10^3/uL (3.5-10.8)
[2018-07-02 13:04] LABS: INR 1.04 (0.82-1.09)
[2018-07-02 13:20] LABS: Albumin 4.1 g/dL (3.2-5.2); Albumin/Globulin Ratio 1.6 (1-3); BUN/Creatinine Ratio 29.4 (8-20); Calcium 9.2 mg/dL (8.6-10.3); EGFR African American 138.4 (>60); EGFR Non-African American 114.3 (>60); Globulin 2.5 g/dL (2-4); Magnesium 1.8 mg/dL (1.9-2.7); Potassium 3.8 mmol/L (3.5-5.0); Total Bilirubin 0.5 mg/dL (0.2-1.0); Total Protein 6.6 g/dL (6.4-8.9)
[2018-07-02 13:22] LABS: Troponin I 0.01 ng/mL (<0.04)
[2018-07-02] MEDS ORDERED: ALPRAZolam TAB* 0.25 MG PO ONE (13:28)
--- NOTE | 2018-07-02 13:31 | CONS ---
ORTHOPEDIC CONSULT NOTE: This is an orthopedic consultation in the emergency room. Thank you for this orthopedic consultation. DATE OF CONSULT: 07/02/18 CHIEF COMPLAINT: Right shoulder pain. HISTORY OF PRESENT ILLNESS: Ms. Plascencia is an 87-year-old female with right shoulder pain after a fall this a.m. She slipped in her bathroom, fell onto her right side. She immediately had 10/10 pain in the right lower back and right shoulder. She has increased pain with any attempt to move the shoulder, decreased pain with mobilization. Walking was difficult for her. She denies any pain in the lower extremities. She denies head trauma or amnesia. PAST MEDICAL HISTORY: 1. Hypertension. 2. Heart disease. 3. Heart attack. 4. Hypercholesterolemia. 5. Osteoarthritis. 6. Depression. PAST SURGICAL HISTORY: 1. Hernia repair. 2. Reverse total shoulder replacement. FAMILY HISTORY: Maternal: Cancer. Paternal: Heart disease, hypertension. SOCIAL HISTORY: The patient lives with her spouse. She is retired. No tobacco or recreational drug use. Seven alcoholic beverages per week. Normally very active with water aerobics, normally an independent ambulator, right-hand dominant. REVIEW OF SYSTEMS: Positive for the recent fall, right shoulder pain, lower back pain. Positive for left knee pain. Otherwise, the patient reports review of systems is negative or not relevant. PHYSICAL EXAM: General: The patient is a thin female, in no apparent distress. Alert and oriented x3. Pleasant mood and appropriate affect. Accompanied by a supportive daughter. Gait is not assessed. HEENT: Atraumatic , normocephalic. Pupils equal and reactive to light. Chest: Unlabored breathing. Vitals: Blood pressure 138/62, pulse of 86, temperature 98.2. Right Upper Extremity: The patient's skin is intact. No abrasions or open wounds. No palpable masses or lymph nodes. Tenderness along the humeral shaft and proximal humerus. Any attempt to move the shoulder causes severe pain. She can actively move at her elbow and wrist without pain. No bony crepitus at the elbow, forearm, or wrist. She demonstrates thumbs up, okay and cross finger sign. 2+ palpable radial pulse. Left Upper Extremity: The patient can move without difficulty or pain. She is neurovascularly intact. Bilateral Lower Extremity: The patient's skin is intact. Her midline incisions at the knees are healing well. She demonstrates dorsiflexion and plantar flexion. 2+ palpable DP pulses. DIAGNOSTIC STUDIES: Radiographs: Multiple views of the patient's right shoulder show a reverse total shoulder arthroplasty. There is a periprosthetic fracture around the humerus. This appears to be a spiral and does extend pass the tip of the implant. I am unsure whether there is loosening of the implant. CT scan of the spine shows L2, L3, and L4 right transverse process fractures of the lumbar spine. ASSESSMENT AND PLAN: Ms. Plascencia is an 87-year-old female, status post fall with right periprosthetic humerus fracture and lumbar transverse process fractures. The patient, her daughter, and I discussed treatment, both operative and nonoperative, for this periprosthetic humerus fracture. They would like to avoid surgery if at all possible. I agree with this. Currently, the implant appears to have no loosening. The fracture appears to be minimally displaced, if not nondisplaced. I would recommend a CT scan of the right humerus for better visualization and characterization of the fracture. I feel the fracture is likely more involved than the plain films are showing. For now, we will treat her nonoperatively. If she is able to ambulate and go home, she can follow up with me in the clinic this week. She should be in a sling, nonweightbearing, no lifting with the right upper extremity. She is a significant fall risk. She is just now 2 months after right total knee arthroplasty with me. The patient and her daughter understand the treatment plan. I will review the CT and I will see her in clinic as an outpatient. [id number]/[facility]PS #: [id number] MARCY
[2018-07-02] MEDS ORDERED: oxyCODONE/Acetamin 5/325 MG* TAB PO ONE (14:19)
[2018-07-02 14:25] LABS: TSH (Thyroid Stimulating Horm) 1.69 mcIU/mL (0.34-5.60)
[2018-07-02] MEDS ORDERED: Magnesium Sulfate 1 GM IV* 1 GM/100 ML BAG IV ONE (14:35)
[2018-07-02 17:37] LABS: Urine Appearance Cloudy; Urine Bacteria Absent (Absent); Urine Bilirubin Negative (Negative); Urine Blood 1+ (Negative); Urine Color Yellow; Urine Glucose Negative (Negative); Urine Ketones 1+ (Negative); Urine Nitrite Negative (Negative); Urine Protein Negative (Negative); Urine Red Blood Cell 1+(3-5/hpf) (Absent); Urine Specific Gravity 1.015 (1.010-1.030); Urine Squamous Epithelial Cell Present (Absent); Urine Urobilinogen Negative (Negative); Urine White Blood Cell Trace(0-5/hpf) (Absent)
[2018-07-02] MEDS ORDERED: Ondansetron INJ* 2 MG/ML VIAL IV PRN (17:52)
[2018-07-02] MEDS ORDERED: Acetaminophen TAB* 325 MG PO PRN (17:52)
[2018-07-02] MEDS: Enoxaparin(*) 40 MG/0.4 ML SYR SUBCUT SCH (20:22)
[2018-07-02] MEDS: oxyCODONE/Acetamin 5/325 MG* TAB PO PRN (20:22)
[2018-07-02] MEDS ORDERED: Senna TAB PO ONE (20:29)
[2018-07-02] MEDS ORDERED: Ketorolac INJ* 15 MG/ML 1 ML VIAL IV PUSH PRN (20:49)
[2018-07-02] MEDS: Acetaminophen TAB* 325 MG PO SCH (22:10)
[2018-07-02] MEDS: Primidone TAB(*) 50 MG PO SCH (22:11)
[2018-07-03] MEDS: oxyCODONE/Acetamin 5/325 MG* TAB PO PRN ×4 (00:42→22:13)
--- NOTE | 2018-07-03 01:30 | HP ---
CC: Dr. Desai * HISTORY AND PHYSICAL: DATE OF ADMISSION: 07/02/18 ATTENDING PHYSICIAN: Dr. Saad Walker * (dictated by LING Ortiz). PRIMARY CARE PHYSICIAN: Dr. Desai. MEDICAL OFFICE RECEPTIONIST ASSISTANT: Dr. Mayito Maira. CHIEF COMPLAINT: Mechanical fall. HISTORY OF PRESENT ILLNESS: Dayana Plascencia is an 87-year-old white female with past medical history of hypertension, hyperlipidemia, mitral valve regurgitation , essential tremor, depression, grade 2 diastolic dysfunction, who presents to the emergency department after a mechanical fall in her home. The patient was standing up on a scale in her bathroom and lost her balance when stepping off and fell backwards and she believes that she hit her head on the bathroom door that she is unsure. She denies loss of consciousness. She denies neck pain, head pain, chest pain, difficulty breathing. She admits she did "feel fuzzy" after the fall. Her then called EMS for the patient. The patient states that she does have low back pain and right shoulder pain. She denies at time of evaluation nausea or abdominal pain. However, after the patient had received Toradol and acetaminophen in the emergency department, she was ambulated by a nursing staff and reportedly became immediately nauseous and diaphoretic. At this point, the patient was refusing opiates for pain treatment ; however, after discussion between her and her daughter, she was in agreement. The patient denies bowel or bladder incontinence. PAST MEDICAL HISTORY: Hypertension, hyperlipidemia, mitral valve regurgitation , essential tremor, depression, grade 2 systolic dysfunction. PAST SURGICAL HISTORY: 1. Bilateral total knee arthroscopy, including left TKA in April 2018. 2. Right shoulder replacement. 3. Left shoulder arthroscopy. 4. Hernia repair. 5. Cataract. 6. Carpal tunnel release. 7. Hammertoe surgery. 8. Bunionectomy. HOME MEDICATIONS: 1. Lisinopril 10 mg p.o. q.a.m. 2. Prozac 40 mg p.o. q.a.m. 3. Lipitor 20 mg p.o. q.p.m. 4. Ambien 5 mg p.o. at bedtime p.r.n. insomnia. 5. Primidone 150 mg p.o. at bedtime. ALLERGIES: Reaction of hives to SULFA DRUGS. FAMILY HISTORY: The patient's father due to coronary artery disease in his 70s. Her mother of a type of cancer in the abdomen, age unknown to the patient. SOCIAL HISTORY: The patient lives with her . She is a retired [employer] of the [employer]. She had 8 children. She has never smoked and denies drug use. She drinks 1 glass of wine per day. REVIEW OF SYSTEMS: An 11-point review of systems was completed, and all pertinent positives and negatives are above in the HPI. All other systems are negative. OBJECTIVE: Vital Signs: In the emergency department, temperature 97.3, pulse rate 68, respiratory rate 16, O2 saturation 99% on room air, blood pressure 182/ 89. PHYSICAL EXAMINATION GENERAL: Thin, elderly white female, lying upright in ED stretcher, appearing comfortable and in no acute distress. HEENT: Head: Normocephalic, atraumatic. No tenderness to palpation throughout skull. Eyes: No nystagmus. EOMI. PERRL. Sclerae anicteric. ENT : Mucous membranes are moist. NECK: Supple with and without JVD. No tenderness to palpation of cervical spinous processes. Range of motion is intact and strength is intact of lateral movement of the neck. LUNGS: Lungs are clear to auscultation throughout. Chest expansion is symmetrical with respirations. CARDIO: Regular rate and rhythm without murmurs, rubs, or gallops. ABDOMEN: Abdomen is soft, nontender, nondistended. EXTREMITIES: No cyanosis, edema, or clubbing. No joint erythema. MUSCULOSKELETAL: Range of motion is intact to bilateral shoulders. There is tenderness to palpation at right shoulder. There is tenderness to palpation in lumbar spine. No tenderness to palpation of spinous processes throughout thoracic spine. No tenderness to palpation in bilateral knees. NEUROLOGIC: No focal deficits. Strength is 5/5 in all extremities. The patient is alert and oriented x3. Sensation to light touch is intact and equal throughout. PSYCH: The patient is pleasant and cooperative. SKIN: Skin is warm, dry, and intact without rashes. DIAGNOSTIC STUDIES/LAB DATA: White blood cell count 12.6, hemoglobin 11.1, hematocrit 33, platelet count 170. Sodium 139, potassium 3.8, chloride 105, carbon dioxide 2.4, BUN 15, creatinine 0.51, glucose 108. Magnesium 1.8, calcium 9.2, lactic acid 0.7. Troponin 0.01. Urinalysis: Negative protein, +1 ketones, +1 blood, negative nitrite, negative bilirubin, negative urobilinogen, negative leukocyte esterase, trace white blood cell, +1 red blood cell, present squamous epithelial cells, absent urine bacteria, present hyaline cast. Lumbar spine CT, impression: Fracture of the right L2, L3, and L4 transverse processes, mild to moderate lumbar spondylosis as described. Shoulder x-ray, 07/02/18: 1. Periprosthetic fracture. 2. Periprosthetic lucency and very thin "adjacent to proximal portion of the humeral prosthesis." Right upper extremity CT, impression: Status post total right shoulder replacement surgery. There is a nondisplaced periprosthetic fracture adjacent to the humeral prosthesis as described. Chest x-ray, impression: Cardiomegaly, unchanged. No evidence for acute findings. Brain CT on 07/02/18, impression: No evidence for acute intracranial abnormality. Cervical spine CT: 1. No evidence for fracture. 2. Anterolisthesis at C4-C5 and T2-T3 levels likely degenerative in origin. 3. Moderate cervical spondylosis as described. EKG: Normal sinus rhythm, rate 71 beats per minute approximately [address] depression in V5, V6, V4, V3. Right bundle branch block is consistent with previous EKG; however, the ST depressions are new. ASSESSMENT AND PLAN: Dayana Plascencia is an 87-year-old white female with past medical history significant for hypertension, hyperlipidemia, mitral valve regurgitation, essential tremor, depression, grade 2 diastolic dysfunction, who presents to the emergency department, status post mechanical fall and is found to have new ST depressions on EKG. The patient will be admitted in observation for: 1. Abnormal EKG. The patient is asymptomatic, does not have chest pain, neck pain, jaw pain. She does have right shoulder pain; however, she has a fracture to the right humerus. The ST depressions appear new and must be treated as such. Her troponins will be trended. Her first troponin has been negative. She will be admitted on telemetry. The patient has a HEART score of 5 and therefore, a stress test is indicated. It may be reasonable to discharge the patient tomorrow if telemetry is normal and troponins are all negative for outpatient stress test next week as stress tests are not completed over the weekend. The patient's abnormal EKG finding may be due to the stress of the fractures that she has sustained. She does have risk factors including family history of coronary artery disease and her hypertension and age. 2. Mechanical fall. The patient was found to have a right humerus fracture at the site of her shoulder replacement. This is further described below. Additionally, the patient was found to have lumbar spine fractures and this is further described below. The patient does believe she had some head trauma. CT brain and CT cervical spine were normal. We ordered a PT evaluation for tomorrow as the patient did have pain in the emergency department with ambulation, however, this was prior to agreeing to receiving opiates. We will continue to manage this pain with p.r.n. Percocet. It does not appear that this was a syncopal episode. It appears that this was truly a mechanical fall as the patient fell off, had a miss-stepping off a scale. 3. Humerus fracture. Dr. Cee saw the patient in the emergency department and determined that if the CT demonstrated that this was a nondisplaced fracture that she would not opt for further surgery as the patient and her family were hoping to manage the fracture without surgery. Dr. Cee recommended a sling to the right shoulder and right arm should be nonweightbearing. We will continue to manage her pain with p.r.n. Percocet and scheduled Tylenol, additionally p.r.n. Toradol injection will be ordered as the patient does prefer to not use opiates. Bowel regimen has been ordered as well in the setting of opiate use. 4. Lumbar vertebrae fracture. The patient sustained transverse process fractures to L2 through L4. [facility] of Neurosurgery was contacted and states that there is no surgical management for this. The patient states that the patient will continue to likely have pain for 6 to 8 weeks as this continues to heal. This was conveyed to the patient. Pain management as discussed above. 5. Mild leukocytosis. The patient was found to have a leukocytosis of 12.6. Her chest x-ray does not demonstrate consolidation and her urine orifice does not appear to demonstrate bacterial infection; however, urine culture is pending. The patient is afebrile. She does not demonstrate clinical signs of pneumonia or other infection. It is quite possible that this leukocytosis is due to new hardware as the patient had left total knee arthroplasty in April. No evidence of septic joint at evaluation. We can continue to monitor her CBC. 6. FEN: The patient was found to have hypomagnesemia at time of evaluation. This was replaced and we will continue to monitor. The patient was ordered a regular unrestricted diet. No IV fluids needed at this time. 7. DVT prophylaxis. The patient has a DVT risk score of 3, Lovenox 40 mg daily ordered. 8. Code status. The patient is full code. The patient's daughter, Tiny will be the patient's medical surrogate decision maker should she need one. TIME SPENT: Approximately 55 minutes was spent on this admission; approximately half of this time was spent at bedside. This case has been reviewed by my attending, Dr. Saad Walker; and he agrees with this plan of care. LING ORTIZ [id number]/[facility] #: [id number] MARCY
[2018-07-03] MEDS: Acetaminophen TAB* 325 MG PO SCH ×3 (04:49→20:29)
[2018-07-03 05:52] LABS: ABS Eosinophils 0.1 10^3/ul (0-0.6); ABS Lymphocytes 1.6 10^3/ul (1.0-4.8); ABS Monocytes 0.6 10^3/ul (0-0.8); ABS Neutrophils 3.9 10^3/ul (1.5-7.7); Eosinophil % 1.2 %; Hematocrit 32 % (35-47); Hemoglobin 10.6 g/dL (12.0-16.0); Lymphocyte % 25.9 %; Mean Corpuscular HGB Conc 33 g/dL (31-36); Mean Corpuscular Hemoglobin 31 pg (27-31); Mean Corpuscular Volume 93 fL (80-97); Mean Platelet Volume 8.8 fL (7.4-10.4); Nucleated Red Blood Cells % 0.4; Platelet Count 149 10^3/uL (150-450); Red Blood Count 3.43 10^6 /uL (3.70-4.87); Red Cell Distribution Width 15 % (10.5-15); White Blood Count 6.2 10^3/uL (3.5-10.8)
[2018-07-03 06:05] LABS: Calcium 8.7 mg/dL (8.6-10.3); Magnesium 2.1 mg/dL (1.9-2.7); Potassium 3.5 mmol/L (3.5-5.0)
[2018-07-03 06:11] LABS: BUN/Creatinine Ratio 30.9 (8-20); EGFR African American 126.8 (>60); EGFR Non-African American 104.8 (>60)
[2018-07-03] MEDS: FLUoxetine CAP* 20 MG PO SCH (08:24)
[2018-07-03] MEDS: Lisinopril TAB* 10 MG PO SCH (08:24)
[2018-07-03] MEDS: Polyethylene Glycol 3350* 17 GM PACKET PO SCH (08:24)
[2018-07-03] MEDS ORDERED: Polyethylene Glycol 3350* 17 GM PACKET PO PRN (11:33)
[2018-07-03] MEDS ORDERED: Magnesium Hydroxide LIQ* 30 ML UDC PO PRN (11:33)
[2018-07-03] MEDS ORDERED: Senna TAB PO PRN (11:33)
--- NOTE | 2018-07-03 11:36 | PN ---
Subjective Date of Service: 07/03/18 Interval History: Pt c/o pain in R shoulder and back/r flank after the fall. Has not had a BM yet Seen with her daughter by the bedside Objective Active Medications: Acetaminophen (Tylenol Tab*) 650 mg PO Q8H [facility] Last Admin: 07/03/18 04:49 Dose: 650 mg Atorvastatin Calcium (Lipitor*) 20 mg PO 1700 DAVID Enoxaparin Sodium (Lovenox(*)) 40 mg SUBCUT Q24H [facility] Last Admin: 07/02/18 20:22 Dose: 40 mg Fluoxetine HCl (Prozac Cap*) 40 mg PO QAM [facility] Last Admin: 07/03/18 08:24 Dose: 40 mg Lisinopril (Prinivil Tab*) 10 mg PO QAM [facility] Last Admin: 07/03/18 08:24 Dose: 10 mg Ondansetron HCl (Zofran Inj*) 4 mg IV Q4H PRN PRN Reason: NAUSEA/VOMITING Oxycodone/Acetaminophen (Percocet 5/325 Tab*) 1 tab PO Q4H PRN PRN Reason: Pain Last Admin: 07/03/18 08:28 Dose: 1 tab Polyethylene Glycol/Electrolytes (Miralax*) 17 gm PO DAILY [facility] Last Admin: 07/03/18 08:24 Dose: 17 gm Primidone (Mysoline Tab(*)) 150 mg PO BEDTIME [facility] Last Admin: 07/02/18 22:11 Dose: 150 mg Vital Signs - 8 hr 07/03/18 07/03/18 07/03/18 03:47 04:49 07:20 Temperature 97.4 F 97.4 F Pulse Rate 71 71 Respiratory 16 16 19 Rate Blood Pressure 154/81 134/74 (mmHg) O2 Sat by Pulse 99 97 Oximetry 07/03/18 07/03/18 08:28 10:44 Temperature Pulse Rate Respiratory 20 16 Rate Blood Pressure (mmHg) O2 Sat by Pulse Oximetry Oxygen Devices in Use Now: None Appearance: 87 yo f in nAD, aAOx3 Eyes: No Scleral Icterus, PERRLA Ears/Nose/Mouth/Throat: NL Teeth, Lips, Gums, Mucous Membranes Moist Neck: NL Appearance and Movements; NL JVP, Trachea Midline Respiratory: Symmetrical Chest Expansion and Respiratory Effort, Clear to Auscultation Cardiovascular: NL Sounds; No Murmurs; No JVD, RRR Abdominal: NL Sounds; No Tenderness; No Distention, - - R flank ecchymosis and tendernes to palpation Lymphatic: No Cervical Adenopathy Extremities: No Edema, No Clubbing, Cyanosis, - - R arm in a sling Skin: No Nodules or Sclerosis Neurological: Alert and Oriented x 3, NL Muscle Strength and Tone Result Diagrams: 07/03/18 04:40 07/03/18 04:40 Assess/Plan/Problems-Billing Assessment: 87 yo F with mechanical fall. R periprosthetic humerus fx and lumbar transverse processes fx. - Patient Problems (1) Humerus fracture Comment: periprosthetic appreciate Dr. Cee's consult cont cling and conservative management (2) Lumbar transverse process fracture Comment: of [id number] management (3) Essential tremor Comment: - Continue primidone (4) HTN (hypertension) Comment: cont lisinopril (5) DVT prophylaxis Comment: lovenox Status and Disposition: cont OBV for PT/Ot eval . Family opted for PMRU eval. Refuse STR
[2018-07-03] MEDS: Enoxaparin(*) 40 MG/0.4 ML SYR SUBCUT SCH (17:32)
[2018-07-03] MEDS: Atorvastatin* 20 MG TAB PO SCH (17:32)
[2018-07-03] MEDS: Docusate CAP* 100 MG PO SCH (20:30)
[2018-07-03] MEDS: Primidone TAB(*) 50 MG PO SCH (20:33)
[2018-07-03] MEDS: Magnesium Hydroxide LIQ* 30 ML UDC PO SCH (20:34)
[2018-07-04] MEDS: Acetaminophen TAB* 325 MG PO SCH ×3 (04:01→19:30)
[2018-07-04] MEDS: oxyCODONE/Acetamin 5/325 MG* TAB PO PRN ×2 (04:02→10:09)
[2018-07-04] MEDS: Docusate CAP* 100 MG PO SCH ×2 (10:05→19:33)
[2018-07-04] MEDS: Polyethylene Glycol 3350* 17 GM PACKET PO SCH (10:05)
[2018-07-04] MEDS: Magnesium Hydroxide LIQ* 30 ML UDC PO SCH ×2 (10:05→19:33)
[2018-07-04] MEDS: Lisinopril TAB* 10 MG PO SCH (10:06)
[2018-07-04] MEDS: FLUoxetine CAP* 20 MG PO SCH (10:06)
--- NOTE | 2018-07-04 13:39 | PN ---
Subjective Date of Service: 07/04/18 Interval History: pt still c/o pain in R arm, back pain only with deep breathing Objective Active Medications: Acetaminophen (Tylenol Tab*) 650 mg PO Q8H [facility] Last Admin: 07/04/18 13:26 Dose: 650 mg Atorvastatin Calcium (Lipitor*) 20 mg PO 1700 [facility] Last Admin: 07/03/18 17:32 Dose: 20 mg Docusate Sodium (Colace Cap*) 100 mg PO BID [facility] Last Admin: 07/04/18 10:05 Dose: Not Given Enoxaparin Sodium (Lovenox(*)) 40 mg SUBCUT Q24H [facility] Last Admin: 07/03/18 17:32 Dose: 40 mg Fluoxetine HCl (Prozac Cap*) 40 mg PO QAM [facility] Last Admin: 07/04/18 10:06 Dose: 40 mg Lisinopril (Prinivil Tab*) 10 mg PO QAM [facility] Last Admin: 07/04/18 10:06 Dose: 10 mg Magnesium Hydroxide (Milk Of Magnesia Liq*) 30 ml PO BID [facility] Last Admin: 07/04/18 10:05 Dose: Not Given Magnesium Hydroxide (Milk Of Magnesia Liq*) 30 ml PO BID PRN PRN Reason: CONSTIPATION Last Admin: 07/03/18 15:30 Dose: 30 ml Ondansetron HCl (Zofran Inj*) 4 mg IV Q4H PRN PRN Reason: NAUSEA/VOMITING Oxycodone HCl (Roxycodone Tab*) 5 mg PO Q4H PRN PRN Reason: PAIN Polyethylene Glycol/Electrolytes (Miralax*) 17 gm PO DAILY [facility] Last Admin: 07/04/18 10:05 Dose: Not Given Polyethylene Glycol/Electrolytes (Miralax*) 17 gm PO DAILY PRN PRN Reason: CONSTIPATION Primidone (Mysoline Tab(*)) 150 mg PO BEDTIME [facility] Last Admin: 07/03/18 20:33 Dose: 150 mg Senna (Senokot Tab*) 1 tab PO BEDTIME PRN PRN Reason: CONSTIPATION Vital Signs - 8 hr 07/04/18 07/04/18 07/04/18 06:12 07:22 10:09 Temperature 97.8 F Pulse Rate 69 Respiratory 15 16 18 Rate Blood Pressure 119/60 (mmHg) O2 Sat by Pulse 97 Oximetry 07/04/18 07/04/18 11:18 13:28 Temperature 97.3 F Pulse Rate 80 Respiratory 14 16 Rate Blood Pressure 117/63 (mmHg) O2 Sat by Pulse 99 Oximetry Oxygen Devices in Use Now: None Appearance: 87 yo f in nAD, AAOx3 Eyes: No Scleral Icterus, PERRLA Ears/Nose/Mouth/Throat: NL Teeth, Lips, Gums, Mucous Membranes Moist Neck: NL Appearance and Movements; NL JVP, Trachea Midline Respiratory: Symmetrical Chest Expansion and Respiratory Effort, Clear to Auscultation Cardiovascular: NL Sounds; No Murmurs; No JVD Abdominal: NL Sounds; No Tenderness; No Distention Lymphatic: No Cervical Adenopathy Extremities: No Clubbing, Cyanosis, - - R arm in sling Skin: No Rash or Ulcers, No Nodules or Sclerosis Neurological: Alert and Oriented x 3, NL Muscle Strength and Tone Result Diagrams: 07/03/18 04:40 07/03/18 04:40 Microbiology and Other Data: Microbiology 07/02/18 17:20 Urine Culture - Final Urine Assess/Plan/Problems-Billing Assessment: 87 yo F with mechanical fall. R periprosthetic humerus fx and lumbar transverse processes fx. - Patient Problems (1) Humerus fracture Comment: periprosthetic appreciate Dr. Cee's consult cont cling and conservative management (2) Lumbar transverse process fracture Comment: of [id number] management (3) Essential tremor Comment: - Continue primidone (4) HTN (hypertension) Comment: cont lisinopril (5) DVT prophylaxis Comment: lovenox Status and Disposition: cont OBV for PT/Ot eval . Family opted for PMRU eval. Refuse STR.
--- NOTE | 2018-07-04 15:48 | PN ---
Progress Note - Progress Note Date of Service: 07/04/18 SOAP: Subjective: []Pt seen at bedside. Her RUE pain is well controlled. Denies CP, SOB, dizziness , nausea. Objective: []General: Appears well, NAD RUE: Sling in use, sKin envelope intact, Wrist and digit flexion and extension intact. Thumbs up, okay sign intact. Sensation intact to light touch distally. 2 + radial pulse. Assessment: []right periprosthetic fracture of the humerus. Plan: []NWB RUE, Sling Nonop tx anticipated Continue to work with PT/OT, caution as patient is a fall risk. FU with Dr Cee when discharged from the hospital. Vital Signs Temp 97.9 F 07/04/18 15:09 Pulse 73 07/04/18 15:09 Resp 20 07/04/18 15:09 BP 108/56 07/04/18 15:09 Pulse Ox 96 07/04/18 15:09 Intake & Output 07/03/18 07/04/18 07/04/18 18:59 06:59 18:59 Intake Total 830 540 960 Balance 830 540 960 Intake: Oral 830 540 960 Other: Estimated Void Large Medium # Bowel Movements 1 Estimated Stool Amount Medium # Voids 1 2 Laboratory Last Values WBC 6.2 10^3/uL (3.5-10.8) 07/03/18 04:40 RBC 3.43 10^6 /uL (3.70-4.87) L 07/03/18 04:40 Hgb 10.6 g/dL (12.0-16.0) L 07/03/18 04:40 Hct 32 % (35-47) L 07/03/18 04:40 MCV 93 fL (80-97) 07/03/18 04:40 MCH 31 pg (27-31) 07/03/18 04:40 MCHC 33 g/dL (31-36) 07/03/18 04:40 RDW 15 % (10.5-15) 07/03/18 04:40 Plt Count 149 10^3/uL (150-450) L 07/03/18 04:40 MPV 8.8 fL (7.4-10.4) 07/03/18 04:40 Neut % (Auto) 62.3 % 07/03/18 04:40 Lymph % (Auto) 25.9 % 07/03/18 04:40 [place] % (Auto) 10.1 % 07/03/18 04:40 Eos % (Auto) 1.2 % 07/03/18 04:40 Baso % (Auto) 0.5 % 07/03/18 04:40 Absolute Neuts (auto) 3.9 10^3/ul (1.5-7.7) 07/03/18 04:40 Absolute Lymphs (auto) 1.6 10^3/ul (1.0-4.8) 07/03/18 04:40 Absolute Monos (auto) 0.6 10^3/ul (0-0.8) 07/03/18 04:40 Absolute Eos (auto) 0.1 10^3/ul (0-0.6) 07/03/18 04:40 Absolute Basos (auto) 0.0 10^3/ul (0-0.2) 07/03/18 04:40 Absolute Nucleated RBC 0.0 10^3/ul 07/03/18 04:40 Nucleated RBC % 0.4 07/03/18 04:40 INR (Anticoag Therapy) 1.04 (0.82-1.09) 07/02/18 12:51 Sodium 136 mmol/L (135-145) 07/03/18 04:40 Potassium 3.5 mmol/L (3.5-5.0) 07/03/18 04:40 Chloride 104 mmol/L (101-111) 07/03/18 04:40 Carbon Dioxide 24 mmol/L (22-32) 07/03/18 04:40 Anion Gap 8 mmol/L (2-11) 07/03/18 04:40 BUN 17 mg/dL (6-24) 07/03/18 04:40 Creatinine 0.55 mg/dL (0.51-0.95) 07/03/18 04:40 Est GFR ( Amer) 126.8 (>60) 07/03/18 04:40 Est GFR (Non-Af Amer) 104.8 (>60) 07/03/18 04:40 BUN/Creatinine Ratio 30.9 (8-20) H 07/03/18 04:40 Glucose 84 mg/dL (70-100) 07/03/18 04:40 Lactic Acid 0.7 mmol/L (0.5-2.0) 07/02/18 12:51 Calcium 8.7 mg/dL (8.6-10.3) 07/03/18 04:40 Magnesium 2.1 mg/dL (1.9-2.7) 07/03/18 04:40 Total Bilirubin 0.50 mg/dL (0.2-1.0) 07/02/18 12:51 AST 32 U/L (13-39) 07/02/18 12:51 ALT 27 U/L (7-52) 07/02/18 12:51 Alkaline Phosphatase 80 U/L (34-104) 07/02/18 12:51 Troponin I 0.01 ng/mL (<0.04) 07/02/18 18:58 Total Protein 6.6 g/dL (6.4-8.9) 07/02/18 12:51 Albumin 4.1 g/dL (3.2-5.2) 07/02/18 12:51 Globulin 2.5 g/dL (2-4) 07/02/18 12:51 Albumin/Globulin Ratio 1.6 (1-3) 07/02/18 12:51 TSH 1.69 mcIU/mL (0.34-5.60) 07/02/18 12:51 Urine Color Yellow 07/02/18 17:20 Urine Appearance Cloudy 07/02/18 17:20 Urine pH 6.0 (5-9) 07/02/18 17:20 Ur Specific [place] 1.015 (1.010-1.030) 07/02/18 17:20 Urine Protein Negative (Negative) 07/02/18 17:20 Urine Ketones 1+ (Negative) A 07/02/18 17:20 Urine Blood 1+ (Negative) A 07/02/18 17:20 Urine Nitrate Negative (Negative) 07/02/18 17:20 Urine Bilirubin Negative (Negative) 07/02/18 17:20 Urine Urobilinogen Negative (Negative) 07/02/18 17:20 Ur Leukocyte Esterase Negative (Negative) 07/02/18 17:20 Urine WBC (Auto) Trace(0-5/hpf) (Absent) 07/02/18 17:20 Urine RBC (Auto) 1+(3-5/hpf) (Absent) A 07/02/18 17:20 Ur Squamous Epith Cells Present (Absent) A 07/02/18 17:20 Urine Bacteria Absent (Absent) 07/02/18 17:20 Hyaline Casts Present (Absent) A 07/02/18 17:20 Urine Glucose Negative (Negative) 07/02/18 17:20
[2018-07-04] MEDS: Atorvastatin* 20 MG TAB PO SCH (17:22)
[2018-07-04] MEDS: Enoxaparin(*) 40 MG/0.4 ML SYR SUBCUT SCH (17:22)
[2018-07-04] MEDS: Primidone TAB(*) 50 MG PO SCH (19:33)
[2018-07-05] MEDS: oxyCODONE TAB* 5 MG TAB PO PRN ×2 (00:59→07:56)
--- NOTE | 2018-07-05 02:55 | DS ---
CC: Dr. Desai; Dr. Maria; Dr. Cee; Dr. Evans; Dr. Pacheco * DISCHARGE SUMMARY: DATE OF ADMISSION: 07/02/18 ANTICIPATED DATE OF DISCHARGE: 07/05/18 PRIMARY CARE PROVIDER: Dr. Desai. CONDITION AT DISCHARGE: Stable. The patient is going to be discharged to physiotherapy unit at [facility] on the morning of 07/05/18. DISCHARGE DIAGNOSES: Status post mechanical fall with subsequent right periprosthetic humerus fracture and lumbar transverse processes fracture of L2 to L4. SECONDARY DIAGNOSES: 1. History of bilateral knee arthroscopy including left knee replacement in April 2018. 2. History of right shoulder replacement. 3. Left shoulder arthroscopy. 4. Hernia repair. 5. Cataract. 6. Carpal tunnel release. 7. Hypertension. 8. Hyperlipidemia. 9. Mitral valve regurgitation. 10. Essential tremor. 11. Depression. MEDICATIONS AT DISCHARGE: Include: 1. Oxycodone 5 mg every 4 hours p.r.n. 2. Lipitor 20 mg daily. 3. Prozac 40 mg daily. 4. Lisinopril 10 mg daily. 5. Primidone 150 mg at bedtime. 6. Ambien 5 mg at bedtime p.r.n. 7. Colace 100 mg b.i.d. 8. MiraLAX 17 g daily p.r.n. 9. Senokot 1 tablet at bedtime p.r.n. CONSULTATIONS DURING THE HOSPITAL STAY INCLUDED: Dr. Cee from Orthopedic Surgery. LABORATORY DATA AND STUDIES PERFORMED DURING THE HOSPITAL STAY: On 07/03/18, white blood cell count was 6.2, hemoglobin 10.6, hematocrit of 32, and platelets of 149. Sodium 136, potassium 3.5, chloride 105, carbon dioxide 24, BUN 17, creatinine 0.55. The patient's troponin was 0.01. Cervical spine CT. Impression: "No evidence of fracture. Anterolisthesis of the C4, C5, T2, T3 level likely degenerative in origin. Moderate cervical spondylosis as described." Brain CT obtained on 07/02/18. Impression: "No evidence of acute intracranial abnormality." Portable chest x-ray on 07/02/18. Impression: "Cardiomegaly, unchanged with no evidence of acute findings." Upper extremity CT on the right. Impression: "Status post right shoulder replacement surgery with nondisplaced periprosthetic fracture adjacent to the humeral prosthesis as described." Lumbar spine CT. Impression: "Fractures of the right L2, L3, and L4 transverse processes. [id number] lumbar spondylosis as described." DIET AT DISCHARGE: Regular. WEIGHT BEARING STATUS AT DISCHARGE: The patient is to wear a sling in the right arm and she is nonweightbearing status on the right arm. At discharge, the patient is being discharged to our physiotherapy unit. At discharge from the hospital after the physiotherapy unit, the patient is recommended to follow up with her primary care provider in 4 to 7 days after discharge from the hospital and Dr. Cee also within a week or 2 after discharge from the hospital. PHYSICAL EXAM AT TIME OF DICTATION: Blood pressure is 108/56, heart rate of 73 and regular, respiratory rate 20, oxygen saturation 96% on room air, temperature 97.9. General: The patient is a pleasant 87-year-old female who is in no acute distress. Alert, awake, and oriented x3. HEENT: Head: Atraumatic , normocephalic. Eyes: Pupils are equal, reactive to light and accommodation. Oropharynx is clear. Mucosa moist. Neck: Supple. No JVD. No bruits bilaterally. Cardiovascular: Regular rate and rhythm. No murmurs. Respiratory : Clear to auscultation bilaterally. Abdomen: Soft, nontender. Bowel sounds are present in all 4 quadrants. Extremities: There is no edema. Pulses +2 bilaterally. No clubbing or cyanosis. The right shoulder is in a sling. It is painful for the patient to move the right shoulder. On evaluation of the skin, the patient has an ecchymotic area in a band-like fashion on the right flank after the fall. Neuro evaluation: Speech is clear. Cranial nerves II through XII are grossly intact. Motor strength is 5/5 bilaterally apart from the limited range of motion in the right shoulder due to an old fracture. The patient is planned to be transferred to our physiotherapy unit on the morning of 07/05/18. Please note that this is a short summary of the patient's hospital stay. Please refer to further medical records for details. TIME SPENT: Approximately 45 minutes was spent on the patient's transfer. [id number]/[facility] #: [id number] [facility]
[2018-07-05] MEDS: Acetaminophen TAB* 325 MG PO SCH (05:24)
[2018-07-05 07:23] VITALS: BP 133/67
[2018-07-05] MEDS: Magnesium Hydroxide LIQ* 30 ML UDC PO SCH (07:56)
[2018-07-05] MEDS: Docusate CAP* 100 MG PO SCH (07:56)
[2018-07-05] MEDS: Lisinopril TAB* 10 MG PO SCH (07:56)
[2018-07-05] MEDS: FLUoxetine CAP* 20 MG PO SCH (07:56)
[2018-07-05] MEDS: Polyethylene Glycol 3350* 17 GM PACKET PO SCH (07:56)
== END 2018-07-05 08:40 | DRG 552 ==
LOC: ED 08:51 → MEDTELE 17:52 → OBSVTOIN 07-03 16:00
PROVIDERS: ADMIT Student in an Organized Health Care Education/Training Program; ATTEND Internal Medicine
DX: S32.028A Other fracture of second lumbar vertebra, initial encounter for closed fracture (principal); M97.31XA Periprosthetic fracture around internal prosthetic right shoulder joint, initial encounter; I50.30 Unspecified diastolic (congestive) heart failure; S32.038A Other fracture of third lumbar vertebra, initial encounter for closed fracture; I11.0 Hypertensive heart disease with heart failure; S32.048A Other fracture of fourth lumbar vertebra, initial encounter for closed fracture; W18.30XA Fall on same level, unspecified, initial encounter; E78.5 Hyperlipidemia, unspecified; I34.0 Nonrheumatic mitral (valve) insufficiency; G25.0 Essential tremor; E83.42 Hypomagnesemia; D72.829 Elevated white blood cell count, unspecified; M25.562 Pain in left knee; F32.9 Major depressive disorder, single episode, unspecified; M19.90 Unspecified osteoarthritis, unspecified site; Y92.002 Bathroom of unspecified non-institutional (private) residence as the place of occurrence of the external cause; Z96.652 Presence of left artificial knee joint; Z96.612 Presence of left artificial shoulder joint; Z79.899 Other long term (current) drug therapy; Z88.2 Allergy status to sulfonamides; Z82.49 Family history of ischemic heart disease and other diseases of the circulatory system; Z80.8 Family history of malignant neoplasm of other organs or systems; I25.2 Old myocardial infarction
CPT/HCPCS: 36415; 70450; 71046; 72125; 72131; 80048; 80053; 81003; 81015; 83605; 83735; 84443; 84484; 85025; 85610; 87086; 93005; 99284; A9270-GY; G0378; G8978-GP-CJ; G8979-GP-CI; G8987-GO-CK; G8988-GO-CI; J1650; J1885; J3475

== ENCOUNTER 2018-07-05 06:39 | Inpatient (IN) | payer MEDICARE, BC ==
[2018-07-05] MEDS ORDERED: Magnesium Hydroxide LIQ* 30 ML UDC PO PRN (11:39)
[2018-07-05] MEDS ORDERED: Acetaminophen TAB* 325 MG PO PRN (11:39)
[2018-07-05] MEDS ORDERED: Senna TAB PO PRN (11:39)
--- NOTE | 2018-07-05 12:29 | PMRUTEAM ---
PMRU: Team Meeting Current Status: Nursing: Current Status Skin Deviations [RUE] Bruise Skin Deviations [R mid and Bruise lower back] Skin Deviation Description [ appears old/healing, scattered light purple/blue/ RUE] yellow Skin Deviation Description [R appears old/healing, scattered light purple/blue/ mid and lower back] yellow Physical Therapy: Current Status Bed Mobility Assistance Min Assist Transfer Mobility Assistance Contact Guard Assist Ambulation Assistance Contact Guard Assist 100 feet Ambulation Assistive Devices Straight Cane Stairs Assistance Not tested Stairs Recommended Devices Two Rails Number of Stairs 3 Occupational Therapy: Current Status Upper Body Dressing Mod Assist Lower Body Dressing Contact Guard Assist Bathing Mod Assist Toileting Contact Guard Assist Toilet Transfer Supervision Shower Transfer Supervision Eating Supervision Goals: PHYSICAL THERAPY: Mod Independent transfers, Mod Independent ambulation 150 feet with straight cane, Mod Independent 5 stairs with rail and cane OCCUPATIONAL THERAPY: Mod Assist UB dressing, Mod Independent LB dressing, independent toileting, independent toilet transfers Care Plan: Self administer medications. Know precautions. Medicine Note: Length of Stay: 3 days Anticipated Discharge Destination: Tentative Discharge Date: 07/08/18 Discharged to: Home
[2018-07-05] MEDS: oxyCODONE/Acetamin 5/325 MG* TAB PO PRN ×2 (13:27→20:45)
[2018-07-05] MEDS: Atorvastatin* 20 MG TAB PO SCH (17:55)
[2018-07-05] MEDS: Enoxaparin(*) 40 MG/0.4 ML SYR SUBCUT SCH (17:56)
--- NOTE | 2018-07-05 20:20 | HP ---
ADMISSION HISTORY AND PHYSICAL: DATE OF ADMISSION: 07/05/18 REASON FOR ADMISSION: Right humerus failure. HISTORY OF PRESENT ILLNESS: Dayana Plascencia is an 87-year-old female. She has a medical history significant for a left total knee replacement, which she had in April of this year. She did very well after the total knee replacement and went home. She was doing well at home. Her suture line was healing well. On 07/02/18, she stood on a scale in the bathroom and as she backed up off the scale, she lost her balance and fell on to her right arm. She had a lot of pain in her right arm after the fall. Her called EMS. The patient was evaluated in the emergency room. She had a CAT scan of her right upper extremity that showed a nondisplaced, periprosthetic fracture adjacent to the humeral prosthesis as described. She had had a previous reverse right total shoulder replacement. She also had a lumbar spine CAT scan that showed fractures of the right L2, L3, and L4 transverse processes. The patient was evaluated by Dr. Cee who had done her previous knee replacement and did a consult regarding her right humerus fracture. It was decided to treat the fracture conservatively. The patient was made nonweightbearing on the right arm and placed in a splint. She is now being admitted for inpatient rehab, so that she might return to independent living. PAST MEDICAL HISTORY: Significant for the aforementioned left total knee replacement in April of this year. Last year, she had a right total knee replacement. She also has a history of reverse right total shoulder replacement. She has had a left shoulder arthroscopy. She has hypertension, hypertension, and essential tremor as well as depression. MEDICATIONS: Current medications include: 1. Lipitor. 2. Lovenox. 3. Prozac. 4. Lisinopril. 5. Percocet. 6. Mysoline. ALLERGIES: The patient has allergies to SULFA DRUGS. SOCIAL HISTORY: She is a nonsmoker. She does have a glass of wine nightly. She lives with her in a [address]-elv[address] house. There are no steps to enter. REVIEW OF SYSTEMS: The patient reports no current shortness of breath or chest pain, otherwise review of systems was normal. PHYSICAL EXAMINATION VITAL SIGNS: The patient's temperature is 97.9, blood pressure is 133/78, pulse 80, respirations 16. HEENT: Her extraocular movements are intact. Tongue is midline. NECK: Supple. LUNGS: Sound clear to auscultation bilaterally. HEART: Heart sounds are regular. S1, S2 are audible. ABDOMEN: Soft and nontender. EXTREMITIES: Her right upper extremity is in a sling. Her both knees were examined and have scars that are well healed. Calves were nontender. NEUROLOGIC: The patient is awake, alert, oriented. Sensation was intact. She could wiggle the fingers of her right hand without difficulty. Muscle strength was 5/5 except the right upper extremity, which was immobilized. FUNCTIONAL EXAM: She transfers with contact guard. ASSESSMENT: Right periprosthetic humerus fracture in a patient with a previous right reverse total shoulder replacement and left total knee replacement recently. PLAN: We are going to integrate her into a comprehensive and therapeutic rehab program with the following goals: 1. Physical Therapy will see with the patient. They are going to work on functional transfer training, ambulation training with a walker. 2. Occupational Therapy will see the patient, work on her activities of daily living including toileting and toilet transfers. 3. Lovenox for DVT prophylaxis. 4. Adequate analgesia. 5. Her bowels will be regulated. 6. We will continue Mysoline for her tremors. 7. Continue Prozac for depression. 8. Engineer Process will be closely involved to make sure that any services and equipment the patient requires are in place prior to discharge. 9. Family training as appropriate. 10. Home with appropriate services. ESTIMATED LENGTH OF STAY: One week. [id number]/[facility] #: [id number] MARCY
[2018-07-05] MEDS: Primidone TAB(*) 50 MG PO SCH (20:45)
[2018-07-05] MEDS: Docusate CAP* 100 MG PO SCH (20:48)
[2018-07-06 04:48] LABS: ABS Basophils 0.1 10^3/ul (0-0.2); ABS Eosinophils 0.1 10^3/ul (0-0.6); ABS Lymphocytes 1.6 10^3/ul (1.0-4.8); ABS Monocytes 0.5 10^3/ul (0-0.8); ABS Neutrophils 2.2 10^3/ul (1.5-7.7); Eosinophil % 2.8 %; Hematocrit 28 % (35-47); Hemoglobin 9.4 g/dL (12.0-16.0); Lymphocyte % 35.9 %; Mean Corpuscular HGB Conc 33 g/dL (31-36); Mean Corpuscular Hemoglobin 30 pg (27-31); Mean Corpuscular Volume 91 fL (80-97); Mean Platelet Volume 8.3 fL (7.4-10.4); Platelet Count 151 10^3/uL (150-450); Red Blood Count 3.12 10^6 /uL (3.70-4.87); Red Cell Distribution Width 15 % (10.5-15); White Blood Count 4.4 10^3/uL (3.5-10.8)
[2018-07-06 05:06] LABS: Albumin 3.4 g/dL (3.2-5.2); Albumin/Globulin Ratio 1.5 (1-3); BUN/Creatinine Ratio 20.8 (8-20); Calcium 8.7 mg/dL (8.6-10.3); EGFR African American 132.3 (>60); EGFR Non-African American 109.4 (>60); Globulin 2.3 g/dL (2-4); Potassium 4.1 mmol/L (3.5-5.0); Total Bilirubin 0.4 mg/dL (0.2-1.0); Total Protein 5.7 g/dL (6.4-8.9)
[2018-07-06] MEDS: Polyethylene Glycol 3350* 17 GM PACKET PO SCH (08:17)
[2018-07-06] MEDS: Docusate CAP* 100 MG PO SCH ×2 (08:17→20:40)
[2018-07-06] MEDS: FLUoxetine CAP* 20 MG PO SCH (08:20)
[2018-07-06] MEDS: oxyCODONE/Acetamin 5/325 MG* TAB PO PRN ×3 (08:21→18:46)
[2018-07-06] MEDS: Lisinopril TAB* 10 MG PO SCH (08:21)
[2018-07-06] MEDS: Atorvastatin* 20 MG TAB PO SCH (17:34)
[2018-07-06] MEDS: Enoxaparin(*) 40 MG/0.4 ML SYR SUBCUT SCH (17:34)
--- NOTE | 2018-07-06 19:19 | PN ---
Progress Note Date of Service: 07/06/18 Note: NITIN ESPINAL was visited. Therapy notes read and reviewed. She notes a bit of pain in her right humerus but otherwise doing ok. No BM today Current Medications: Active Medications Generic Name Dose Route Start Last Admin Trade Name Freq PRN Reason Stop Dose Admin Acetaminophen 650 mg 07/05/18 11:39 Tylenol Tab* PO Q6H PRN FEVER/PAIN Atorvastatin Calcium 20 mg 07/05/18 17:00 07/06/18 17:34 Lipitor* PO 20 mg 1700 DAVID Administration Docusate Sodium 100 mg 07/05/18 21:00 07/06/18 08:17 Colace Cap* PO Not Given BID DAVID Enoxaparin Sodium 40 mg 07/05/18 18:00 07/06/18 17:34 Lovenox(*) SUBCUT 40 mg Q24H DAVID Administration Fluoxetine HCl 40 mg 07/06/18 09:00 07/06/18 08:20 Prozac Cap* PO 40 mg DAILY [facility]ID Administration Lisinopril 10 mg 07/06/18 09:00 07/06/18 08:21 Prinivil Tab* PO 10 mg DAILY [facility]ID Administration Magnesium Hydroxide 30 ml 07/05/18 11:39 Milk Of Magnesia Liq* PO Q6H PRN CONSTIPATION Oxycodone/Acetaminophen 1 tab 07/05/18 11:52 07/06/18 18:46 Percocet 5/325 Tab* PO 1 tab Q4H PRN Administration PAIN - MODERATE TO SEVERE Polyethylene Glycol/Electrolytes 17 gm 07/06/18 09:00 07/06/18 08:17 Miralax* PO Not Given DAILY DAVID Primidone 150 mg 07/05/18 21:00 07/05/18 20:45 Mysoline Tab(*) PO 150 mg BEDTIME DAVID Administration Senna 2 tab 07/05/18 11:39 Senokot Tab* PO BEDTIME PRN CONSTIPATION Vital Signs: Vital Signs Temp Pulse Resp BP Pulse Ox 98.4 F 80 18 126/72 100 07/06/18 16:23 07/06/18 16:23 07/06/18 18:46 07/06/18 16:23 07/06/18 16:23 Lab Results: Laboratory Results - last 24 hr 07/06/18 07/06/18 04:41 04:41 WBC 4.4 RBC 3.12 L Hgb 9.4 L Hct 28 L MCV 91 MCH 30 MCHC 33 RDW 15 Plt Count 151 MPV 8.3 Neut % (Auto) 49.6 Lymph % (Auto) 35.9 [place] % (Auto) 10.6 Eos % (Auto) 2.8 Baso % (Auto) 1.1 Absolute Neuts (auto) 2.2 Absolute Lymphs (auto) 1.6 Absolute Monos (auto) 0.5 Absolute Eos (auto) 0.1 Absolute Basos (auto) 0.1 Absolute Nucleated RBC 0.0 Nucleated RBC % 0.0 Sodium 139 Potassium 4.1 Chloride 106 Carbon Dioxide 30 Anion Gap 3 BUN 11 Creatinine 0.53 Est GFR ( Amer) 132.3 Est GFR (Non-Af Amer) 109.4 BUN/Creatinine Ratio 20.8 H Glucose 92 Calcium 8.7 Total Bilirubin 0.40 AST 24 ALT 18 Alkaline Phosphatase 61 Total Protein 5.7 L Albumin 3.4 Globulin 2.3 Albumin/Globulin Ratio 1.5 Exam: GENERAL: No distress LUNGS: Clear bilaterally HEART: Reg rhythm ABDOMEN: Soft, +BS EXTREMITIES: RUE in sling NEUROLOGIC: Sensation intact. Able to wiggle fingers of right hand, flex wrist and extend wrist Assessment/Plan: 1. Right humerus fracture: Sling. NWB RUE PT/OT 2. Left TKR April,: PT/OT 3. Hypertension: Lisinopril 4. Essential Tremor: Mysoline 5. DVT Prophylaxis: Lovenox 6. Advance Directives: Full code 07/06/18 19:18 07/06/18 19:20
[2018-07-06] MEDS: Primidone TAB(*) 50 MG PO SCH (20:36)
[2018-07-07] MEDS: oxyCODONE/Acetamin 5/325 MG* TAB PO PRN ×3 (04:16→14:18)
[2018-07-07] MEDS: Lisinopril TAB* 10 MG PO SCH (08:56)
[2018-07-07] MEDS: FLUoxetine CAP* 20 MG PO SCH (08:56)
[2018-07-07] MEDS: Docusate CAP* 100 MG PO SCH ×2 (09:00→21:14)
[2018-07-07] MEDS: Polyethylene Glycol 3350* 17 GM PACKET PO SCH (09:00)
[2018-07-07] MEDS: Atorvastatin* 20 MG TAB PO SCH (17:59)
[2018-07-07] MEDS: Enoxaparin(*) 40 MG/0.4 ML SYR SUBCUT SCH (17:59)
--- NOTE | 2018-07-07 18:45 | PN ---
Progress Note Date of Service: 07/07/18 Note: NITIN ESPINAL was visited. Therapy notes read and reviewed. She has some pain in her arm but otherwise seems ready for discharge tomorrow. Will follow up with Dr. Cee Current Medications: Active Medications Generic Name Dose Route Start Last Admin Trade Name Freq PRN Reason Stop Dose Admin Acetaminophen 650 mg 07/05/18 11:39 Tylenol Tab* PO Q6H PRN FEVER/PAIN Atorvastatin Calcium 20 mg 07/05/18 17:00 07/07/18 17:59 Lipitor* PO 20 mg 1700 DAVID Administration Docusate Sodium 100 mg 07/05/18 21:00 07/07/18 09:00 Colace Cap* PO Not Given BID DAVID Enoxaparin Sodium 40 mg 07/05/18 18:00 07/07/18 17:59 Lovenox(*) SUBCUT 40 mg Q24H DAVID Administration Fluoxetine HCl 40 mg 07/06/18 09:00 07/07/18 08:56 Prozac Cap* PO 40 mg DAILY DAVID Administration Lisinopril 10 mg 07/06/18 09:00 07/07/18 08:56 Prinivil Tab* PO 10 mg DAILY DAVID Administration Magnesium Hydroxide 30 ml 07/05/18 11:39 Milk Of Magnesia Liq* PO Q6H PRN CONSTIPATION Oxycodone/Acetaminophen 1 tab 07/05/18 11:52 07/07/18 14:18 Percocet 5/325 Tab* PO 1 tab Q4H PRN Administration PAIN - MODERATE TO SEVERE Polyethylene Glycol/Electrolytes 17 gm 07/06/18 09:00 07/07/18 09:00 Miralax* PO Not Given DAILY DAVID Primidone 150 mg 07/05/18 21:00 07/06/18 20:36 Mysoline Tab(*) PO 150 mg BEDTIME DAVID Administration Senna 2 tab 07/05/18 11:39 Senokot Tab* PO BEDTIME PRN CONSTIPATION Vital Signs: Vital Signs Temp Pulse Resp BP Pulse Ox 97.6 F 79 16 97/63 100 07/07/18 15:50 07/07/18 15:50 07/07/18 16:18 07/07/18 15:50 07/07/18 15:50 Exam: GENERAL: No distress LUNGS: Clear bilaterally HEART: Reg rhythm ABDOMEN: Soft, +BS EXTREMITIES: RUE in sling NEUROLOGIC: Sensation intact. Able to wiggle fingers of right hand, flex wrist and extend wrist Assessment/Plan: 1. Right humerus fracture: Sling. NWB RUE PT/OT 2. Left TKR April,: PT/OT 3. Hypertension: Lisinopril 4. Essential Tremor: Mysoline 5. DVT Prophylaxis: Lovenox 6. Advance Directives: Full code 07/07/18 18:45
[2018-07-07] MEDS: Primidone TAB(*) 50 MG PO SCH (21:13)
[2018-07-08] MEDS: oxyCODONE/Acetamin 5/325 MG* TAB PO PRN ×3 (01:47→11:53)
[2018-07-08 05:58] VITALS: BP 126/67
[2018-07-08] MEDS: FLUoxetine CAP* 20 MG PO SCH (08:22)
[2018-07-08] MEDS: Lisinopril TAB* 10 MG PO SCH (08:22)
[2018-07-08] MEDS: Docusate CAP* 100 MG PO SCH (08:24)
[2018-07-08] MEDS: Polyethylene Glycol 3350* 17 GM PACKET PO SCH (08:24)
--- NOTE | 2018-07-08 17:23 | DS ---
CC: Dr. Jeff Desai * DISCHARGE SUMMARY: DATE OF ADMISSION: 07/05/18 DATE OF DISCHARGE: 07/08/18 DISCHARGE DIAGNOSES: 1. Right humerus. 2. Transverse process fractures, L2, L3, and L4 vertebrae. 3. Left total knee replacement, April 2018. 4. History of reverse right total shoulder replacement. 5. Right total knee replacement, remote. 6. Hypertension. 7. Essential tremor. HISTORY OF PRESENT ILLNESS AND HOSPITAL COURSE: For a complete history of the events leading up to her rehab stay, please see the history and physical dictated by me on 07/05/18. While on the rehab unit, the patient remained stable from a medical point of view. She was maintained on Lovenox for DVT prophylaxis. The patient received adequate analgesia with oral analgesics. The patient otherwise was medically stable. She was seen by both Physical and Occupational Therapy and did well with both disciplines. With physical therapy , at the time of admission, the patient required mod assist for bed mobility, supervision for transfers, supervision for ambulating. With occupational therapy, at the time of admission, the patient required mod assist for upper body dressing, min assist for lower body dressing, mod assist for bathing, supervision toileting, supervision for toilet transfers. By the time of discharge, the patient was independent for transfers, independent ambulating 1000 feet with a straight cane, independent going up and down a flight of stairs , supervision for tub transfers. She did require assistance for upper body dressing as well as lower body socks and shoes. She was independent with toileting and toilet transfers. The patient was discharged home on 07/08/18. DISCHARGE DIET: Regular. DISCHARGE MEDICATIONS: 1. Lisinopril 10 mg daily. 2. Prozac 40 mg daily. 3. Lipitor 20 mg daily. 4. Primidone 150 mg at bedtime. 5. Percocet 1 tablet every 4 hours as needed, not to exceed 4 tablets per day. 6. She can also take Colace 100 mg twice daily. 7. Senokot 2 tablets at bedtime. SERVICES AFTER DISCHARGE: Through the visiting nurse service, she will have shelter and home physical therapy. CONDITION AT DISCHARGE: The patient was discharged home in good condition. FOLLOWUP: Follow up with Dr. Saadia Cee in 1 week. She will follow up with Dr. Jeff Desai, her primary care doctor, as needed. [id number]/[facility] #: [id number] MARCY
== END 2018-07-08 11:40 | disposition home health service (06) | DRG 560 ==
LOC: PMRU 08:44
PROVIDERS: ADMIT Physical Medicine & Rehabilitation; ATTEND Physical Medicine & Rehabilitation
PROC: F07Z5ZZ Bed Mobility Treatment (ICD-10-PCS; principal; 2018-07-05)
PROC: F07Z9ZZ Gait Training/Functional Ambulation Treatment (ICD-10-PCS; 2018-07-05)
PROC: F07Z8ZZ Transfer Training Treatment (ICD-10-PCS; 2018-07-05)
PROC: F08Z0ZZ Bathing/Showering Techniques Treatment (ICD-10-PCS; 2018-07-05)
PROC: F08Z1ZZ Dressing Techniques Treatment (ICD-10-PCS; 2018-07-05)
PROC: F08Z3ZZ Feeding/Eating Treatment (ICD-10-PCS; 2018-07-05)
DX: S42.301D Unspecified fracture of shaft of humerus, right arm, subsequent encounter for fracture with routine healing (principal); F33.9 Major depressive disorder, recurrent, unspecified; M97.31XD Periprosthetic fracture around internal prosthetic right shoulder joint, subsequent encounter; S32.029D Unspecified fracture of second lumbar vertebra, subsequent encounter for fracture with routine healing; S32.039D Unspecified fracture of third lumbar vertebra, subsequent encounter for fracture with routine healing; S32.049D Unspecified fracture of fourth lumbar vertebra, subsequent encounter for fracture with routine healing; W18.30XD Fall on same level, unspecified, subsequent encounter; Z96.653 Presence of artificial knee joint, bilateral; Z96.611 Presence of right artificial shoulder joint; I10 Essential (primary) hypertension; G25.0 Essential tremor; Z79.899 Other long term (current) drug therapy; Z88.2 Allergy status to sulfonamides
CPT/HCPCS: 36415; 80053; 85025; A9270-GY; J1650

== ENCOUNTER 2019-04-18 07:26 | Inpatient (IN) | payer MEDICARE, BC ==
[2019-04-18] MEDS ORDERED: ceFAZolin VIAL 1 GM in NS *SYRINGE * * 10 ML ONE (08:00)
[2019-04-18] MEDS ORDERED: ceFAZolin 2 GM in NS 100 ml - ONCE (Pharmacy Admix) IVPB ONE (08:00)
[2019-04-18] MEDS ORDERED: Diazepam TAB(*) 5 MG ONE (08:16)
[2019-04-18] MEDS ORDERED: Midazolam* 1 MG/ML 5 ML VIAL (5 MG) ONE ×2 (08:33→16:53)
[2019-04-18] MEDS ORDERED: fentaNYL* 50 MCG/ML 2 ML VIAL (100 MCG VIAL) ONE ×2 (08:33→16:53)
[2019-04-18] MEDS ORDERED: Lidocaine 1% INJ* 10 MG/ML 30 ML SDV ONE ×2 (08:33→16:26)
[2019-04-18] MEDS ORDERED: Acetaminophen TAB* 325 MG PO PRN (09:53)
[2019-04-18] MEDS ORDERED: oxyCODONE/Acetamin 5/325 MG* TAB PO PRN (09:53)
[2019-04-18] MEDS ORDERED: Furosemide IV* 10 MG/ML 2 ML VIAL (20 MG) IV ONE (15:53)
[2019-04-18] MEDS ORDERED: Furosemide IV* 10 MG/ML 2 ML VIAL (20 MG) ONE (15:57)
[2019-04-18] MEDS ORDERED: Nitroglycerin TAB 0.4 MG* 0.4 MG TAB SL ONE (15:57)
[2019-04-18] MEDS ORDERED: Nitroglycerin TAB 0.4 MG* 0.4 MG TAB ONE (15:58)
[2019-04-18] MEDS ORDERED: Diazepam TAB(*) 5 MG PO PRN (16:21)
[2019-04-18] MEDS ORDERED: diPHENhydraMINE PO* 25 MG PO PRN (16:21)
[2019-04-18] MEDS ORDERED: Heparin(*) 1000 UNIT/ML 10 ML VIAL CATH LAB IV ONE (16:26)
[2019-04-18] MEDS ORDERED: nitroGLYCERIN DRIP* 0 MCG/0 ML BTL ONE (16:26)
[2019-04-18] MEDS ORDERED: VERAPAMIL 2.5 MG/ML 2 ML VIAL ** 5 mg/2 ml ONE (16:26)
[2019-04-18] MEDS ORDERED: Heparin 2 UNITS/ML IVPREMIX* 2,000 ML IV ONE (16:26)
[2019-04-18] MEDS ORDERED: Iohexol 350 (CONTRAST) 200 ML MDV IV ONE (16:27)
[2019-04-18] MEDS ORDERED: NS 0.9% 1000 ML** 1,000 ML IV SCH ×2 (16:30→17:30)
[2019-04-18 16:45] LABS: Hematocrit 35 % (35-47); Mean Corpuscular HGB Conc 34 g/dL (31-36); Mean Corpuscular Hemoglobin 33 pg (27-31); Mean Corpuscular Volume 96 fL (80-97); Mean Platelet Volume 9.4 fL (7.4-10.4); Platelet Count 139 10^3/uL (150-450); Red Cell Distribution Width 14 % (10-15); White Blood Count 7.8 10^3/uL (3.5-10.8)
[2019-04-18 16:53] LABS: Activated Partial Thrombo Time 28.6 seconds (26.0-38.0); INR 1.11 (0.82-1.09)
[2019-04-18 17:03] LABS: ALT 44 U/L (7-52); AST 40 U/L (13-39); Albumin 4.1 g/dL (3.2-5.2); Albumin/Globulin Ratio 1.6 (1-3); Alkaline Phosphatase 94 U/L (34-104); Anion Gap 11 mmol/L (2-11); BUN/Creatinine Ratio 21.7 (8-20); Blood Urea Nitrogen 13 mg/dL (6-24); CO2 Carbon Dioxide 25 mmol/L (22-32); Calcium 9.1 mg/dL (8.6-10.3); Chloride 102 mmol/L (101-111); Creatine Kinase 90 U/L (10-223); EGFR African American 114.4 (>60); EGFR Non-African American 94.6 (>60); Globulin 2.5 g/dL (2-4); Glucose 105 mg/dL (70-100); LDL Cholesterol Direct 68 mg/dL; Potassium 3.7 mmol/L (3.5-5.0); Sodium 138 mmol/L (135-145); Total Protein 6.6 g/dL (6.4-8.9)
[2019-04-18 17:07] LABS: Myoglobin 48.1 ng/mL (14.3-65.8)
[2019-04-18 17:09] LABS: CKMB ng/mL 5.6 ng/mL (0.6-6.3); Troponin I 0.32 ng/mL (<0.03)
[2019-04-18] MEDS ORDERED: Aspirin TAB* 325 MG ONE (17:31)
[2019-04-18] MEDS ORDERED: Clopidogrel TAB* 300 MG PO ONE (17:34)
[2019-04-18] MEDS: Metoprolol Tartrate TAB* 25 MG PO SCH (17:52)
[2019-04-18] MEDS: ceFAZolin VIAL(*) 1 GM in NS 0.9% 50 ML* 50 ML IVPB SCH (18:33)
--- NOTE | 2019-04-18 19:01 | ECHO ---
*[facility]* [place] [address] Fax #: [phone] Transthoracic Echocardiogram Patient: Dayana Plascencia : 1930 Study Date: 04/18/2019 Age: 88 Gender: F HR: 77 bpm Height: 60 in /152.4 cm BSA: 1.45 m^2 Weight: 110.8 lb /50.3 kg BMI: 21.7 kg/m^2 *Janitor Supervisor: * Elizabeth Guevara *Referring Physician: * Mayito Maria MD *Reading Physician: * Mayito Maria MD Indications: Chest Pain, unspecified. History: Labs, prior tests, procedures, and surgery: Currently implanted device: permanent pacemaker. Conclusions Summary: - Left ventricle: Systolic function is normal. The estimated ejection fraction is 40-45%. Akinesis of the anteroseptal myocardium. Hypokinesis of the apical myocardium. Severe hypokinesis; in the distribution of the left anterior descending coronary artery. - Mitral valve: Appears moderately calcified. The leaflets are mildly thickened. There is moderate to severe regurgitation. - Aortic valve: There is no evidence of stenosis. - Tricuspid valve: There is mild regurgitation. - Pulmonary arteries: Systolic pressure is within the normal range, estimated to be 32 mm Hg. - Compared to study of 04/13/2019, the left ventricle wall motion abnormalities are new. Mitral regurgitation is the same. Study data: Transthoracic echocardiogram. Procedure: Transthoracic echocardiography was performed. Image quality was good. Complete 2D, spectral Doppler, and color flow Doppler. Location: Bedside. Patient status: Inpatient. Patient room number: 447-2. Study status: Stat. Rhythm: Paced rhythm. Findings Left ventricle: The cavity size is normal. Systolic function is normal. The estimated ejection fraction is 40-45%. Regional wall motion abnormalities: Akinesis of the anteroseptal myocardium. Hypokinesis of the apical myocardium. Severe hypokinesis; in the distribution of the left anterior descending coronary artery. Left ventricular diastolic function parameters are normal. Right ventricle: The cavity size is normal. Systolic function is normal. Ventricular septum: The ventricular septum is normal. Left atrium: The atrium is dilated. Right atrium: The atrium is dilated. Atrial septum: No defect or patent foramen ovale is identified. Mitral valve: Appears moderately calcified. The leaflets are mildly thickened. There is no evidence of stenosis. There is moderate to severe regurgitation. Aortic valve: The valve is trileaflet. The leaflets are mildly calcified. There is no evidence of stenosis. There is no significant regurgitation. Tricuspid valve: The leaflets are normal thickness. There is no evidence of stenosis. There is mild regurgitation. Pulmonic valve: The valve is structurally normal. There is no evidence of stenosis. There is trace regurgitation. Aorta: The aortic root appears normal. The aortic arch appears normal. Pericardium: A pericardial effusion cannot be excluded. Pulmonary arteries: Systolic pressure is within the normal range, estimated to be 32 mm Hg. Systemic veins: Inferior vena cava: The vessel is normal in size. There is (>= 50%) respiratory change in the IVC dimension. Pulmonary veins: The Pulmonary veins appear normal. Measurements Left ventricle Value Ref Aortic valve Value Ref CHARLIE, LAX 4.8 cm 3.8 - Peak v, S 1.36 m/sec ----- 5.2 VTI, S 31.9 cm ----- ESD, LAX 3.5 cm 2.2 - Mean grad, S 4.0 mm Hg ----- 3.5 Peak grad, S 7.0 mm Hg ----- FS, LAX 27 % 27 - 45 MARI, VTI 2.45 cm^2 ----- PW, ED, LAX (H) 1.2 cm 0.6 - MARI, Vmax 2.52 cm^2 ----- 0.9 FS 27 % 27 - 45 Mitral valve Value Ref Mid-wall FS 12 % -------- Peak E 1.01 m/sec ----- PW, ED (H) 1.2 cm 0.6 - Peak A 1.01 m/sec ----- 0.9 Decel time 169 ms ----- PW/ID, ED 0.26 -------- Peak grad, D 4.1 mm Hg ----- E', lat rylie, TDI (L) 7.8 cm/sec >=10.0 Peak E/A ratio 1 ----- E/e', lat rylie, TDI 13 -------- E', med rylie, TDI (L) 4.6 cm/sec >=7.0 Pulmonic valve Value Ref E/e', med rylie, TDI 22 -------- Peak v, S 0.77 m/sec --- -- E', avg, TDI 6.2 cm/sec -------- Peak grad, S 2.0 mm Hg --- -- E/e', avg, TDI (H) 16 <=14 Tricuspid valve Value Ref LVOT Value Ref TR peak v 2.66 m/sec <=2.8 Diam, S 2.00 cm -------- Peak RV-RA grad, S 28 mm Hg ----- Area 3.1 cm^2 -------- Max TR kit 2.63 m/sec ----- Peak kit, S 1.09 m/sec -------- Mean grad, S 3 mm Hg -------- Aortic root Value Ref SV 78 ml -------- Root diam 3.3 cm <3.7 Ventricular septum Value Ref Ascending aorta Value Ref IVS, ED (H) 1.1 cm 0.6 - AAo AP diam, S 3.0 cm ----- 0.9 Aortic arch Value Ref Right ventricle Value Ref Arch diam 2.2 cm ----- CHARLIE, LAX 2.1 cm -------- CHARLIE minor ax, A4C (H) 3.8 cm 1.9 - Inferior vena cava Value Ref mid 3.5 Diam 1.8 cm ----- Left atrium Value Ref ML dim, A4C 4.9 cm -------- SI dim, A4C 6.4 cm -------- Vol/bsa, ES, 1-p 38 ml/m^2 11 - 40 A4C Vol/bsa, ES, A/L (H) 62 ml/m^2 16 - 34 Right atrium Value Ref SI dim, ES (H) 5.5 cm 3.4 - 5.3 ML dim, ES, A4C (H) 5.0 cm 2.6 - 4.4 SI dim, ES, A4C (H) 5.5 cm 3.4 - 5.3 Legend: (L) and (H) shakir values outside specified reference range. Prepared and electronically signed by Mayito Maria MD 04/18/2019 19:01
[2019-04-18 19:53] LABS: Troponin I 0.76 ng/mL (<0.03)
--- NOTE | 2019-04-18 20:28 | CARD ---
CRITICAL CARE NOTE: DATE OF SERVICE: 04/18/19 - ROOM #ICU-01 One hour critical care. HISTORY: The patient is an 88-year-old female who underwent dual-chamber pacemaker implantation by myself this morning for third degree heart block. She does have a known history of [id number] mitral regurgitation. The patient was doing well on the floor until around 2 o'clock when she started having some shortness of breath. The patient was repositioned in her chair and felt some relief of her symptoms. I was called to see her around 4 o'clock in the afternoon because of the sudden onset of diaphoresis, chest pain, shortness of breath. On my arrival, the patient was having some mild shortness of breath. She was diaphoretic. She was complaining of anterior chest pain. Her rhythm strip showed AV paced and could not be interpreted for ischemia. At that time, her heart rate was 80 beats per minute, her blood pressure was 180/ 92. PHYSICAL EXAMINATION: The patient's carotids were normal. There were no bruits on exam. JVD was 5 cm in upright position. Cardiac Exam: S1, S2 with a 3/6 systolic ejection murmur heard best at the apex. PMI is normal. Lungs had rales in the one- third up bilaterally. Abdomen: Soft, nontender, nondistended with normoactive bowel sounds. Extremities: Showed 2+ edema. The patient was awake, alert and oriented. Her pacemaker site was stable. PLAN: I had called for an emergent echocardiogram to evaluate for possible pericardial effusion. Her echocardiogram showed no evidence of pericardial effusion, but did show a large anterior apical wall motion abnormality with an ejection fraction of 35%. The patient had an echocardiogram on 04/13/19 just 5 days ago which showed normal LV size and systolic function. Ejection fraction of 55%. Again, she has moderate to severe mitral regurgitation. At that time, I called a STEMI alert because of her chest pain, wall motion abnormalities. The patient was given IV Lasix, sublingual nitroglycerin and aspirin. The patient was ultimately transported to the cardiac director of cath lab for urgent cardiac catheterization. The patient was stable when she left the floor to go to the cardiac catheterization lab. Again, a total of 1 hour of critical care time. [id number]/[facility] #: [id number] [facility]
[2019-04-18] MEDS: Atorvastatin* 20 MG TAB PO SCH (20:43)
[2019-04-18] MEDS: Primidone 50 mg TAB (*) PO SCH (20:43)
[2019-04-19] MEDS: ceFAZolin VIAL(*) 1 GM in NS 0.9% 50 ML* 50 ML IVPB SCH ×2 (01:05→09:17)
[2019-04-19] MEDS: Metoprolol Tartrate TAB* 25 MG PO SCH ×4 (01:05→17:48)
[2019-04-19] MEDS ORDERED: NS 0.9% 500 ML* 500 ML IV ONE (03:06)
--- NOTE | 2019-04-19 03:17 | CATH ---
CC: Dr. Desai; Dr. Maria * CATH REPORT: DATE OF PROCEDURE: 04/18/19 - ROOM #ICU-01 PRIMARY CARE PHYSICIAN: Dr. Desai. VOCATIONAL EXAMINER: Dr. Maria. HISTORY: An 88-year-old women with mild luminal LAD irregularity at prior cath who today, after a permanent pacemaker implantation, developed precordial chest pain and dyspnea. EKG is 100% paced. Echo today shows a new anteroapical wall motion abnormality compared to 5 days ago, she underwent emergent catheterization for presumptive ACS. PROCEDURE: The right radial artery was imaged with ultrasound, was 1 mm or less in diameter; therefore, the right femoral artery was utilized. A 6.5- Greenlandic sheath was placed. PROCEDURAL MEDICATIONS: 1. Subcutaneous lidocaine. 2. IV Versed. 3. IV fentanyl. DIAGNOSTIC CATHETERS: 6FR4, 6FL4. HEMODYNAMICS: Initial FA 157/87, LV 173/18, with a less than 10 mm peak to peak gradient on pull back. ANGIOGRAPHY: Right common femoral artery. Sheath entry is in segment 2, there is no stenosis. RCA: The RCA is large, dominant, supplies a moderate PDA and a number of smaller posterolaterals followed by a large distal posterolateral. Incidentally noted is a heavily mitral annular calcification in all 4 quadrants. The RCA has mild luminal irregularity. No significant stenosis. Left Main: The left main is relatively long, has no stenosis. LAD: The LAD extends past the apex, has DANIEL-3 flow, has scattered moderate calcification, has at most 20% to 30% proximal stenosis after a small diagonal branch, followed by a moderate diagonal, this was similar to the prior cath. Distal LAD has mild luminal irregularity. She has no significant LAD stenosis. Circumflex. The circumflex is not dominant, moderate with a large ramus or high first marginal, a smaller second marginal, circumflex ends with a small posterolateral. The circumflex has no stenosis. CONCLUSION: 1. No significant obstructive coronary artery disease. Based on acute anterior wall motion abnormality with a clinical setting, the likely diagnosis is takotsubo's. Serial enzymes are pending. 2. Systolic hypertension with elevated LVDP. 3. Small right radial artery, unsuitable for radial access. 4. Successful right common femoral artery access with Angio-Seal closure. [id number]/[facility] #: [id number] [facility]
--- NOTE | 2019-04-19 03:17 | OP ---
CC: Dr. Desai * DATE OF OPERATION: 04/18/19 - ROOM #ICU-01 DATE OF : 32 SURGEON: Mayito Maria MD ANESTHESIA: Local anesthesia with conscious sedation. PRE-OP DIAGNOSIS: Third-degree heart block. POST-OP DIAGNOSIS: Third-degree heart block. OPERATIVE PROCEDURE: Dual-chamber pacemaker implantation. INDICATIONS: The patient is an 88-year-old female with a history of severe mitral regurgitation, who I saw last week for routine evaluation. At that time , an echocardiogram showed normal LV size and systolic function with moderate-to -severe mitral regurgitation. Her EKG showed third-degree heart block with a narrow complex escape rhythm. The patient had described episodes of mild fatigue but did not have any syncopal episodes or lightheadedness. Dual- chamber pacemaker was recommended. ESTIMATED BLOOD LOSS: Nil. COMPLICATIONS: None. DESCRIPTION OF PROCEDURE: The patient was in a fasting state. Informed consent had been obtained prior to the procedure. All labs were reviewed. The patient was placed supine on the procedure table. Her left pectoral area was cleaned and draped in the usual fashion. 1% lidocaine was used for local anesthesia. The patient had lidocaine to the pectoral area. The axillary vein was entered via Seldinger technique using ultrasound guidance. A second guidewire was placed in the same technique. A 4-cm incision was made in the pectoral area. Blunt dissection was carried down to the pectoral fascia. A pocket was fashioned for the pacemaker. Over the first guidewire, a 7-Pashto sheath introducer was placed through which a right ventricular lead was advanced to the RV apex. The right ventricular lead is a Medtronic model 5076, serial #[id number]. It had an R-wave sensitivity of 5, impedance 600 ohms, threshold 0.5 volts at 0.5 milliseconds. The ventricular lead was sutured to the pectoral fascia. Over the second guidewire, a 7-Pashto sheath introducer was placed through which a right atrial lead was advanced to the high right atrium. The right atrial lead is a Medtronic, model 5076, serial #[id number]. P-wave sensitivity of 0.9, impedance 476 ohms, threshold 0.5 volts at 0.5 milliseconds. The atrial lead was sutured to the pectoral fascia. The pocket was flushed with antibiotic-infused normal saline. A generator was attached appropriately to the atrioventricular lead. The generator is a [employer], model W1DR01, serial #[id number]. The device was placed in the pocket. The surgical incision was closed in 3 layers. Testing after the procedure showed that there was no R wave sensitivity that could be detected and the patient was now pacemaker dependent. Atrial lead sensitivity was stable. The patient was returned to the holding area in stable condition. [id number]/[facility] #: [id number] MARCY
[2019-04-19 04:14] LABS: ABS Lymphocytes 1.2 10^3/ul (1.0-4.8); ABS Monocytes 0.6 10^3/ul (0-0.8); Eosinophil % 0.2 %; Hematocrit 32 % (35-47); Hemoglobin 10.7 g/dL (12.0-16.0); Lymphocyte % 18.3 %; Mean Corpuscular HGB Conc 34 g/dL (31-36); Mean Corpuscular Hemoglobin 32 pg (27-31); Mean Corpuscular Volume 95 fL (80-97); Mean Platelet Volume 9.2 fL (7.4-10.4); Nucleated Red Blood Cells % 0.1; Platelet Count 120 10^3/uL (150-450); Red Blood Count 3.31 10^6 /uL (3.70-4.87); Red Cell Distribution Width 14 % (10-15); White Blood Count 6.8 10^3/uL (3.5-10.8)
[2019-04-19 04:31] LABS: Anion Gap 10 mmol/L (2-11); Blood Urea Nitrogen 14 mg/dL (6-24); CO2 Carbon Dioxide 25 mmol/L (22-32); Calcium 8.2 mg/dL (8.6-10.3); Chloride 102 mmol/L (101-111); EGFR African American 112.3 (>60); EGFR Non-African American 92.8 (>60); Glucose 93 mg/dL (70-100); Potassium 3.2 mmol/L (3.5-5.0); Sodium 137 mmol/L (135-145)
[2019-04-19 04:35] LABS: Troponin I 2.94 ng/mL (<0.03)
[2019-04-19] MEDS: Potassium Chlor TAB* 20 MEQ TAB.ER PO SCH ×2 (05:04→09:41)
[2019-04-19] MEDS ORDERED: Aspirin 81 mg CHEW TAB* 81 MG TAB.CHEW PO SCH (09:00)
[2019-04-19] MEDS: Lisinopril TAB* 10 MG PO SCH (09:42)
[2019-04-19] MEDS: FLUoxetine CAP* 20 MG PO SCH (09:42)
[2019-04-19] MEDS: Clopidogrel TAB* 75 MG PO SCH (09:42)
[2019-04-19] MEDS: Primidone 50 mg TAB (*) PO SCH ×2 (09:42→21:33)
[2019-04-19] MEDS ORDERED: Potassium Chlor TAB* 10 MEQ TAB.ER PO ONE (09:44)
--- NOTE | 2019-04-19 09:44 | PN ---
Subjective Date of Service: 04/19/19 - CC: high degree HB post pacer, resolved CP Interval History: The patient denies incisional pain, sob or CP now. Did not sleep well, no specific reason given. BP low midnight, metoprolol held per nursing. Medications Active Medications: Acetaminophen (Tylenol Tab*) 650 mg PO Q4H PRN PRN Reason: PAIN - MILD Last Admin: 04/18/19 18:46 Dose: 650 mg Aspirin (Aspirin 81 Mg Chew Tab*) 81 mg PO DAILY [facility] Atorvastatin Calcium (Lipitor*) 20 mg PO BEDTIME [facility] Last Admin: 04/18/19 20:43 Dose: 20 mg Clopidogrel Bisulfate (Plavix Tab*) 75 mg PO DAILY [facility] Diazepam (Valium Tab(*)) 2.5 mg PO ONCE PRN PRN Reason: order desk caller to Prenatal Teacher Diphenhydramine HCl (Benadryl Po*) 25 mg PO ONCE PRN PRN Reason: order desk caller to Prenatal Teacher Fluoxetine HCl (Prozac Cap*) 40 mg PO DAILY [facility] Lisinopril (Prinivil Tab*) 10 mg PO DAILY [facility] Metoprolol Tartrate (Lopressor Tab*) 25 mg PO Q6H [facility] Last Admin: 04/19/19 05:04 Dose: 25 mg Oxycodone/Acetaminophen (Percocet 5/325 Tab*) 1 tab PO Q4H PRN PRN Reason: PAIN - MODERATE Primidone (Mysoline 250 Mg Tab (*)) 100 mg PO QAM DAVID Primidone (Mysoline 250 Mg Tab (*)) 150 mg PO BEDTIME [facility] Last Admin: 04/18/19 20:43 Dose: 150 mg Objective Vital Signs: Temp Pulse Resp BP Pulse Ox 99.7 F 60 16 125/74 97 04/19/19 07:00 04/19/19 07:00 04/19/19 07:27 04/19/19 07:00 04/19/19 07:00 Vital Signs - 12 hr Temp Pulse Resp BP Pulse Ox 04/19/19 07:27 16 04/19/19 07:00 99.7 F 60 17 125/74 97 04/19/19 06:31 99.5 F 60 16 116/71 97 04/19/19 06:00 99.3 F 60 18 121/73 95 04/19/19 05:30 99.1 F 61 20 124/73 95 04/19/19 05:00 99.0 F 60 20 120/70 98 04/19/19 04:45 16 95 04/19/19 04:30 99.0 F 60 18 119/66 96 04/19/19 04:00 98.8 F 60 23 120/70 98 04/19/19 03:30 99.0 F 60 16 114/67 96 04/19/19 03:00 99.0 F 60 20 103/60 95 04/19/19 02:30 99.0 F 60 16 108/71 96 04/19/19 02:00 99.0 F 60 16 94/54 93 04/19/19 01:30 99.0 F 60 16 95/58 91 04/19/19 01:00 99.0 F 60 16 90/53 98 04/19/19 00:46 98.8 F 60 15 100/58 100 04/19/19 00:30 98.4 F 63 16 90/62 100 04/19/19 00:00 98.6 F 60 17 111/60 99 04/18/19 23:30 98.6 F 61 20 134/79 100 04/18/19 23:00 98.6 F 62 20 134/81 100 04/18/19 22:30 98.6 F 60 15 133/80 98 04/18/19 22:00 98.8 F 60 14 127/76 99 Oxygen Devices in Use Now: None Appearance: frail appearing elderly woman sitting in a chair, appears comfortable. Eyes: PERRLA Ears/Nose/Mouth/Throat: Clear Oropharnyx Neck: NL Appearance and Movements; NL JVP Respiratory: Symmetrical Chest Expansion and Respiratory Effort - markedly diminished BS throughout the lungs. Cardiovascular: RRR - soft pansystolic murmur apex. Abdominal: NL Sounds; No Tenderness; No Distention Extremities: No Edema, No Clubbing, Cyanosis Skin: No Rash or Ulcers - pacer incision left w/o hematoma, no redness, no ecymosis. Neurological: Alert and Oriented x 3 Lines/Tubes/Other Access: Clean, Dry and Intact Archibald, Clean, Dry and Intact Peripheral IV Laboratory Results: 04/19/19 04:05 04/19/19 04:05 INR (Anticoag Therapy) 1.11 (0.82-1.09) H 04/18/19 16:20 APTT 28.6 seconds (26.0-38.0) 04/18/19 16:20 Total Bilirubin 0.50 mg/dL (0.2-1.0) 04/18/19 16:20 AST 40 U/L (13-39) H 04/18/19 16:20 ALT 44 U/L (7-52) 04/18/19 16:20 Alkaline Phosphatase 94 U/L (34-104) 04/18/19 16:20 CK-MB (CK-2) 5.6 ng/mL (0.6-6.3) 04/18/19 16:20 B-Natriuretic Peptide > 1300 pg/mL (<=100) H 04/18/19 16:20 Total Protein 6.6 g/dL (6.4-8.9) 04/18/19 16:20 Albumin 4.1 g/dL (3.2-5.2) 04/18/19 16:20 Globulin 2.5 g/dL (2-4) 04/18/19 16:20 Albumin/Globulin Ratio 1.6 (1-3) 04/18/19 16:20 04/18/19 04/18/19 04/18/19 16:20 19:24 23:04 Troponin I 0.32 H* 0.76 H* 2.80 H* 04/19/19 04:05 Troponin I 2.94 H* Diagnostic Imaging: CXR today: Lead placement OK, no pneumothorax, lungs hyperinflated. *[facility]* [place] [address] Fax #: [phone] Transthoracic Echocardiogram Patient: Dayana Plascencia : 1930 Study Date: 04/18/2019 Summary: - Left ventricle: Systolic function is normal. The estimated ejection fraction is 40-45%. Akinesis of the anteroseptal myocardium. Hypokinesis of the apical myocardium. Severe hypokinesis; in the distribution of the left anterior descending coronary artery. - Mitral valve: Appears moderately calcified. The leaflets are mildly thickened. There is moderate to severe regurgitation. - Aortic valve: There is no evidence of stenosis. - Tricuspid valve: There is mild regurgitation. - Pulmonary arteries: Systolic pressure is within the normal range, estimated to be 32 mm Hg. - Compared to study of 04/13/2019, the left ventricle wall motion abnormalities are new. Mitral regurgitation is the same. Cardiac Catheterization Report DAYANA PLASCENCIA [id number] 04/18/19 Circumflex. The circumflex is not dominant, moderate with a large ramus or high first marginal, a smaller second marginal, circumflex ends with a small posterolateral. The circumflex has no stenosis. CONCLUSION: 1. No significant obstructive coronary artery disease. Based on acute anterior wall motion abnormality with a clinical setting, the likely diagnosis is takotsubo's. Serial enzymes are pending. LAD : 20-30% occlusion. 2. Systolic hypertension with elevated LVDP. 3. Small right radial artery, unsuitable for radial access. 4. Successful right common femoral artery access with Angio-Seal closure. [id number]/[facility] #: [id number] <Electronically signed by Lynnette Gunter MD> 04/19/19 1144 Lynnette Gunter MD Dictated Date/Time: 04/18/19 1742 Transcribed Date/Time 04/19/19 0257 This report is only to be considered final once signed by the Provider(s) as displayed in the "<Electronically Signed by >" field (s). Absence of a signature indicates the report is in a draft status and still needs to be finalized. In the event this document was created by someone other than the signing Provider, the individual initiating the document will be listed in the "Entered by:" or "Dictated by:" guzman. 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 Pacer showing normal function. CP free although troponins have not peaked. PACER: -good function, good lead placement on CXR. 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 -c/w Takatsubo syndrome from anxiety -Differential of spasm of the LAD. -On Plavix, I stopped ASA as frail, pocket slightly full. -On Statin -continue metoprolol as BP tolerates for now. -Future consideration: exchange ACEI for Norvasc for possible spasm. MR: -persists on exam, continue beta tammi. Frail. -Have PT see in AM to assit with home plans. Low K+: -getting repleted.
[2019-04-19 12:31] LABS: Troponin I 2.18 ng/mL (<0.03)
[2019-04-19] MEDS: Atorvastatin* 20 MG TAB PO SCH (21:33)
[2019-04-20] MEDS: Metoprolol Tartrate TAB* 25 MG PO SCH ×2 (00:30→05:32)
--- NOTE | 2019-04-20 01:00 | PN ---
Hospitalist Progress Note Date of Service: 04/20/19 HOSPITALIST ADDENDUM Called by RN due to concern for right inguinal hematoma. Patient has no complaints of pain, numbness, or tingling. Palpable right inguinal hematoma, not tender, good pulses (femoral, popliteal, and DP), no thrill. Will check US and H/H.
[2019-04-20 06:08] LABS: Hematocrit 32 % (35-47); Hemoglobin 10.6 g/dL (12.0-16.0); Mean Corpuscular HGB Conc 33 g/dL (31-36); Mean Corpuscular Hemoglobin 32 pg (27-31); Mean Corpuscular Volume 96 fL (80-97); Mean Platelet Volume 10.2 fL (7.4-10.4); Platelet Count 120 10^3/uL (150-450); Red Blood Count 3.33 10^6 /uL (3.70-4.87); Red Cell Distribution Width 14 % (10-15); White Blood Count 6.3 10^3/uL (3.5-10.8)
[2019-04-20 06:20] LABS: Calcium 8.5 mg/dL (8.6-10.3); Potassium 4.3 mmol/L (3.5-5.0)
[2019-04-20 06:25] LABS: BUN/Creatinine Ratio 21.7 (8-20); EGFR African American 114.4 (>60); EGFR Non-African American 94.6 (>60)
[2019-04-20] MEDS: Clopidogrel TAB* 75 MG PO SCH (07:45)
[2019-04-20] MEDS: Primidone 50 mg TAB (*) PO SCH ×2 (08:34→21:00)
[2019-04-20] MEDS: FLUoxetine CAP* 20 MG PO SCH (08:34)
[2019-04-20] MEDS: Lisinopril TAB* 10 MG PO SCH (08:34)
[2019-04-20] MEDS: Aspirin 81 mg CHEW TAB* 81 MG TAB.CHEW PO SCH (09:13)
[2019-04-20] MEDS: Cephalexin CAP* 250 MG PO SCH ×3 (14:41→21:00)
--- NOTE | 2019-04-20 16:23 | PN ---
Subjective Date of Service: 04/20/19 Interval History: Patient was admitted to cardiology service for cardiac pacemaker on 04/18/2019, was transferred to hospitalist service today 04/20/2019. This is my initial with the patient. Patient initially did not want to return home today as she was feeling weak. Patient reports that she got up and walked around the ICU unit and now is feeling better. Denies chest pain or shortness of breath. Denies abd pain n/v/d. denies fever or chills. Family History: Unchanged from Admission Social History: Unchanged from Admission Past Medical History: Unchanged from Admission Objective Active Medications: Acetaminophen (Tylenol Tab*) 650 mg PO Q4H PRN PRN Reason: PAIN - MILD Last Admin: 04/18/19 18:46 Dose: 650 mg Aspirin (Aspirin 81 Mg Chew Tab*) 81 mg PO DAILY [facility] Last Admin: 04/20/19 09:13 Dose: 81 mg Atorvastatin Calcium (Lipitor*) 20 mg PO BEDTIME [facility] Last Admin: 04/19/19 21:33 Dose: 20 mg Cephalexin HCl (Keflex Cap*) 250 mg PO QID [facility] Last Admin: 04/20/19 14:41 Dose: 250 mg Diazepam (Valium Tab(*)) 2.5 mg PO ONCE PRN 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 [employer] Diphenhydramine HCl (Benadryl Po*) 25 mg PO ONCE PRN PRN 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 [employer] Fluoxetine HCl (Prozac Cap*) 40 mg PO DAILY [facility] Last Admin: 04/20/19 08:34 Dose: 40 mg Lisinopril (Prinivil Tab*) 10 mg PO DAILY [facility] Last Admin: 04/20/19 08:34 Dose: 10 mg Metoprolol Succinate (Toprol Xl Tab*) 25 mg PO DAILY [facility] Oxycodone/Acetaminophen (Percocet 5/325 Tab*) 1 tab PO Q4H PRN PRN Reason: PAIN - MODERATE Primidone (Mysoline 250 Mg Tab (*)) 100 mg PO QAM [facility] Last Admin: 04/20/19 08:34 Dose: 100 mg Primidone (Mysoline 250 Mg Tab (*)) 150 mg PO BEDTIME [facility] Last Admin: 04/19/19 21:33 Dose: 150 mg Vital Signs - 8 hr 04/20/19 04/20/19 04/20/19 09:00 10:00 11:00 Temperature Pulse Rate 60 60 61 Respiratory 19 16 18 Rate Blood Pressure (mmHg) O2 Sat by Pulse 95 95 97 Oximetry 04/20/19 04/20/19 04/20/19 12:00 12:36 13:00 Temperature 99.8 F Pulse Rate 60 61 Respiratory 16 22 Rate Blood Pressure 125/76 (mmHg) O2 Sat by Pulse 96 97 Oximetry 04/20/19 04/20/19 14:03 15:00 Temperature Pulse Rate 62 Respiratory 17 Rate Blood Pressure (mmHg) O2 Sat by Pulse 100 Oximetry Oxygen Devices in Use Now: None Appearance: appears comfortable , no acute distress Eyes: No Scleral Icterus Ears/Nose/Mouth/Throat: Clear Oropharnyx, Mucous Membranes Moist Neck: NL Appearance and Movements; NL JVP, Trachea Midline Respiratory: Symmetrical Chest Expansion and Respiratory Effort, Clear to Auscultation Cardiovascular: NL Sounds; No Murmurs; No JVD, No Edema Abdominal: NL Sounds; No Tenderness; No Distention Extremities: No Edema, No Clubbing, Cyanosis Skin: No Rash or Ulcers, - - left chest with dry and intact dressing. Neurological: Alert and Oriented x 3 Nutrition: Taking PO's Result Diagrams: 04/20/19 05:24 04/20/19 05:24 Assess/Plan/Problems-Billing Assessment: Ms. Plascencia is a 88 y.o female who presented in 3 degree heart block who had a pacemaker placement. - Patient Problems (1) Third degree heart block Current Visit: Yes Status: Acute Code(s): I44.2 - ATRIOVENTRICULAR BLOCK, COMPLETE SNOMED Code(s): 62421629 Comment: admitted on 04/18/2019 for pacemaker placement d/t 3 degree heart block - s/p pacemaker - no complaints, immobilzer in place (2) Chest pain Current Visit: Yes Status: Acute Code(s): R07.9 - CHEST PAIN, UNSPECIFIED SNOMED Code(s): 28265125 Comment: Patient had episode of chest pain after pacemaker placement on 04/18/2019 - had cardiac cath- no CAD - will continue to monitor - conitnue metoprolol - managment per cardiology (3) HTN (hypertension) Current Visit: No Status: Chronic Code(s): I10 - ESSENTIAL (PRIMARY) HYPERTENSION SNOMED Code(s): 13217157 Comment: cont lisinopril and metoprolol (4) Hyperlipidemia Current Visit: No Status: Chronic Code(s): E78.5 - HYPERLIPIDEMIA, UNSPECIFIED SNOMED Code(s): 97412636 Comment: - Continue lipitor (5) Essential tremor Current Visit: No Status: Chronic Code(s): G25.0 - ESSENTIAL TREMOR SNOMED Code(s): 540469602 Comment: - Continue primidone (6) DVT prophylaxis Current Visit: No Status: Acute Code(s): RQB6972 - SNOMED Code(s): 280346760 Comment: lovenox (7) Full code status Current Visit: No Status: Acute Code(s): Z78.9 - OTHER SPECIFIED HEALTH STATUS SNOMED Code(s): 504689045
[2019-04-20 16:43] LABS: ABS Basophils 0.1 10^3/ul (0-0.2); ABS Eosinophils 0.1 10^3/ul (0-0.6); ABS Lymphocytes 1.7 10^3/ul (1.0-4.8); ABS Monocytes 0.9 10^3/ul (0-0.8); ABS Neutrophils 4.6 10^3/ul (1.5-7.7); Eosinophil % 1.4 %; Hematocrit 33 % (35-47); Lymphocyte % 22.6 %; Mean Corpuscular HGB Conc 34 g/dL (31-36); Mean Corpuscular Hemoglobin 32 pg (27-31); Mean Corpuscular Volume 96 fL (80-97); Mean Platelet Volume 9.4 fL (7.4-10.4); Platelet Count 124 10^3/uL (150-450); Red Blood Count 3.41 10^6 /uL (3.70-4.87); Red Cell Distribution Width 14 % (10-15); White Blood Count 7.4 10^3/uL (3.5-10.8)
[2019-04-20] MEDS: Atorvastatin* 20 MG TAB PO SCH (21:00)
[2019-04-21] MEDS ORDERED: Loperamide CAP* 2 MG PO PRN (02:13)
[2019-04-21] MEDS: Aspirin 81 mg CHEW TAB* 81 MG TAB.CHEW PO SCH (08:28)
[2019-04-21] MEDS: Cephalexin CAP* 250 MG PO SCH ×2 (08:28→11:41)
[2019-04-21] MEDS: Primidone 50 mg TAB (*) PO SCH (08:29)
[2019-04-21] MEDS: FLUoxetine CAP* 20 MG PO SCH (08:29)
[2019-04-21] MEDS: Lisinopril TAB* 10 MG PO SCH (08:30)
[2019-04-21] MEDS ORDERED: Metoprolol Succinate XL TAB* 25 MG PO SCH (09:00)
[2019-04-21 11:31] VITALS: BP 111/61
--- NOTE | 2019-04-21 22:40 | DS ---
DISCHARGE SUMMARY: DATE OF ADMISSION: 04/18/19 DATE OF DISCHARGE: 04/21/19 PROVIDER: Skyla Moya NP PRIMARY CARE PROVIDER: Dr. Jeff Desai PRIMARY GRAVITY MANAGER: Dr. Maria REIMBURSEMENT ANALYST: Dr. Gunter ATTENDING PHYSICIAN WHILE IN THE HOSPITAL: The patient was on Cardiology Service and transferred to hospital medicine service on 04/20/19. HOSPITAL MEDICINE ATTENDING: Dr. Apollo Sims * (This report is by Skyla Moya NP) PRIMARY DIAGNOSES: 1. Third-degree heart block, status post pacemaker. 2. Takotsubo syndrome. 3. Groin hematoma. SECONDARY DIAGNOSES: 1. Depression. 2. Essential tremor. 3. Hypertension. 4. Mitral valve regurgitation. 5. Grade 2 systolic dysfunction. 6. Hyperlipidemia. STUDIES COMPLETE WHILE IN THE HOSPITAL: She had a transthoracic echocardiogram on 04/18/19, which showed left ventricular systolic function is normal, estimated ejection fraction 40% to 45%, akinesis at the anteroseptal myocardium , hypokinesis in the apical myocardium, severe hypokinesis in the distribution of left anterior descending coronary artery, mitral valve appears moderately calcified, the leaflets are mildly thickened. There is [id number] regurgitation, aortic valve. There is no evidence of stenosis, tricuspid valve. There is mild regurgitation. Compared to study from 04/13/19 of the left ventricular wall motion abnormalities are new, mitral regurgitation is the same. She had a chest x-ray on 04/18/19. 1. Status post cardiac pacemaker placement. 2. Finding suggestive of interstitial pulmonary edema. She had an electrocardiogram last one on 04/20/19, which showed paced rhythm at a rate of 62. She had ultrasound of the groin. No evidence of pseudoaneurysm as noted in the right groin. She had a repeat chest x-ray on 04/19/19, which showed pacemaker leads in place, calcification of mitral valve annulus, chronic changes are noted. DISCHARGE MEDICATIONS: New home medication: 1. Metoprolol XL 25 mg p.o. daily. 2. Aspirin 81 mg p.o. daily. 3. Keflex 250 mg p.o. t.i.d. x3 days. Continued home medication: 1. Primidone 150 mg at bedtime. 2. Lisinopril 10 mg p.o. daily. 3. Fluoxetine 40 mg p.o. daily. 4. Atorvastatin 20 mg at bedtime. 5. Tylenol extra strength as needed for pain. 6. Primidone 100 mg in the morning. HISTORY OF PRESENT ILLNESS AND HOSPITAL COURSE: Ms. Plascencia is an 88-year-old female with past medical history significant for depression, essential tremor, hyperlipidemia, mitral valve regurgitation, who presented for pacemaker placement on 04/18/19. The patient did have a pacemaker inserted. With pacemaker, the patient developed chest pain. She had a transthoracic echocardiogram, which showed decreased LV function and hypo and akinesis in the apex. Due to these findings, STEMI was called, the patient was taken for a cardiac catheterization. Cardiac catheterization showed: 1. No significant obstructive coronary artery disease based on the anterior wall motion abnormality with a clinical setting, it is likely diagnosis of Takotsubo. 2. Systolic hypertension with an elevated LVDP, small right radial artery unsuitable for radial access with successful right common femoral artery access with Angio-Seal closure. Throughout the hospitalization, the patient did improve. She is feeling better today on her day of discharge. The patient did complain of some diarrhea that started last evening, but has had no further episodes since this morning. The patient denies any abdominal pain. She denies any nausea or vomiting. She denies any chest pain or shortness of breath. She denies any cough or congestion, fever, or chills. She denies any pain in her right leg. REVIEW OF SYSTEMS: Fourteen-point review of systems was completed. All pertinent positive were mentioned in the HPI, otherwise were negative. PHYSICAL EXAMINATION: General: Ms. Plascencia is an 88-year-old. She is alert and oriented, sitting in her hospital bed. She is in no acute distress. Vital Signs: Blood pressure 111/61, heart rate 64, respirations are 22, O2 saturation 97%, temperature was 98.7. HEENT: Head is atraumatic, normocephalic. Eyes: EOMs are intact. Sclerae anicteric and not pale. Oral mucosa is moist. Neck is supple. Lungs are clear to auscultation. No wheezes, rales, or rhonchi. Cardiac: S1, S2. Regular rate and rhythm. She does have a murmur. Abdomen is soft and nontender. Bowel sounds are present x4. Extremities: She is able to move all 4 extremities. There is no clubbing or cyanosis. Pedal pulses are +2 bilaterally. She does have ecchymosis to the right groin. Her right femoral pulse is positive. Neurologic: She is awake, alert, oriented x3. Speech is clear. Thought process intact. She does have curtis intact to her left chest pacemaker site. There is mild surrounding ecchymosis. No swelling, no redness. Small amount of dried blood is noted on the dressing. At this time, Ms. Plascencia is stable for discharge home. DISCHARGE PLAN: Ms. Plascencia will be discharged home. 1. Status post pacemaker placement for symptomatic third-degree heart block. The patient will have a shoulder immobilizer. She is not to raise her arm above her head for 6 weeks. She should wear the shoulder immobilizer at all times. She should follow up with Dr. Maria as scheduled on 04/25/19 at 12:45 for pacemaker site check. 2. Takotsubo. The patient was followed by Cardiology during this hospitalization, they have recommended that the patient be on an OREN, beta- tammi, aspirin, and atorvastatin. The patient will continue on metoprolol 25 mg XL p.o. daily. She will continue lisinopril 10 mg p.o. daily, Lipitor 20 mg daily, and aspirin 81 mg p.o. daily. Again, she should follow up with Dr. Maria as scheduled on 04/25/19 at 12:45 p.m. The patient was instructed to call Dr. Maria's office with any signs or symptoms of infection from the pacemaker site, drainage, redness, or severe pain. The patient and her daughter verbalized understanding. 3. Cardiac catheterization. The patient again should follow up with Dr. Maria on 04/25/19 at 12:45 for evaluation of her heart catheterization site in the right groin. She does have a small amount of ecchymosis noted around the catheterization site at the time of discharge. 4. Chronic medical condition. The patient should resume previous medications as prescribed. The patient was instructed to return to the emergency room for any severe chest pain, shortness of breath, fever, chills, or any other concerning symptoms. CONDITION ON DISCHARGE: Stable. DISPOSITION ON DISCHARGE: Home. TIME SPENT: Time spent on this discharge was 45 minutes, greater than half that time was spent at the bedside reviewing events leading thus far to her hospitalization, performing physical exam, and reviewing my plan of care. I have discussed this with my attending, Dr. Apollo Sims, he is in agreement with my plan. SKYLA MOYA, ISIS [id number]/[facility] #: [id number] [facility] H[facility]PITALIván
== END 2019-04-21 12:42 | disposition home or self-care (01) | DRG 243 ==
LOC: CHICATH 07:26 → MEDTELE 10:01 → ICU 17:33 → OBSVTOIN 04-19 10:01 → MEDTELE 04-20 14:27
PROVIDERS: ADMIT Specialist; ATTEND Internal Medicine
PROC: 02H63JZ Insertion of Pacemaker Lead into Right Atrium, Percutaneous Approach (ICD-10-PCS; 2019-04-18)
PROC: 02HK3JZ Insertion of Pacemaker Lead into Right Ventricle, Percutaneous Approach (ICD-10-PCS; 2019-04-18)
PROC: B2111ZZ Fluoroscopy of Multiple Coronary Arteries using Low Osmolar Contrast (ICD-10-PCS; 2019-04-18)
PROC: 0JH606Z Insertion of Pacemaker, Dual Chamber into Chest Subcutaneous Tissue and Fascia, Open Approach (ICD-10-PCS; principal; 2019-04-18 08:30)
DX: I44.2 Atrioventricular block, complete (principal); I51.81 Takotsubo syndrome; G25.0 Essential tremor; M19.90 Unspecified osteoarthritis, unspecified site; M21.069 Valgus deformity, not elsewhere classified, unspecified knee; F41.9 Anxiety disorder, unspecified; E78.5 Hyperlipidemia, unspecified; F32.9 Major depressive disorder, single episode, unspecified; K58.9 Irritable bowel syndrome, unspecified; I11.9 Hypertensive heart disease without heart failure; I27.20 Pulmonary hypertension, unspecified; I08.3 Combined rheumatic disorders of mitral, aortic and tricuspid valves; I45.10 Unspecified right bundle-branch block; R19.7 Diarrhea, unspecified; S30.1XXA Contusion of abdominal wall, initial encounter; Z79.82 Long term (current) use of aspirin; Z88.2 Allergy status to sulfonamides; Z79.899 Other long term (current) drug therapy
CPT/HCPCS: 33208; 36415; 71045; 71046; 80048; 80053; 82550; 82553; 83721; 83874; 83880; 84484; 85025; 85027; 85610; 85730; 86850; 86900; 86901; 93005; 93306; 93458; 99156; 99157; A9270-GY; C1760; C1785; C1887; C1892; C1898; G0378; J0690; J1644; J1940; J2250; J3010

== ENCOUNTER 2019-05-28 11:58 | Emergency (ER) | payer MEDICARE, BC ==
--- OUTSIDE RECORDS SUMMARY | 2019-05-28 12:07 | XMS REPORT | Continuity of Care Document ---
:1930 External Reference #:[id number] Author Name Ica Pacer Schedule (transmitted by agent of provider Angelique Krueger) Address [address] [place], [place] [id number] Care Team Providers Name Role Phone Jeff Desai MD - Family Care Team Information [employer] Pilot [phone] Medicine Problems Active Problems Provider Date Essential tremor Reji Colorado M.D. Onset: 12/26/2013 Mitral valve disorder Mayito Maria M.D. Onset: 01/31/2015 Strain of rotator cuff capsule Juan R Hobbs MD Onset: 01/07/2017 Localized, primary osteoarthritis Juan R Hobbs MD Onset: 01/07/2017 Acquired genu valgum Saadia Cee M.D. Onset: 03/05/2017 Periprosthetic fracture Saadia Cee M.D. Onset: 09/05/2018 Social History Type Date Description Comments Sex Unknown Tobacco Use Start: Unknown Never Smoked Cigarettes Smoking Status Reviewed: 04/25/19 Never Smoked Cigarettes ETOH Use Consumes 1 glass of wine per day Tobacco Use Start: Unknown Patient has never smoked Recreational Drug Use Denies Drug Use Exercise Type/Frequency Exercises regularly Allergies, Adverse Reactions, Alerts Active Allergies Reaction Severity Comments Date Sulfa Antibiotics rash 09/07/2012 Medications Active Medications SIG Qnty Indications Ordering Provider Date Fluoxetine 1 po qd (pt 90capdex Anand M.D. 03/09/2013 20mg takes 40mg Capsules daily) Primidone Take 2 Tablets 150tabs Reji [place], 01/04/2013 50mg Tablets By Mouth Every M.D. Morning And 3 AT Bedtime Maximum Daily Dose = 5 Lisinopril 1 po qd Unknown 10mg Tablets Atorvastatin Calcium take 1 tablet at Unknown bedtime 20mg Tablets Zolpidem Tartrate 1 tab as needed Unknown 5mg Metoprolol Succinate 1 by mouth every Unknown ER day 25mg Tablets ER 24HR Aspirin 81MG 1 po daily Unknown Medications Administered in Office Medication SIG Qnty [...] Available Vital Signs Date Vital Result Comment 04/25/2019 12:57pm Height 61 inches 5'1" Weight 112.38 lb Heart Rate 60 /min right wrist BP Systolic Sitting 126 mmHg right arm, reg cuff BP Diastolic Sitting 84 mmHg right arm, reg cuff BP Systolic Standing 120 mmHg right arm, reg-cuff BP Diastolic Standing 76 mmHg right arm, reg-cuff BMI (Body Mass Index) 21.2 kg/m2 04/12/2019 1:16pm Height 61 inches 5'1" Weight 111.25 lb with shoes Heart Rate 46 /min BP Systolic Sitting 120 mmHg Ra BP Diastolic Sitting 76 mmHg Ra BP Systolic Standing 110 mmHg Ra BP Diastolic Standing 70 mmHg Ra BMI (Body Mass Index) 21.0 kg/m2 Ejection Fraction 60-65% Echo 03/17/18 Results Test Acquired Facility Test Result H/L Range Note Date Order 05/16/2019 [facility] Echocardiogram <pending > [address] [place] [address] [phone] CBC Auto 04/13/2019 [facility] White Blood Count 5.9 Normal 3.5-10.[address] 10^3/[place] [address] [phone] Red Blood Count 3.81 10^6/uL Normal 3.70-4.87 Hemoglobin 12.1 g/dL Normal 12.0-16.0 Hematocrit 36 % Normal 35-47 Mean Corpuscular Volume 96 fL Normal 80-97 Mean Corpuscular Hemoglobin 32 pg High 27-31 Mean Corpuscular HGB Conc 33 g/dL Normal 31-36 Red Cell Distribution Width 14 % Normal 10-15 Platelet Count 207 10^3/uL Normal 150-450 Mean Platelet Volume 9.3 fL Normal 7.4-10.4 Abs Neutrophils 3.6 10^3/uL Normal 1.5-7.7 Abs Lymphocytes 1.7 10^3/uL Normal 1.0-4.8 Abs Monocytes 0.5 10^3/uL Normal 0-0.8 Abs Eosinophils 0.1 10^3/uL Normal 0-0.6 Abs Basophils 0.1 10^3/uL Normal 0-0.2 Abs Nucleated RBC 0.0 10^3/uL Granulocyte % 60.8 % Lymphocyte % 27.8 % Monocyte % 8.2 % Eosinophil % 2.2 % Basophil % 1.0 % Nucleated Red Blood Cells % 0.1 Basic Metabolic 04/13/2019 [facility] Sodium 139 mmol/L Normal 135-[address] [place] [address] [phone] Potassium 4.4 mmol/L Normal 3.5-5.0 Chloride 104 mmol/L Normal 101-111 Co2 Carbon Dioxide 28 mmol/L Normal 22-32 Anion Gap 7 mmol/L Normal 2-11 Glucose 96 mg/dL Normal 70-100 Blood Urea Nitrogen 16 mg/dL Normal 6-24 Creatinine 0.64 mg/dL Normal 0.51-0.95 BUN/Creatinine Ratio 25.0 High 8-20 Calcium 8.9 mg/dL Normal 8.6-10.3 Egfr Non- 87.8 >60 Egfr 106.2 >60 1 Inr/Protime 04/13/2019 [facility] Inr 1.03 Normal 0.82-1.[address] [place] [address] [phone] Laboratory test 04/13/2019 [facility] Partial 33.6 Normal 26.0 -38.[address] [place] [address] Time PTT [phone] Pre Cath Panel 04/12/2019 [facility] Partial <pending> [address] [place] [address] Time PTT [phone] 1 Because ethnic data is not always readily [...] 15-29 5 Kidney failure <15 (or dialysis) 2 Standard intensity warfarin therapeutic range: 2.0-3.0 High intensity warfarin therapeutic range: 2.5-3.5 Procedures Date Code Description Status 05/16/2019 35536 ECHO Transthoracic, Real-Time 2D With Doppler And Color Completed Flow 04/18/2019 62135 Left Heart Cath. Incl S/I Coronaries, Angio S/I V Gram If Completed Done 04/18/2019 75451 ECHO Transthorasic Realtime 2D W Doppler & Color Flow Hosp Completed 04/18/2019 [address] Pacemaker Av Sequential Atrial And Ventricular Completed 04/12/2019 93383 ECHO Transthoracic, Real-Time 2D With Doppler And Color Completed Flow 04/12/2019 80569 ECHO Transthoracic, Real-Time 2D With Doppler And Color Completed Flow 04/12/2019 90058 EKG Tracing & Interpretation Completed Medical Devices Description No Information Available Encounters Type Date Location Provider Dx Diagnosis Office Visit 04/25/2019 [facility] Mayito Ruggiero I44.2 Atrioventricular block, 1:00p Of [facility] AT [facility] Stephane Maria complete I10 Essential (primary) hypertension I51.81 Takotsubo syndrome Office Visit 04/21/2019 [facility] Severo Martinez I51.81 Takotsubo syndrome 11:46a [facility] [place] M.D., [facility], [facility] Office Visit 04/21/2019 [facility] Skyla I44.2 Atrioventricular 8:53a Assoc,pc Nita, HELP DESK AGENT block, complete Hospitalists I10 Essential (primary) hypertension Office Visit 04/20/2019 [facility] Severoannamaria Martinez I51.81 Takotsubo syndrome 11:48a [facility] [place] M.D., [facility], [facility] Atrioventricular 8:53a Assoc,pc Nita, HELP DESK AGENT block, complete Hospitalists R07.9 Chest pain, unspecified I10 Essential (primary) hypertension Office Visit 04/19/2019 3:55p [facility] Chelle Bailey, I51.81 Takotsubo [place] Calder[place] syndrome I25.10 Athscl heart disease of [place] coronary artery w/o ang pctrs I34.0 Nonrheumatic mitral (valve) insufficiency Office Visit 04/12/2019 1:30p [facility] Mayito Ruggiero I10 Essential (primary) Of [place] Maria M.D. hypertension I34.0 Nonrheumatic mitral (valve) insufficiency I44.30 Unspecified atrioventricular block Assessments Date Code Description Provider 05/16/2019 I44.2 Atrioventricular block, complete Ica ECHO Schedule 04/25/2019 I44.2 Atrioventricular block, complete Mayito Maria M.D. 04/25/2019 I10 Essential (primary) hypertension Mayito Maria M.D. 04/25/2019 I51.81 Takotsubo cardiomyopathy Mayito Maria M.D. 04/21/2019 I44.2 Atrioventricular block, complete Skyla Moya NP 04/21/2019 I51.81 Takotsubo syndrome Severo Juan Motngomery M.D., [facility], [facility] 04/21/2019 I10 Essential (primary) hypertension Skyla Moya NP 04/20/2019 I44.2 Atrioventricular block, complete Skyla Moya, HELP DESK AGENT 04/20/2019 I51.81 Takotsubo syndrome Severo Montgomery M.D., [facility], [facility] 04/20/2019 R07.9 Chest pain, unspecified Skyla Moya, HELP DESK AGENT 04/20/2019 I10 Essential (primary) hypertension Skyla Moya, HELP DESK AGENT 04/19/2019 I51.81 Takotsubo cardiomyopathy Chelle Bailey M.D. 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 insufficiency 04/18/2019 R07.9 Chest pain, unspecified Lynnette Gunter MD, [facility], [facility] 04/18/2019 R07.9 Chest pain, unspecified Mayito Maria M.D. 04/18/2019 I44.2 Atrioventricular block, complete Mayito Maria M.D. 04/12/2019 I44.30 Unspecified atrioventricular block Mayito Maria M.D. 04/12/2019 I44.30 Unspecified atrioventricular block Traveling ECHO 1 04/12/2019 I10 Essential (primary) hypertension Mayito Maria M.D. 04/12/2019 I34.0 Nonrheumatic mitral (valve) Mayito Maria M.D. insufficiency 04/12/2019 I44.30 Atrioventricular block Mayito Maria M.D. Plan of Treatment Future Appointment(s):06/09/2019 12:00 pm - Mayito Maria M.D. at [facility]07/18/2019 9:30 am - Reji Colorado M.D. at [facility]04/25/2019 - Mayito Maria M.D.I44.2 Atrioventricular block, completeNew Orders:Interrogation Pacemaker, Scheduled: 05/16/19Follow up:1 [id number] Essential (primary) djcuwbvexeqhF78.81 Takotsubo cardiomyopathy Functional Status Description No Information Available Mental Status Description No Information Available Referrals Description No Information Available
--- OUTSIDE RECORDS SUMMARY | 2019-05-28 12:07 | XMS REPORT | Continuity of Care Document ---
:1930 External Reference #:[id number] Author Name Ica Pacer Schedule (transmitted by agent of provider Trini Thornton) Address [address] [place] [address] Care Team Providers Name Role Phone Jeff Desai MD - Family Care Team Information Rough Planer Tender [phone] Medicine Problems Active Problems Provider Date Essential [...] Provider Date Fluoxetine 1 po qd (pt 90joe Anand M.D. 03/09/2013 20mg takes 40mg Capsules [...] Fraction 60-65% Echo 03/17/18 Results Test Acquired Date Facility Test Result H/L Range Note CBC Auto 04/13/2019 [facility] White Blood 5.9 10^3/uL Normal 3.5-10.[address] [place] [address] [phone] Red Blood Count 3.81 10^6/uL Normal 3.70-4.87 [...] Blood Cells % 0.1 Basic Metabolic 04/13/2019 [facility] Sodium 139 mmol/L Normal 135-145 Panel [address] [place] [address] [phone] Potassium 4.4 mmol/L Normal 3.5-5.0 Chloride 104 mmol/L Normal 101-111 Co2 Carbon Dioxide 28 mmol/L Normal 22-32 Anion Gap 7 mmol/L Normal 2-11 Glucose 96 mg/dL Normal 70-100 Blood Urea Nitrogen 16 mg/dL Normal 6-24 Creatinine 0.64 mg/dL Normal 0.51-0.95 BUN/Creatinine Ratio 25.0 High 8-20 Calcium 8.9 mg/dL Normal 8.6-10.3 Egfr Non- 87.8 >60 Egfr 106.2 >60 1 Inr/Protime 04/13/2019 [facility] Inr 1.03 Normal 0.82-1.09 2 [address] [place] [address] [phone] Laboratory test 04/13/2019 [facility] Partial 33.6 Normal 26.0 -38.[address] [place] [place] [address] Time PTT [phone] Pre Cath Panel 04/12/2019 [facility] Partial <pending> [address] [place] [address] Time PTT [phone] 1 Because ethnic data is not always [...] 2.5-3.5 Procedures Date Code Description Status 05/16/2019 55904 ECHO Transthoracic, Real-Time 2D With Doppler And Color Completed Flow 05/16/2019 18059 Pace Maker Eval W/Iterative Adjment Dual Lead Completed 05/16/2019 56010 Pace Maker Eval W/Iterative Adjment Dual Lead Completed 04/18/2019 26890 Left Heart Cath. Incl S/I Coronaries, Angio S/I V Gram If Completed Done 04/18/2019 34897 ECHO Transthorasic Realtime 2D W Doppler & Color Flow Hosp Completed 04/18/2019 18196 Perm Pacemaker Av Sequential Atrial And Ventricular Completed 04/12/2019 62414 ECHO Transthoracic, Real-Time 2D With Doppler And Color Completed Flow 04/12/2019 25420 ECHO Transthoracic, Real-Time 2D With Doppler And Color Completed Flow 04/12/2019 00130 EKG Tracing & Interpretation Completed Medical Devices Description No Information Available Encounters Type Date Location Provider Dx Diagnosis Office Visit 04/25/2019 [facility] Mayito Ruggiero I44.2 Atrioventricular block, 1:00p Of [facility] AT [facility] Stephane Maria complete I10 Essential (primary) hypertension I51.81 Takotsubo syndrome Office Visit 04/21/2019 [facility] Severo Martinez I51.81 Takotsubo syndrome 11:46a Of [place] Montgomery M.D., [facility], [facility]ASW[facility] Office Visit 04/21/2019 [facility] I44.2 Atrioventricular 8:53a Assoc,pc [place], CORE ANALYSIS OPERATOR block, complete Hospitalists I10 Essential (primary) hypertension Office Visit 04/20/2019 [facility] Severoannamaria Martinez I51.81 Takotsubo syndrome 11:48a Of [place] Montgomery M.D., [facility], [place] Office Visit 04/20/2019 [facility] I44.2 Atrioventricular 8:53a Assoc,pc [place], CORE ANALYSIS OPERATOR block, complete Hospitalists R07.9 Chest pain, unspecified I10 Essential (primary) hypertension Office Visit 04/19/2019 3:55p [facility] Chelle Bailey, I51.81 Takotsubo Of [place] Calderón syndrome I25.10 Athscl heart disease of [place] coronary artery w/o ang pctrs I34.0 Nonrheumatic mitral (valve) insufficiency Office Visit 04/12/2019 1:30p [facility] Mayito Ruggiero I10 Essential (primary) [place] Maria M.D. hypertension I34.0 Nonrheumatic mitral (valve) insufficiency I44.30 Unspecified atrioventricular block Assessments Date Code Description Provider 05/16/2019 I44.2 Atrioventricular block, niko Maria M.D. 05/16/2019 I44.2 Atrioventricular block, complete Ica Pacer Schedule 05/16/2019 Z95.0 Presence of cardiac pacemaker Mayito Maria M.D. 05/16/2019 I44.2 Atrioventricular block, complete Ica ECHO Schedule 05/16/2019 Z95.0 Presence of cardiac pacemaker Ica Pacer Schedule 04/25/2019 I44.2 Atrioventricular block, complete Mayito Maria M.D. 04/25/2019 I10 Essential (primary) hypertension Mayito Maria M.D. 04/25/2019 I51.81 Takotsubo cardiomyopathy Mayito Maria M.D. 04/21/2019 I44.2 Atrioventricular block, complete Skyla Moya, CORE ANALYSIS OPERATOR 04/21/2019 I51.81 Takotsubo syndrome Severo Montgomery M.D., [facility], [facility] 04/21/2019 I10 Essential (primary) hypertension Skyla Moya, CORE ANALYSIS OPERATOR 04/20/2019 I44.2 Atrioventricular block, complete Skyla Moya, CORE ANALYSIS OPERATOR 04/20/2019 I51.81 Takotsubo syndrome Severo Montgomery M.D., [facility], [facility] 04/20/2019 R07.9 Chest pain, unspecified Skyla Moya, CORE ANALYSIS OPERATOR 04/20/2019 I10 Essential (primary) hypertension Skyla Moya, CORE ANALYSIS OPERATOR 04/19/2019 I51.81 Takotsubo cardiomyopathy Chelle Bailey M.D. 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 insufficiency 04/18/2019 R07.9 Chest pain, unspecified Lynnette Gunter MD, [facility], [facility] 04/18/2019 R07.9 Chest pain, unspecified Mayito Maria [...] 12:00 pm - Mayito Maria M.D. at [facility]07/18/2019 9:30 am - Reji Colorado M.D. at [facility] Services [facility]04/25/2019 - Mayito Maria M.D.I44.2 Atrioventricular block, completeNew Orders:Interrogation Pacemaker, Scheduled: 05/16/19Follow up:1 [id number] Essential (primary) cklicpytlywiG60.81 Takotsubo cardiomyopathy Functional Status Description No Information Available Mental Status Description No Information Available Referrals Description No Information Available
--- OUTSIDE RECORDS SUMMARY | 2019-05-28 12:07 | XMS REPORT | Continuity of Care Document ---
:1930 External Reference #:[id number] Author Name Skyla Moya NP (transmitted by agent of provider Anupama Carrillo) Address [address] [place] [address] Care Team Providers Name Role Phone Jeff Desai MD - Family Care Team Information Finance Insurance Manager [phone] Medicine Problems Active Problems Provider Date Essential [...] Result H/L Range Note CBC Auto 04/13/2019 [facility] White Blood 5.9 10^3/uL Normal 3.5-10.[address] [place] [address] [phone] Red Blood Count 3.81 10^6/uL Normal 3.70-4.87 [...] Blood Cells % 0.1 Basic Metabolic 04/13/2019 [facility] Sodium 139 mmol/L Normal 135-145 Panel [address] [place] [address] [phone] Potassium 4.4 mmol/L Normal 3.5-5.0 Chloride 104 mmol/L Normal 101-111 Co2 Carbon Dioxide 28 mmol/L Normal 22-32 Anion Gap 7 mmol/L Normal 2-11 Glucose 96 mg/dL Normal 70-100 Blood Urea Nitrogen 16 mg/dL Normal 6-24 Creatinine 0.64 mg/dL Normal 0.51-0.95 BUN/Creatinine Ratio 25.0 High 8-20 Calcium 8.9 mg/dL Normal 8.6-10.3 Egfr Non- 87.8 >60 Egfr 106.2 >60 1 Inr/Protime 04/13/2019 [facility] Inr 1.03 Normal 0.82-1.09 2 [address] [place] [address] [phone] Laboratory test 04/13/2019 [facility] Partial 33.6 Normal 26.0 -38.[address] [place] [address] Time PTT [phone] Pre Cath Panel 04/12/2019 [facility] Partial <pending> [address] [place] [address] Time PTT [phone] 1 Because ethnic data is not always [...] range: 2.5-3.5 Procedures Date Code Description Status 04/18/2019 84881 Left Heart Cath. Incl S/I Coronaries, Angio S/I V Gram If Completed Done 04/18/2019 48933 ECHO Transthorasic Realtime 2D W Doppler & Color Flow Hosp Completed 04/18/2019 36295 Perm Pacemaker Av Sequential Atrial And Ventricular Completed 04/12/2019 14916 ECHO Transthoracic, Real-Time 2D With Doppler And Color Completed Flow 04/12/2019 57723 ECHO Transthoracic, Real-Time 2D With Doppler And Color Completed Flow 04/12/2019 30503 EKG Tracing & Interpretation Completed Medical Devices Description No Information Available Encounters Type Date Location Provider Dx Diagnosis Office Visit 04/25/2019 [facility] Mayito Ruggiero I44.2 Atrioventricular block, 1:00p Of Sports Management Professor AT [facility] Stephane Maria complete I10 Essential (primary) hypertension I51.81 Takotsubo syndrome Office Visit 04/21/2019 [facility] Severo Martinez I51.81 Takotsubo syndrome 11:46a Of [place] Montgomery M.D., [facility], [facility] Office Visit 04/21/2019 [facility] Skyla I44.2 Atrioventricular 8:53a Assoc,pc [place], ROAD MAKER block, complete Hospitalists I10 Essential (primary) hypertension Office Visit 04/20/2019 [facility] Severo Martinez I51.81 Takotsubo syndrome 11:48a Of [place] Montgomery M.D., [facility], [facility] Office Visit 04/20/2019 [facility] Skyla I44.2 Atrioventricular 8:53a Assoc,pc [place], ROAD MAKER block, complete Hospitalists R07.9 Chest pain, unspecified I10 Essential (primary) hypertension Office Visit 04/19/2019 3:55p [facility] Chelle Bailey I51.81 Takotsubo [place] Calderón syndrome I25.10 Athscl heart disease of [place] coronary artery w/o ang pctrs I34.0 Nonrheumatic mitral (valve) insufficiency Office Visit 04/12/2019 1:30p [facility] Mayito Ruggiero I10 Essential (primary) Of [place] Maria M.D. hypertension I34.0 Nonrheumatic mitral (valve) insufficiency I44.30 Unspecified atrioventricular block Assessments Date Code Description Provider 04/25/2019 I44.2 Atrioventricular block, complete Mayito Maria M.D. 04/25/2019 I10 Essential (primary) hypertension Mayito Maria M.D. 04/25/2019 I51.81 Takotsubo cardiomyopathy Mayito Maria M.D. 04/21/2019 I44.2 Atrioventricular block, complete Skyla Nita, ROAD MAKER 04/21/2019 I51.81 Takotsubo syndrome Severo Montgomery M.D., [facility], [facility] 04/21/2019 I10 Essential (primary) hypertension Skyla Nita, ROAD MAKER 04/20/2019 I44.2 Atrioventricular block, complete Skyla [place], ROAD MAKER 04/20/2019 I51.81 Takotsubo syndrome Severo Montgomery M.D., [facility], [facility] 04/20/2019 R07.9 Chest pain, unspecified Skyla [place], ROAD MAKER 04/20/2019 I10 Essential (primary) hypertension Skyla Moya, ROAD MAKER 04/19/2019 I51.81 Takotsubo cardiomyopathy Chelle Bailey M.D. 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 insufficiency 04/18/2019 R07.9 Chest pain, unspecified Lynnette Gunter MD, [facility], [facility] 04/18/2019 R07.9 Chest pain, unspecified Mayito Maria [...] 12:00 pm - Mayito Maria M.D. at [facility]05/16/2019 3:00 pm - Ica ECHO Schedule at [facility]05/16/2019 3:30 pm - Ica Pacer Schedule at [facility]2019 9:30 am - Reji Colorado M.D. at [facility] Services Of [facility]04/24 - Mayito Maria M.D.I44.2 Atrioventricular block, completeNew Orders: Echocardiogram, Scheduled: 05/16/19Interrogation Pacemaker, Scheduled: Follow up:1 [id number] Essential (primary) ubsggrgghxwbV47.81 Takotsubo cardiomyopathy Functional Status Description No Information Available Mental Status Description No Information Available Referrals Description No Information Available
--- OUTSIDE RECORDS SUMMARY | 2019-05-28 12:07 | XMS REPORT | Continuity of Care Document ---
:1930 External Reference #:[id number] Author Name Ica ECHO Schedule (transmitted by agent of provider Trini Thornton) Address [address] [place], [place] [address] Care Team Providers Name Role Phone Jeff Desai MD - Family Care Team Information Rotary Furnace Tender [phone] Medicine Problems Active Problems Provider Date Essential [...] Result H/L Range Note CBC Auto 04/13/2019 [facility] White Blood 5.9 10^3/uL Normal 3.5-10.[address] [place] [address] [phone] Red Blood Count 3.81 10^6/uL Normal 3.70-4.87 [...] Blood Cells % 0.1 Basic Metabolic 04/13/2019 [facility] Sodium 139 mmol/L Normal 135-145 Panel [address] [place] [address] [phone] Potassium 4.4 mmol/L Normal 3.5-5.0 Chloride 104 mmol/L Normal 101-111 Co2 Carbon Dioxide 28 mmol/L Normal 22-32 Anion Gap 7 mmol/L Normal 2-11 Glucose 96 mg/dL Normal 70-100 Blood Urea Nitrogen 16 mg/dL Normal 6-24 Creatinine 0.64 mg/dL Normal 0.51-0.95 BUN/Creatinine Ratio 25.0 High 8-20 Calcium 8.9 mg/dL Normal 8.6-10.3 Egfr Non- 87.8 >60 Egfr 106.2 >60 1 Inr/Protime 04/13/2019 [facility] Inr 1.03 Normal 0.82-1.09 2 [address] [place] [address] [phone] Laboratory test 04/13/2019 [facility] Partial 33.6 Normal 26.0 -38.[address] [place] [place] [address] Time PTT [phone] Pre Cath Panel 04/12/2019 [facility] Partial <pending> [address] [place] [address] Time PTT [phone] 1 Because ethnic data is not always [...] 2.5-3.5 Procedures Date Code Description Status 05/16/2019 09955 ECHO Transthoracic, Real-Time 2D With Doppler And Color Completed Flow 05/16/2019 62348 ECHO Transthoracic, Real-Time 2D With Doppler And Color Completed Flow 05/16/2019 62878 Pace Maker Eval W/Iterative Adjment Dual Lead Completed 05/16/2019 68497 Pace Maker Eval W/Iterative Adjment Dual Lead Completed 04/18/2019 76509 Left Heart Cath. Incl S/I Coronaries, Angio S/I V Gram If Completed Done 04/18/2019 83929 ECHO Transthorasic Realtime 2D W Doppler & Color Flow Hosp Completed 04/18/2019 18289 Perm Pacemaker Av Sequential Atrial And Ventricular Completed 04/12/2019 94395 ECHO Transthoracic, Real-Time 2D With Doppler And Color Completed Flow 04/12/2019 69254 ECHO Transthoracic, Real-Time 2D With Doppler And Color Completed Flow 04/12/2019 68806 EKG Tracing & Interpretation Completed Medical Devices Description No Information Available Encounters Type Date Location Provider Dx Diagnosis Office Visit 04/25/2019 [facility] Mayito Ruggiero I44.2 Atrioventricular block, 1:00p Of Fire Tender AT [facility] Stephane Maria complete I10 Essential (primary) hypertension I51.81 Takotsubo syndrome Office Visit 04/21/2019 [facility] Severoannamaria Martinez I51.81 Takotsubo syndrome 11:46a Of [place] Montgomery M.D., [facility], [facility] Office Visit 04/21/2019 [facility] I44.2 Atrioventricular 8:53a Assoc,pc Nita, REPORT SPECIALIST block, complete Hospitalists I10 Essential (primary) hypertension Office Visit 04/20/2019 [facility] Severoannamaria Martinez I51.81 Takotsubo syndrome 11:48a Of [place] Montgomery M.D., [facility], [facility] Office Visit 04/20/2019 [facility] I44.2 Atrioventricular 8:53a Assoc,pc Nita, REPORT SPECIALIST block, complete Hospitalists R07.9 Chest pain, unspecified I10 Essential (primary) hypertension Office Visit 04/19/2019 3:55p [facility] Chelle Bailey, I51.81 Takotsubo Of [place] Calderón syndrome I25.10 Athscl heart disease of [place] coronary artery w/o ang pctrs I34.0 Nonrheumatic mitral (valve) insufficiency Office Visit 04/12/2019 1:30p [facility] Mayito Ruggiero I10 Essential (primary) Of [place] Maria M.D. hypertension I34.0 Nonrheumatic mitral (valve) insufficiency I44.30 Unspecified atrioventricular block Assessments Date Code Description Provider 05/16/2019 I44.2 Atrioventricular block, complete Mayito Maria M.D. 05/16/2019 I44.2 Atrioventricular block, complete Mayito Maria M.D. 05/16/2019 I44.2 Atrioventricular block, [...] 04/21/2019 I44.2 Atrioventricular block, complete Skyla Moya, REPORT SPECIALIST 04/21/2019 I51.81 Takotsubo syndrome Severo Montgomery M.D., [facility], [facility] 04/21/2019 I10 Essential (primary) hypertension Skyla [place], REPORT SPECIALIST 04/20/2019 I44.2 Atrioventricular block, complete Skyla [place], REPORT SPECIALIST 04/20/2019 I51.81 Takotsubo syndrome Severo Montgomery M.D., [facility], [facility] 04/20/2019 R07.9 Chest pain, unspecified Skyla Moya, REPORT SPECIALIST 04/20/2019 I10 Essential (primary) hypertension Skyla Moya, REPORT SPECIALIST 04/19/2019 I51.81 Takotsubo cardiomyopathy Chelle Bailey M.D. 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 insufficiency 04/18/2019 R07.9 Chest pain, unspecified Lynnette Gunter MD, [facility], [facility] 04/18/2019 R07.9 Chest pain, unspecified Mayito [...] 12:00 pm - Mayito Maria M.D. at [facility]07/18/2019 9:30 am - Reji Colorado M.D. at [facility]04/25/2019 - Mayito Maria M.D.I44.2 Atrioventricular block, completeNew Orders:Interrogation Pacemaker, Scheduled: 05/16/19Follow up:1 [id number] Essential (primary) uklsgulvpdasA10.81 Takotsubo cardiomyopathy Functional Status Description No Information Available Mental Status Description No Information Available Referrals Description No Information Available
--- OUTSIDE RECORDS SUMMARY | 2019-05-28 12:07 | XMS REPORT | Continuity of Care Document ---
:1930 External Reference #:[id number] Author Name Skyla Moya NP (transmitted by agent of provider Anupama Carrillo) Address [address] [place] [address] Care Team Providers Name Role Phone Jeff Desai MD - Family Care Team Information Transit Police Officer [phone] Medicine Problems Active Problems Provider Date Essential [...] Result H/L Range Note CBC Auto 04/13/2019 [facility] White Blood 5.9 10^3/uL Normal 3.5-10.[address] [place] [address] [phone] Red Blood Count 3.81 10^6/uL Normal 3.70-4.87 [...] Blood Cells % 0.1 Basic Metabolic 04/13/2019 [facility] Sodium 139 mmol/L Normal 135-145 Panel [address] [place] [address] [phone] Potassium 4.4 mmol/L Normal 3.5-5.0 Chloride 104 mmol/L Normal 101-111 Co2 Carbon Dioxide 28 mmol/L Normal 22-32 Anion Gap 7 mmol/L Normal 2-11 Glucose 96 mg/dL Normal 70-100 Blood Urea Nitrogen 16 mg/dL Normal 6-24 Creatinine 0.64 mg/dL Normal 0.51-0.95 BUN/Creatinine Ratio 25.0 High 8-20 Calcium 8.9 mg/dL Normal 8.6-10.3 Egfr Non- 87.8 >60 Egfr 106.2 >60 1 Inr/Protime 04/13/2019 [facility] Inr 1.03 Normal 0.82-1.09 2 [address] [place] [address] [phone] Laboratory test 04/13/2019 [facility] Partial 33.6 Normal 26.0 -38.[address] [place] [address] Time PTT [phone] Pre Cath Panel 04/12/2019 [facility] Partial <pending> [address] [place] [address] Time PTT [phone] 1 Because ethnic data is not always [...] 2.5-3.5 Procedures Date Code Description Status 04/18/2019 84733 Left Heart Cath. Incl S/I Coronaries, Angio S/I V Gram If Completed Done 04/18/2019 20802 ECHO Transthorasic Realtime 2D W Doppler & Color Flow Hosp Completed 04/18/2019 80776 Perm Pacemaker Av Sequential Atrial And Ventricular Completed 04/12/2019 22720 ECHO Transthoracic, Real-Time 2D With Doppler And Color Completed Flow 04/12/2019 09382 ECHO Transthoracic, Real-Time 2D With Doppler And Color Completed Flow 04/12/2019 01551 EKG Tracing & Interpretation Completed Medical Devices Description No Information Available Encounters Type Date Location Provider Dx Diagnosis Office Visit 04/25/2019 [facility] Mayito Ruggiero I44.2 Atrioventricular block, 1:00p Of Corporate Financial Analyst AT [facility] Stephane Maria complete I10 Essential (primary) hypertension I51.81 Takotsubo syndrome Office Visit 04/21/2019 [facility] Severo Martinez I51.81 Takotsubo syndrome 11:46a Of [place] Motngomery M.D., [facility], [facility] Office Visit 04/21/2019 [facility] Skyla I44.2 Atrioventricular 8:53a Assoc,pc [place], HIGH DENSITY FINISHING OPERATOR block, complete Hospitalists I10 Essential (primary) hypertension Office Visit 04/20/2019 [facility] Severo Martinez I51.81 Takotsubo syndrome 11:48a Of [place] Montgomery M.D., [facility], [facility] Office Visit 04/20/2019 [facility] Skyla I44.2 Atrioventricular 8:53a Assoc,pc [place], HIGH DENSITY FINISHING OPERATOR block, complete Hospitalists R07.9 Chest pain, unspecified I10 Essential (primary) hypertension Office Visit 04/19/2019 3:55p [facility] Chelle Bailey I51.81 Takotsubo Of [place] Calderón syndrome I25.10 Athscl heart disease of [place] coronary artery w/o ang pctrs I34.0 Nonrheumatic mitral (valve) insufficiency Office Visit 04/12/2019 1:30p [facility] Mayito Ruggiero I10 Essential (primary) Of [place] Maria M.D. hypertension I34.0 Nonrheumatic mitral (valve) insufficiency I44.30 Unspecified atrioventricular block Assessments Date Code Description Provider 04/25/2019 I44.2 Atrioventricular block, complete Mayito Maria M.D. 04/25/2019 I10 Essential (primary) hypertension Mayito Maria M.D. 04/25/2019 I51.81 Takotsubo cardiomyopathy Mayito Maria M.D. 04/21/2019 I44.2 Atrioventricular block, complete Skyla Nita, HIGH DENSITY FINISHING OPERATOR 04/21/2019 I51.81 Takotsubo syndrome Severo Montgomery M.D., [facility], [facility] 04/21/2019 I10 Essential (primary) hypertension Skyla Nita, HIGH DENSITY FINISHING OPERATOR 04/20/2019 I44.2 Atrioventricular block, complete Skyla [place], HIGH DENSITY FINISHING OPERATOR 04/20/2019 I51.81 Takotsubo syndrome Severo Montgomery M.D., [facility], [facility] 04/20/2019 R07.9 Chest pain, unspecified Skyla [place], HIGH DENSITY FINISHING OPERATOR 04/20/2019 I10 Essential (primary) hypertension Skyla Moya, HIGH DENSITY FINISHING OPERATOR 04/19/2019 I51.81 Takotsubo cardiomyopathy Chelle Bailey M.D. 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 insufficiency 04/18/2019 R07.9 Chest pain, unspecified Lynnette Gunter MD, [facility] 04/18/2019 R07.9 Chest pain, unspecified Mayito Maria [...] 12:00 pm - Mayito Maria M.D. at [facility]05/16/2019 3:00 pm - Ica ECHO Schedule at [facility]05/16/2019 3:30 pm - Ica Pacer Schedule at [facility]2019 9:30 am - Reji Colorado M.D. at [facility] Services Of [facility]04/24 - Mayito Maria M.D.I44.2 Atrioventricular block, completeNew Orders: Echocardiogram, Scheduled: 05/16/19Interrogation Pacemaker, Scheduled: Follow up:1 [id number] Essential (primary) [id number] Takotsubo cardiomyopathy Functional Status Description No Information Available Mental Status Description No Information Available Referrals Description No Information Available
--- OUTSIDE RECORDS SUMMARY | 2019-05-28 12:08 | XMS REPORT | Continuity of Care Document ---
:1930 External Reference #:[id number] Author Name Mayito Maria M.D. (transmitted by agent of provider Trini Thornton) Address [address] [place] [address] Care Team Providers Name Role Phone Jeff Desai MD - Family Care Team Information Web Methods Developer [phone] Medicine Problems Active Problems Provider Date Essential [...] Result H/L Range Note CBC Auto 04/13/2019 [facility] White Blood 5.9 10^3/uL Normal 3.5-10.[address] [place] [address] [phone] Red Blood Count 3.81 10^6/uL Normal 3.70-4.87 [...] Blood Cells % 0.1 Basic Metabolic 04/13/2019 [facility] Sodium 139 mmol/L Normal 135-145 Panel [address] [place] [address] [phone] Potassium 4.4 mmol/L Normal 3.5-5.0 Chloride 104 mmol/L Normal 101-111 Co2 Carbon Dioxide 28 mmol/L Normal 22-32 Anion Gap 7 mmol/L Normal 2-11 Glucose 96 mg/dL Normal 70-100 Blood Urea Nitrogen 16 mg/dL Normal 6-24 Creatinine 0.64 mg/dL Normal 0.51-0.95 BUN/Creatinine Ratio 25.0 High 8-20 Calcium 8.9 mg/dL Normal 8.6-10.3 Egfr Non- 87.8 >60 Egfr 106.2 >60 1 Inr/Protime 04/13/2019 [facility] Inr 1.03 Normal 0.82-1.[address] [place] [address] [phone] Laboratory test 04/13/2019 [facility] Partial 33.6 Normal 26.0 -38.[address] [address] Time PTT [phone] Pre Cath Panel 04/12/2019 [facility] Partial <pending> [address] [place] [address] Time PTT [phone] 1 Because ethnic data is not always [...] 2.5-3.5 Procedures Date Code Description Status 04/18/2019 79021 ECHO Transthorasic Realtime 2D W Doppler & Color Flow Hosp Completed 04/18/2019 32394 Perm Pacemaker Av Sequential Atrial And Ventricular Completed 04/12/2019 71536 ECHO Transthoracic, Real-Time 2D With Doppler And Color Completed Flow 04/12/2019 69044 ECHO Transthoracic, Real-Time 2D With Doppler And Color Completed Flow 04/12/2019 12451 EKG Tracing & Interpretation Completed Medical Devices Description No Information Available Encounters Type Date Location Provider Dx Diagnosis Office Visit 04/12/2019 [facility] Mayito Ruggiero I10 Essential ( primary) 1:30p [place] Maria M.D. hypertension I34.0 Nonrheumatic mitral (valve) insufficiency I44.30 Unspecified atrioventricular block Office Visit 11/07/2018 1:15p [facility] Saadia M97.31xD Periprosth fx at [facility] Cee M.D. around internal prosth r shoulder jt, subs M25.511 Pain in right shoulder Assessments Date Code Description Provider 04/25/2019 I44.2 Atrioventricular block, complete Mayito Maria M.D. 04/25/2019 I10 Essential (primary) hypertension Mayito Maria M.D. 04/25/2019 I51.81 Takotsubo cardiomyopathy Mayito Maria M.D. 04/18/2019 R07.9 Chest pain, unspecified Mayito Maria M.D. 04/18/2019 I44.2 Atrioventricular block, complete Mayito Maria M.D. 04/12/2019 I44.30 Unspecified atrioventricular block Mayito Maria M.D. 04/12/2019 I44.30 Unspecified atrioventricular block Traveling ECHO 1 04/12/2019 I10 Essential (primary) hypertension Mayito Maria M.D. 04/12/2019 I34.0 Nonrheumatic mitral (valve) insufficiency Mayito Maria M.D. 04/12/2019 I44.30 Atrioventricular block Mayito Maria M.D. 11/07/2018 M97.31xD Periprosthetic fracture around internal Saadia Cee M.D. prosthetic right lexis 11/07/2018 M25.511 Pain in right shoulder Saadia Cee M.D. Plan of Treatment Future Appointment(s):06/09/2019 12:00 pm - Mayito Maria M.D. at [facility]05/16/2019 3:00 pm - Ica ECHO Schedule at [facility]05/16/2019 3:30 pm - Ica Pacer Schedule at [facility]2019 9:30 am - Reji [place] M.D. at [facility]04/24 - Mayito Maria M.D.I44.2 Atrioventricular block, completeNew Orders: Echocardiogram, Scheduled: 05/16/19Interrogation Pacemaker, Scheduled: Follow up:1 [id number] Essential (primary) zfvjqpdwrleqB69.81 Takotsubo cardiomyopathy Functional Status Description No Information Available Mental Status Description No Information Available Referrals Description No Information Available
--- OUTSIDE RECORDS SUMMARY | 2019-05-28 12:08 | XMS REPORT | Continuity of Care Document ---
:1930 External Reference #:[id number] Author Name Mayito Maria M.D. (transmitted by agent of provider Micaela Pressley) Address [address] [place] [address] Care Team Providers Name Role Phone Jeff Desai MD - Family Care Team Information Engineer/Conductor [phone] Medicine Problems Active Problems Provider Date Essential [...] Unknown Never Smoked Cigarettes Smoking Status Reviewed: 04/12/19 Never Smoked Cigarettes ETOH Use Consumes 1 [...] 500mg Tablets every 4 hours as needed Medications Administered in Office Medication SIG Qnty [...] Available Vital Signs Date Vital Result Comment 04/12/2019 1:16pm Height 61 inches 5'1" Weight 111.25 lb with shoes Heart Rate 46 /min BP Systolic Sitting 120 mmHg Ra BP Diastolic Sitting 76 mmHg Ra BP Systolic Standing 110 mmHg Ra BP Diastolic Standing 70 mmHg Ra BMI (Body Mass Index) 21.0 kg/m2 Ejection Fraction 60-65% Echo 03/17/18 11/07/2018 1:20pm Height 61 inches 5'1" Weight 110.00 lb BP Systolic 126 mmHg BP Diastolic 82 mmHg Respiratory Rate 14 /min Body Temperature 97.3 F Pain Level 0 BMI (Body Mass Index) 20.8 kg/m2 Results Test Acquired Date Facility Test Result H/L Range Note CBC Auto 04/13/2019 [facility] White Blood 5.9 10^3/uL Normal 3.5-10.[address] [place] [address] [phone] Red Blood Count 3.81 10^6/uL Normal 3.70-4.87 [...] Blood Cells % 0.1 Basic Metabolic 04/13/2019 [facility] Sodium 139 mmol/L Normal 135-[address] [place] [address] [phone] Potassium 4.4 mmol/L Normal 3.5-5.0 Chloride 104 mmol/L Normal 101-111 Co2 Carbon Dioxide 28 mmol/L Normal 22-32 Anion Gap 7 mmol/L Normal 2-11 Glucose 96 mg/dL Normal 70-100 Blood Urea Nitrogen 16 mg/dL Normal 6-24 Creatinine 0.64 mg/dL Normal 0.51-0.95 BUN/Creatinine Ratio 25.0 High 8-20 Calcium 8.9 mg/dL Normal 8.6-10.3 Egfr Non- 87.8 >60 Egfr 106.2 >60 1 Inr/Protime 04/13/2019 [facility] Inr 1.03 Normal 0.82-1.[address] [place] [address] [phone] Laboratory test 04/13/2019 [facility] Partial 33.6 Normal 26.0 -38.[address] [place] [address] Time PTT [phone] Pre Cath Panel 04/12/2019 [facility] Partial <pending> [address] [place] [address] Time PTT [phone] 1 Because ethnic data is not always [...] 2.5-3.5 Procedures Date Code Description Status 04/18/2019 75890 ECHO Transthorasic Realtime 2D W Doppler & Color Flow Hosp Completed 04/18/2019 12967 Perm Pacemaker Av Sequential Atrial And Ventricular Completed 04/12/2019 54334 ECHO Transthoracic, Real-Time 2D With Doppler And Color Completed Flow 04/12/2019 79198 ECHO Transthoracic, Real-Time 2D With Doppler And Color Completed Flow 04/12/2019 81788 EKG Tracing & Interpretation Completed Medical Devices Description No Information Available Encounters Type Date Location Provider Dx Diagnosis Office Visit 04/12/2019 [facility] Mayito Ruggiero I10 Essential ( primary) 1:30p [place] Maria M.D. hypertension I34.0 Nonrheumatic mitral (valve) insufficiency I44.30 Unspecified atrioventricular block Office Visit 11/07/2018 1:15p [facility] Saadia M97.31xD Periprosth fx at [facility] Cee M.D. around internal prosth r shoulder jt, subs M25.511 Pain in right shoulder Assessments Date Code Description Provider 04/18/2019 I44.2 Atrioventricular block, complete Mayito Maria [...] Saadia Cee M.D. Plan of Treatment Future Appointment(s):07/18/2019 9:30 am - Reji [place] M.D. at [facility]04/12/2019 - Mayito Maria M.D.I10 Essential ( primary) wqcaxurzembfI49.0 Nonrheumatic mitral (valve) qxykjxgbtmxmwI69.30 Atrioventricular blockNew Orders:Implant Pacemaker, Scheduled: 04/18/19Follow up :1 week after pacer Functional Status Description No Information Available Mental Status Description No Information Available Referrals Description No Information Available
--- OUTSIDE RECORDS SUMMARY | 2019-05-28 12:08 | XMS REPORT | Continuity of Care Document ---
:1930 External Reference #:[id number] Author Name Chelle Bailey M.D. (transmitted by agent of provider Trini Thornton) Address [address] [place] [address] Care Team Providers Name Role Phone Jeff Desai MD - Family Care Team Information Solar/Renewable Energy Sales [phone] Medicine Problems Active Problems Provider Date Essential [...] Result H/L Range Note CBC Auto 04/13/2019 [facility] White Blood 5.9 10^3/uL Normal 3.5-10.[address] [place] [address] [phone] Red Blood Count 3.81 10^6/uL Normal 3.70-4.87 [...] Blood Cells % 0.1 Basic Metabolic 04/13/2019 [facility] Sodium 139 mmol/L Normal 135-145 Panel [address] [place] [address] [phone] Potassium 4.4 mmol/L Normal 3.5-5.0 Chloride 104 mmol/L Normal 101-111 Co2 Carbon Dioxide 28 mmol/L Normal 22-32 Anion Gap 7 mmol/L Normal 2-11 Glucose 96 mg/dL Normal 70-100 Blood Urea Nitrogen 16 mg/dL Normal 6-24 Creatinine 0.64 mg/dL Normal 0.51-0.95 BUN/Creatinine Ratio 25.0 High 8-20 Calcium 8.9 mg/dL Normal 8.6-10.3 Egfr Non- 87.8 >60 Egfr 106.2 >60 1 Inr/Protime 04/13/2019 [facility] Inr 1.03 Normal 0.82-1.[address] [place] [address] [phone] Laboratory test 04/13/2019 [facility] Partial 33.6 Normal 26.0 -38.[address] [place] [address] Time PTT [phone] Pre Cath Panel 04/12/2019 [facility] Partial <pending> [address] [place] [address] Time PTT [phone] 1 Because ethnic data is not always [...] 2.5-3.5 Procedures Date Code Description Status 04/18/2019 19001 Left Heart Cath. Incl S/I Coronaries, Angio S/I V Gram If Completed Done 04/18/2019 41811 ECHO Transthorasic Realtime 2D W Doppler & Color Flow Hosp Completed 04/18/2019 76615 Perm Pacemaker Av Sequential Atrial And Ventricular Completed 04/12/2019 72946 ECHO Transthoracic, Real-Time 2D With Doppler And Color Completed Flow 04/12/2019 72242 ECHO Transthoracic, Real-Time 2D With Doppler And Color Completed Flow 04/12/2019 12964 EKG Tracing & Interpretation Completed Medical Devices Description No Information Available Encounters Type Date Location Provider Dx Diagnosis Office Visit 04/25/2019 [facility] Mayito Ruggiero I44.2 Atrioventricular block, 1:00p Of Batt Machine Operator AT [facility] Stephane Maria complete I10 Essential (primary) hypertension I51.81 Takotsubo syndrome Office Visit 04/19/2019 3:55p [facility] Chelle Bailey, I51.81 Takotsubo [place] Calderón syndrome I25.10 Athscl heart disease of [place] coronary artery w/o ang pctrs I34.0 Nonrheumatic mitral (valve) insufficiency Office Visit 04/12/2019 1:30p [facility] Mayito Ruggiero I10 Essential (primary) [place] Maria M.D. hypertension I34.0 Nonrheumatic mitral (valve) insufficiency I44.30 Unspecified atrioventricular block Office Visit 11/07/2018 1:15p [facility] Saadia M97.31xD Periprosth fx at [facility] Stephane Cee around internal prosth r shoulder jt, subs M25.511 Pain in right shoulder Assessments Date Code Description Provider 04/25/2019 I44.2 Atrioventricular block, complete Mayito Maria M.D. 04/25/2019 I10 Essential (primary) hypertension Mayito Maria M.D. 04/25/2019 I51.81 Takotsubo cardiomyopathy Mayito Maria M.D. 04/21/2019 I51.81 Takotsubo syndrome Severo Montgomery M.D., [facility] 04/20/2019 I51.81 Takotsubo syndrome Severo Montgomery M.D., [facility] 04/19/2019 I51.81 Takotsubo cardiomyopathy Chelle Bailey M.D. 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 insufficiency 04/18/2019 R07.9 Chest pain, unspecified Lynnette Gunter MD, [facility] 04/18/2019 R07.9 Chest pain, unspecified Mayito Maria M.D. 04/18/2019 I44.2 Atrioventricular block, complete Mayito Maria M.D. 04/12/2019 I44.30 Unspecified atrioventricular block Mayito Maria M.D. 04/12/2019 I44.30 Unspecified atrioventricular block Traveling ECHO 1 04/12/2019 I10 Essential (primary) hypertension Mayito Maria M.D. 04/12/2019 I34.0 Nonrheumatic mitral (valve) Mayito Maria M.D. insufficiency 04/12/2019 I44.30 Atrioventricular block Mayito Maria M.D. 11/07/2018 M97.31xD Periprosthetic fracture around Saadia Cee M.D. internal prosthetic right lexis 11/07/2018 M25.511 Pain in right shoulder Saadia Cee M.D. Plan of Treatment Future Appointment(s):06/09/2019 12:00 pm - Mayito Maria M.D. at [facility]05/16/2019 3:00 pm - Ica ECHO Schedule at [facility]05/16/2019 3:30 pm - Ica Pacer Schedule at [facility]2019 9:30 am - Reji [place] M.D. at [facility]04/24 - Mayito Maria M.D.I44.2 Atrioventricular block, completeNew Orders: Echocardiogram, Scheduled: 05/16/19Interrogation Pacemaker, Scheduled: Follow up:1 [id number] Essential (primary) stkpnswrjjgkU21.81 Takotsubo cardiomyopathy Functional Status Description No Information Available Mental Status Description No Information Available Referrals Description No Information Available
--- OUTSIDE RECORDS SUMMARY | 2019-05-28 12:08 | XMS REPORT | Continuity of Care Document ---
:1930 External Reference #:[id number] Author Name Mayito Maria M.D. (transmitted by agent of provider Deborah Crenshaw) Address [address] [place] [address] Care Team Providers Name Role Phone Jeff Desai MD - Family Care Team Information Fish Straightener [phone] Medicine Problems Active Problems Provider Date Essential [...] Date Facility Test Result H/L Range Note Pre Cath Panel 04/12/2019 [facility] Partial Thrombo <pending> [address] [place] [address] [phone] Procedures Date Code Description Status 04/12/2019 41054 EKG Tracing & Interpretation Completed Medical Devices Description No Information Available Encounters Type Date Location Provider Dx Diagnosis Office Visit 11/07/2018 [facility] Saadia [place], M9Yisel.31xD Periprosth fx 1:15p at [facility] Calderón around internal prosth r shoulder jt, subs M25.511 Pain in right shoulder Assessments Date Code Description Provider 04/12/2019 I10 Essential (primary) hypertension Mayito Maria M.D. 04/12/2019 I34.0 Nonrheumatic mitral (valve) insufficiency Mayito Maria M.D. 04/12/2019 I44.30 Atrioventricular block Mayito Maria M.D. 11/07/2018 M97.31xD Periprosthetic fracture around internal Saadia Cee M.D. prosthetic right lexis 11/07/2018 M25.511 Pain in right shoulder Saadia Cee M.D. Plan of Treatment Future Appointment(s):04/25/2019 1:00 pm - Mayito Maria M.D. at [facility]04/18/2019 8:30 am - Mayito Maria M.D. at [facility]07/18/2019 9:30 am - Reji [place] M.D. at [facility]04/12/2019 - Mayito Maria M.D.I10 Essential ( primary) uvrxvhhgybfeI84.0 Nonrheumatic mitral (valve) lclomtjvcptvcZ86.30 Atrioventricular blockNew Orders:Echocardiogram, Scheduled: 04/12/19Implant Pacemaker, Ordered: 04/12/19Follow up:1 week after pacer Functional Status Description No Information Available Mental Status Description No Information Available Referrals Description No Information Available
--- OUTSIDE RECORDS SUMMARY | 2019-05-28 12:08 | XMS REPORT | Continuity of Care Document ---
:1930 External Reference #:[id number] Author Name Severo Montgomery M.D., [facility], [facility] (transmitted by agent of provider Trini Thornton) Address [address] [place] [address] Care Team Providers Name Role Phone Jeff Desai MD - Family Care Team Information Log Loader Helper [phone] Medicine Problems Active Problems Provider Date Essential tremor Reji Colorado M.D. Onset: 12/26/2013 Mitral valve disorder Mayito Maria M.D. Onset: 01/31/2015 Strain of rotator cuff capsule Juan R Hobbs MD Onset: 01/07/2017 Localized, primary osteoarthritis Juan R Hbobs MD Onset: 01/07/2017 Acquired genu valgum Saadia [...] Result H/L Range Note CBC Auto 04/13/2019 [facility] White Blood 5.9 10^3/uL Normal 3.5-10.8 Diff [address] [facility] [place] [address] [phone] Red Blood Count 3.81 10^6/uL Normal 3.70-4.87 [...] Blood Cells % 0.1 Basic Metabolic 04/13/2019 [facility] Sodium 139 mmol/L Normal 135-[address] [place] [address] [phone] Potassium 4.4 mmol/L Normal 3.5-5.0 Chloride 104 mmol/L Normal 101-111 Co2 Carbon Dioxide 28 mmol/L Normal 22-32 Anion Gap 7 mmol/L Normal 2-11 Glucose 96 mg/dL Normal 70-100 Blood Urea Nitrogen 16 mg/dL Normal 6-24 Creatinine 0.64 mg/dL Normal 0.51-0.95 BUN/Creatinine Ratio 25.0 High 8-20 Calcium 8.9 mg/dL Normal 8.6-10.3 Egfr Non- 87.8 >60 Egfr 106.2 >60 1 Inr/Protime 04/13/2019 [facility] Inr 1.03 Normal 0.82-1.09 2 [address] [place] [address] [phone] Laboratory test 04/13/2019 [facility] Partial 33.6 Normal 26.0 -38.[address] [place] [address] Time PTT [phone] Pre Cath Panel 04/12/2019 [facility] Partial <pending> [address] [place] [address] Time PTT [phone] 1 Because ethnic data is not always [...] 2.5-3.5 Procedures Date Code Description Status 04/18/2019 39622 Left Heart Cath. Incl S/I Coronaries, Angio S/I V Gram If Completed Done 04/18/2019 89755 ECHO Transthorasic Realtime 2D W Doppler & Color Flow Hosp Completed 04/18/2019 33665 Perm Pacemaker Av Sequential Atrial And Ventricular Completed 04/12/2019 77464 ECHO Transthoracic, Real-Time 2D With Doppler And Color Completed Flow 04/12/2019 63363 ECHO Transthoracic, Real-Time 2D With Doppler And Color Completed Flow 04/12/2019 15398 EKG Tracing & Interpretation Completed Medical Devices Description No Information Available Encounters Type Date Location Provider Dx Diagnosis Office Visit 04/25/2019 [facility] Mayito Ruggiero I44.2 Atrioventricular block, 1:00p Of Clay Temperer AT [facility] Stephane Maria complete I10 Essential (primary) hypertension I51.81 Takotsubo syndrome Office Visit 04/21/2019 11:46a [facility] Severo Martinez I51.81 Takotsubo [place] Montgomery M.D., syndrome FACYi, [facility] Office Visit 04/20/2019 11:48a [facility] Severo Martinze I51.81 Takotsubo [place] Montgomery M.D., syndrome FACC, [facility] Office Visit 04/19/2019 3:55p [facility] Chelle Bailey I51.81 Takotsubo [place] Calderón syndrome I25.10 Athscl heart disease of [place] coronary artery w/o ang pctrs I34.0 Nonrheumatic mitral (valve) insufficiency Office Visit 04/12/2019 1:30p [facility] Mayito Ruggiero I10 Essential (primary) [place] Maria M.D. hypertension I34.0 Nonrheumatic mitral (valve) insufficiency I44.30 Unspecified atrioventricular block Office Visit 11/07/2018 1:15p [facility] Saadia M97.31xD Periprosth fx at [place] Cee M.D. around internal prosth r shoulder jt, subs M25.511 Pain in right shoulder Assessments Date Code Description Provider 04/25/2019 I44.2 Atrioventricular block, complete Mayito Maria M.D. 04/25/2019 I10 Essential (primary) hypertension Mayito Maria M.D. 04/25/2019 I51.81 Takotsubo cardiomyopathy Mayito Maria M.D. 04/21/2019 I51.81 Takotsubo syndrome Severo Montgomery M.D., [facility] 04/20/2019 I51.81 Takotsubo syndrome Severo Montgomery M.D., [facility], [facility] 04/19/2019 I51.81 Takotsubo cardiomyopathy Chelle Bailey M.D. 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 insufficiency 04/18/2019 R07.9 Chest pain, unspecified Lynnette Gunter MD, [facility], [facility] 04/18/2019 R07.9 Chest pain, unspecified [...] 12:00 pm - Mayito Maria M.D. at [facility]05/16/2019 3:00 pm - Ica ECHO Schedule at [facility]05/16/2019 3:30 pm - Ica Pacer Schedule at [facility]2019 9:30 am - Reji Colorado M.D. at [facility]04/24 - Mayito Maria M.D.I44.2 Atrioventricular block, completeNew Orders: Echocardiogram, Scheduled: 05/16/19Interrogation Pacemaker, Scheduled: Follow up:1 [id number] Essential (primary) uxsihmekefozN81.81 Takotsubo cardiomyopathy Functional Status Description No Information Available Mental Status Description No Information Available Referrals Description No Information Available
--- OUTSIDE RECORDS SUMMARY | 2019-05-28 12:08 | XMS REPORT | Continuity of Care Document ---
:1930 External Reference #:[id number] Author Name Mayito Maria M.D. (transmitted by agent of provider Trini Thornton) Address [address] [place] [address] Care Team Providers Name Role Phone Jeff Desai MD - Family Care Team Information Soaker Hides [phone] Medicine Problems Active Problems Provider Date Essential tremor Reji oClorado M.D. Onset: 12/26/2013 Mitral valve disorder Mayito [...] Result H/L Range Note CBC Auto 04/13/2019 [facility] White Blood 5.9 10^3/uL Normal 3.5-10.[address] [place] [address] [phone] Red Blood Count 3.81 10^6/uL Normal 3.70-4.87 [...] Blood Cells % 0.1 Basic Metabolic 04/13/2019 [facility] Sodium 139 mmol/L Normal 135-145 Panel [address] [place] [address] [phone] Potassium 4.4 mmol/L Normal 3.5-5.0 Chloride 104 mmol/L Normal 101-111 Co2 Carbon Dioxide 28 mmol/L Normal 22-32 Anion Gap 7 mmol/L Normal 2-11 Glucose 96 mg/dL Normal 70-100 Blood Urea Nitrogen 16 mg/dL Normal 6-24 Creatinine 0.64 mg/dL Normal 0.51-0.95 BUN/Creatinine Ratio 25.0 High 8-20 Calcium 8.9 mg/dL Normal 8.6-10.3 Egfr Non- 87.8 >60 Egfr 106.2 >60 1 Inr/Protime 04/13/2019 [facility] Inr 1.03 Normal 0.82-1.[address] [place] [address] [phone] Laboratory test 04/13/2019 [facility] Partial 33.6 Normal 26.0 -38.[address] [place] [address] Time PTT [phone] Pre Cath Panel 04/12/2019 [facility] Partial <pending> [address] [place] [address] Time PTT [phone] 1 Because ethnic data is not always [...] 2.5-3.5 Procedures Date Code Description Status 04/18/2019 92632 ECHO Transthorasic Realtime 2D W Doppler & Color Flow Hosp Completed 04/18/2019 08160 Perm Pacemaker Av Sequential Atrial And Ventricular Completed 04/12/2019 59749 ECHO Transthoracic, Real-Time 2D With Doppler And Color Completed Flow 04/12/2019 54328 ECHO Transthoracic, Real-Time 2D With Doppler And Color Completed Flow 04/12/2019 43130 EKG Tracing & Interpretation Completed Medical Devices Description No Information Available Encounters Type Date Location Provider Dx Diagnosis Office Visit 04/25/2019 [facility] Ruggiero I44.2 Atrioventricular block, 1:00p Of Predictive Maintenance Specialist AT [facility] Maria M.D. complete I10 Essential (primary) hypertension I51.81 Takotsubo syndrome Office Visit 04/12/2019 1:30p [facility] Ruggiero I10 Essential (primary) [place] Maria M.D. hypertension I34.0 Nonrheumatic mitral (valve) insufficiency I44.30 Unspecified atrioventricular block Office Visit 11/07/2018 1:15p [facility] Saadia M97.31xD Periprosth fx at [facility] [...] 12:00 pm - Mayito Maria M.D. at [facility]05/16/2019 3:00 pm - Ica ECHO Schedule at [facility]05/16/2019 3:30 pm - Ica Pacer Schedule at [facility]2019 9:30 am - Reji Colorado M.D. at [facility]04/24 - Mayito Maria M.D.I44.2 Atrioventricular block, completeNew Orders: Echocardiogram, Scheduled: 05/16/19Interrogation Pacemaker, Scheduled: Follow up:1 [id number] Essential (primary) [id number] Takotsubo cardiomyopathy Functional Status Description No Information Available Mental Status Description No Information Available Referrals Description No Information Available
--- OUTSIDE RECORDS SUMMARY | 2019-05-28 12:08 | XMS REPORT | Continuity of Care Document ---
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 Carman [phone] Medicine Problems Active Problems Provider Date Essential [...] Result H/L Range Note CBC Auto 04/13/2019 [facility] White Blood 5.9 10^3/uL Normal 3.5-10.[address] [place] [address] [phone] Red Blood Count 3.81 10^6/uL Normal 3.70-4.87 [...] Blood Cells % 0.1 Basic Metabolic 04/13/2019 [facility] Sodium 139 mmol/L Normal 135-145 Panel [address] [place] [address] [phone] Potassium 4.4 mmol/L Normal 3.5-5.0 Chloride 104 mmol/L Normal 101-111 Co2 Carbon Dioxide 28 mmol/L Normal 22-32 Anion Gap 7 mmol/L Normal 2-11 Glucose 96 mg/dL Normal 70-100 Blood Urea Nitrogen 16 mg/dL Normal 6-24 Creatinine 0.64 mg/dL Normal 0.51-0.95 BUN/Creatinine Ratio 25.0 High 8-20 Calcium 8.9 mg/dL Normal 8.6-10.3 Egfr Non- 87.8 >60 Egfr 106.2 >60 1 Inr/Protime 04/13/2019 [facility] Inr 1.03 Normal 0.82-1.09 2 [address] [place], [place] [address] [phone] Laboratory test 04/13/2019 [facility] Partial 33.6 Normal 26.0 -38.[address] [place] [place] [address] Time PTT [phone] Pre Cath Panel 04/12/2019 [facility] Partial <pending> [address] [place] [address] Time PTT [phone] 1 Because ethnic data is not always [...] 2.5-3.5 Procedures Date Code Description Status 04/18/2019 22180 Left Heart Cath. Incl S/I Coronaries, Angio S/I V Gram If Completed Done 04/18/2019 69923 ECHO Transthorasic Realtime 2D W Doppler & Color Flow Hosp Completed 04/18/2019 39097 Perm Pacemaker Av Sequential Atrial And Ventricular Completed 04/12/2019 40631 ECHO Transthoracic, Real-Time 2D With Doppler And Color Completed Flow 04/12/2019 72775 ECHO Transthoracic, Real-Time 2D With Doppler And Color Completed Flow 04/12/2019 09553 EKG Tracing & Interpretation Completed Medical Devices Description No Information Available Encounters Type Date Location Provider Dx Diagnosis Office Visit 04/25/2019 [facility] Mayito Ruggiero I44.2 Atrioventricular block, 1:00p Of Lingo Cleaner AT [facility] Stephane Maria complete I10 Essential (primary) hypertension I51.81 Takotsubo syndrome Office Visit 04/21/2019 11:46a [facility] Severo Juan I51.81 Takotsubo [place] Montgomery M.D., syndrome FAC, [facility] Office Visit 04/20/2019 11:48a [facility] Severo Martinez I51.81 Takotsubo [place] Montgomery M.D., syndrome FAC, [facility] Office Visit 04/19/2019 3:55p [facility] Chelle Bailey I51.81 Takotsubo [place] Calderón syndrome I25.10 Athscl heart disease of [place] coronary artery w/o ang pctrs I34.0 Nonrheumatic mitral (valve) insufficiency Office Visit 04/12/2019 1:30p [facility] Mayito Ruggiero I10 Essential (primary) [place] Maria M.D. hypertension I34.0 Nonrheumatic mitral (valve) insufficiency I44.30 Unspecified atrioventricular block Office Visit 11/07/2018 1:15p [facility] Saadia M97.31xD Periprosth fx at [facility] Cee M.D. around internal prosth r shoulder jt, subs M25.511 Pain in right shoulder Assessments Date Code Description Provider 04/25/2019 I44.2 Atrioventricular block, complete Mayito Maria M.D. 04/25/2019 I10 Essential (primary) hypertension Mayito Maria M.D. 04/25/2019 I51.81 Takotsubo cardiomyopathy Mayito Maria M.D. 04/21/2019 I51.81 Takotsubo syndrome Severo Montgomery M.D., [facility], [facility] 04/20/2019 I51.81 Takotsubo syndrome Severo Montgomery M.D., [facility], [facility] 04/19/2019 I51.81 Takotsubo cardiomyopathy Chelle Bailey M.D. 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 insufficiency 04/18/2019 R07.9 Chest pain, unspecified Lynnette Gunter MD, [facility], [facility] 04/18/2019 R07.9 Chest pain, unspecified Mayito Maria [...] 12:00 pm - Mayito Maria M.D. at [facility]05/16/2019 3:00 pm - Ica ECHO Schedule at [facility]05/16/2019 3:30 pm - Ica Pacer Schedule at [facility]2019 9:30 am - Reji Colorado M.D. at [facility]04/24 - Mayito Maria M.D.I44.2 Atrioventricular block, completeNew Orders: Echocardiogram, Scheduled: 05/16/19Interrogation Pacemaker, Scheduled: Follow up:1 [id number] Essential (primary) qjwlouxqwjmaL93.81 Takotsubo cardiomyopathy Functional Status Description No Information Available Mental Status Description No Information Available Referrals Description No Information Available
--- OUTSIDE RECORDS SUMMARY | 2019-05-28 12:08 | XMS REPORT | Continuity of Care Document ---
:1930 External Reference #:[id number] Author Name Mayito Maria M.D. (transmitted by agent of provider Micaela Pressley) Address [address] [place] [address] Care Team Providers Name Role Phone Jeff Desai MD - Family Care Team Information Repairer Maintenance Building [phone] Medicine Problems Active Problems Provider Date Essential [...] Unknown Never Smoked Cigarettes Smoking Status Reviewed: 11/07/18 Never Smoked Cigarettes ETOH Use Consumes 1 [...] Available Vital Signs Date Vital Result Comment 11/07/2018 1:20pm Height 61 inches 5'1" Weight 110.00 lb BP Systolic 126 mmHg BP Diastolic 82 mmHg Respiratory Rate 14 /min Body Temperature 97.3 F Pain Level 0 BMI (Body Mass Index) 20.8 kg/m2 09/05/2018 3:20pm Height 61 inches 5'1" Weight 110.00 lb BP Systolic 134 mmHg BP Diastolic 76 mmHg Body Temperature 98.0 F BMI (Body Mass Index) 20.8 kg/m2 Results Description No Information Available Procedures Description No Information Available Medical Devices Description No Information Available Encounters Type Date Location Provider Dx Diagnosis Office Visit 11/07/2018 [facility] Saadia Cee, M97.31xD [facility] r shoulder jt, subs M25.511 Pain in right shoulder Assessments Date Code Description Provider 11/07/2018 M97.31xD Periprosthetic fracture around internal Saadia Cee M.D. prosthetic right lexis 11/07/2018 M25.511 Pain in right shoulder Saadia Cee M.D. Plan of Treatment 11/07/2018 - Saadia Cee M.D.M97.31xD Periprosthetic fracture around internal prosthetic right shoFollow up:Follow up: As yaplvrM76.511 Pain in right shoulder Functional Status Description No Information Available Mental Status Description No Information Available Referrals Description No Information Available
--- OUTSIDE RECORDS SUMMARY | 2019-05-28 12:08 | XMS REPORT | Continuity of Care Document ---
:1930 External Reference #:[id number] Author Name Mayito Maria M.D. (transmitted by agent of provider Dai Castelan) Address [address] [place] [address] Care Team Providers Name Role Phone Jeff Desai MD - Family Care Team Information Molecular Modeler [phone] Medicine Problems Active Problems Provider Date Essential [...] Result H/L Range Note CBC Auto 04/13/2019 [facility] White Blood 5.9 10^3/uL Normal 3.5-10.[address] [place] [address] [phone] Red Blood Count 3.81 10^6/uL Normal 3.70-4.87 [...] Blood Cells % 0.1 Basic Metabolic 04/13/2019 [facility] Sodium 139 mmol/L Normal 135-145 Panel [address] [place] [address] [phone] Potassium 4.4 mmol/L Normal 3.5-5.0 Chloride 104 mmol/L Normal 101-111 Co2 Carbon Dioxide 28 mmol/L Normal 22-32 Anion Gap 7 mmol/L Normal 2-11 Glucose 96 mg/dL Normal 70-100 Blood Urea Nitrogen 16 mg/dL Normal 6-24 Creatinine 0.64 mg/dL Normal 0.51-0.95 BUN/Creatinine Ratio 25.0 High 8-20 Calcium 8.9 mg/dL Normal 8.6-10.3 Egfr Non- 87.8 >60 Egfr 106.2 >60 1 Inr/Protime 04/13/2019 [facility] Inr 1.03 Normal 0.82-1.[address] [place] [address] [phone] Laboratory test 04/13/2019 [facility] Partial 33.6 Normal 26.0 -38.[address] [place] [address] Time PTT [phone] Pre Cath Panel 04/12/2019 [facility] Partial <pending> [address] [place] [address] Time PTT [phone] 1 Because ethnic data is not always [...] 2.5-3.5 Procedures Date Code Description Status 04/18/2019 92380 ECHO Transthorasic Realtime 2D W Doppler & Color Flow Hosp Completed 04/18/2019 67532 Perm Pacemaker Av Sequential Atrial And Ventricular Completed 04/12/2019 92678 ECHO Transthoracic, Real-Time 2D With Doppler And Color Completed Flow 04/12/2019 00302 ECHO Transthoracic, Real-Time 2D With Doppler And Color Completed Flow 04/12/2019 87261 EKG Tracing & Interpretation Completed Medical Devices Description No Information Available Encounters Type Date Location Provider Dx Diagnosis Office Visit 04/12/2019 [facility] Mayito Ruggiero I10 Essential ( primary) 1:30p [place] Maria M.D. hypertension I34.0 Nonrheumatic mitral (valve) insufficiency I44.30 Unspecified atrioventricular block Office Visit 11/07/2018 1:15p [facility] Saadia M97.31xD Periprosth fx at [facility] Cee M.D. around internal prosth r shoulder jt, subs M25.511 Pain in right shoulder Assessments Date Code Description Provider 04/25/2019 I44.2 Atrioventricular block, complete Mayito Maria M.D. 04/25/2019 I10 Essential (primary) hypertension Mayito Maria M.D. 04/25/2019 I51.81 Takotsubo cardiomyopathy Mayito Maria M.D. 04/18/2019 I44.2 Atrioventricular block, [...] 12:00 pm - Mayito Maria M.D. at [facility]05/16/2019 3:00 pm - Ica ECHO Schedule at [facility]05/16/2019 3:30 pm - Ica Pacer Schedule at [facility]2019 9:30 am - Reji Colorado M.D. at [facility]04/24 - Mayito Maria M.D.I44.2 Atrioventricular block, completeNew Orders: Echocardiogram, Scheduled: 05/16/19Interrogation Pacemaker, Scheduled: Follow up:1 [id number] Essential (primary) kiurvayursctA57.81 Takotsubo cardiomyopathy Functional Status Description No Information Available Mental Status Description No Information Available Referrals Description No Information Available
--- OUTSIDE RECORDS SUMMARY | 2019-05-28 12:08 | XMS REPORT | Continuity of Care Document ---
:1930 External Reference #:[id number] Author Name Severo Montgomery M.D., [facility], [facility] (transmitted by agent of provider Trini Thornton) Address [address] [place] [address] Care Team Providers Name Role Phone Jeff Desai MD - Family Care Team Information Drop Wire Builder [phone] Medicine Problems Active Problems Provider Date Essential tremor Reji Colorado M.D. Onset: 12/26/2013 Mitral valve disorder Mayito Maria M.D. Onset: 01/31/2015 Strain of rotator cuff capsule Juan R Hobbs MD Onset: 01/07/2017 Localized, primary osteoarthritis Juan R Hobbs MD Onset: 01/07/2017 Acquired genu valgum aSadia Cee M.D. Onset: 03/05/2017 Periprosthetic fracture Saadia [...] Result H/L Range Note CBC Auto 04/13/2019 [facility] White Blood 5.9 10^3/uL Normal 3.5-10.[address] [facility] [place] [address] [phone] Red Blood Count 3.81 10^6/uL Normal 3.70-4.87 [...] Blood Cells % 0.1 Basic Metabolic 04/13/2019 [facility] Sodium 139 mmol/L Normal 135-[address] [place] [address] [phone] Potassium 4.4 mmol/L Normal 3.5-5.0 Chloride 104 mmol/L Normal 101-111 Co2 Carbon Dioxide 28 mmol/L Normal 22-32 Anion Gap 7 mmol/L Normal 2-11 Glucose 96 mg/dL Normal 70-100 Blood Urea Nitrogen 16 mg/dL Normal 6-24 Creatinine 0.64 mg/dL Normal 0.51-0.95 BUN/Creatinine Ratio 25.0 High 8-20 Calcium 8.9 mg/dL Normal 8.6-10.3 Egfr Non- 87.8 >60 Egfr 106.2 >60 1 Inr/Protime 04/13/2019 [facility] Inr 1.03 Normal 0.82-1.09 2 [address] [place] [address] [phone] Laboratory test 04/13/2019 [facility] Partial 33.6 Normal 26.0 -38.[address] [place] [address] Time PTT [phone] Pre Cath Panel 04/12/2019 [facility] Partial <pending> [address] [place] [address] Time PTT [phone] 1 Because ethnic data is not always [...] 2.5-3.5 Procedures Date Code Description Status 04/18/2019 91715 Left Heart Cath. Incl S/I Coronaries, Angio S/I V Gram If Completed Done 04/18/2019 54132 ECHO Transthorasic Realtime 2D W Doppler & Color Flow Hosp Completed 04/18/2019 04298 Perm Pacemaker Av Sequential Atrial And Ventricular Completed 04/12/2019 50278 ECHO Transthoracic, Real-Time 2D With Doppler And Color Completed Flow 04/12/2019 80556 ECHO Transthoracic, Real-Time 2D With Doppler And Color Completed Flow 04/12/2019 86636 EKG Tracing & Interpretation Completed Medical Devices Description No Information Available Encounters Type Date Location Provider Dx Diagnosis Office Visit 04/25/2019 [facility] Mayito Ruggiero I44.2 Atrioventricular block, 1:00p Of Disc Recordist AT [facility] Stephane Maria complete I10 Essential (primary) hypertension I51.81 Takotsubo syndrome Office Visit 04/21/2019 11:46a [facility] Severo Martinez I51.81 Takotsubo [place] Montgomery M.D., syndrome FACYi, [facility] Office Visit 04/20/2019 11:48a [facility] Severo Martinez I51.81 Takotsubo [place] Montgomery M.D., syndrome FACC, [facility] Office Visit 04/19/2019 3:55p [facility] Chelle Bailey I51.81 Takotsubo [place] Calderón syndrome I25.10 Athscl heart disease of [place] coronary artery w/o ang pctrs I34.0 Nonrheumatic mitral (valve) insufficiency Office Visit 04/12/2019 1:30p [facility] Mayito Ruggiero I10 Essential (primary) [place] Maria M.D. hypertension I34.0 Nonrheumatic mitral (valve) insufficiency I44.30 Unspecified atrioventricular block Office Visit 11/07/2018 1:15p [facility] Saadia M97.31xD Periprosth fx at [facility] Cee M.D. around internal prosth r shoulder jt, subs M25.511 Pain in right shoulder Assessments Date Code Description Provider 04/25/2019 I44.2 Atrioventricular block, complete Mayito Maria M.D. 04/25/2019 I10 Essential (primary) hypertension Mayito Maria M.D. 04/25/2019 I51.81 Takotsubo cardiomyopathy Mayito Maria M.D. 04/21/2019 I51.81 Takotsubo syndrome [facility]., [facility] 04/20/2019 I51.81 Takotsubo syndrome Severo Montgomery M.D., [facility], [facility] 04/19/2019 I51.81 Takotsubo cardiomyopathy Chelle Bailey M.D. 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 insufficiency 04/18/2019 R07.9 Chest pain, unspecified Lynnette Gunter MD, [facility], [facility] 04/18/2019 R07.9 Chest pain, unspecified [...] 12:00 pm - Mayito Maria M.D. at [facility]05/16/2019 3:00 pm - Ica ECHO Schedule at [facility]05/16/2019 3:30 pm - Ica Pacer Schedule at [facility]2019 9:30 am - Reji Colorado M.D. at [facility]04/24 - Mayito Maria M.D.I44.2 Atrioventricular block, completeNew Orders: Echocardiogram, Scheduled: 05/16/19Interrogation Pacemaker, Scheduled: Follow up:1 [id number] Essential (primary) htwrfhslffioR90.81 Takotsubo cardiomyopathy Functional Status Description No Information Available Mental Status Description No Information Available Referrals Description No Information Available
[2019-05-28 12:15] VITALS: BP 141/85
--- NOTE | 2019-05-28 12:18 | UC ---
Hand/Wrist HPI - HPI Summary HPI Summary: 88-year-old woman comes in with a chief complaint of not being able to remove her ring from her left ring finger due to bilateral hand edema. Patient had a pacemaker put in a couple weeks ago and edema is developed since. Patient has a ring on her left ring finger that she is now unable to get off. Reports she still has good sensation distally in the finger. The Bilateral hand edema decreases the patient's range of motion of her fingers. Denies shortness of breath. - History Of Current Complaint Stated Complaint: RING REMOVAL Time Seen by Provider: 05/28/19 12:08 - Allergies/Home Medications Allergies/Adverse Reactions: Allergies Allergy/AdvReac Type Severity Reaction Status Date / Time Sulfa (Sulfonamide Allergy Hives Verified 05/28/19 12:15 Antibiotics) Home Medications: Home Medications Primidone 50 mg TAB (*) [Mysoline 250 mg TAB (*)] 150 mg PO BEDTIME 04/21/17 [ History Confirmed 04/18/19] FLUoxetine CAP* [Prozac CAP*] 40 mg PO DAILY cap 07/07/18 [Rx Confirmed ] Lisinopril TAB* [Prinivil TAB 10 MG*] 10 mg PO DAILY tab 07/07/18 [Rx Confirmed 04/18/19] Atorvastatin* [Lipitor 20 MG*] 20 mg PO BEDTIME 04/17/19 [History Confirmed ] Primidone 50 mg TAB (*) [Mysoline 250 mg TAB (*)] 100 mg PO QAM 04/17/19 [ History Confirmed 04/18/19] Aspirin 81 mg CHEW TAB* 81 mg PO DAILY #30 tab.chew 04/21/19 [Rx] Metoprolol Succinate XL TAB* [Toprol XL TAB*] 25 mg PO DAILY #30 tab.xl [Rx] PMH/Surg Hx/FS Hx/Imm Hx Previously Healthy: Yes Endocrine History: Dyslipidemia Cardiovascular History: Hypertension - Surgical History Surgical History: Yes Surgery Procedure, Year, and Place: RIGHT REVERSE SHOULDER 2010 [facility]. 2008 [facility] BUNIONECTOMY. 2010 BILAT CATARACT [facility]. BILAT CTR 2007 [facility]. right total knee 2018, [facility]. L knee replacement, april 2018 - Family History Known Family History: Positive: Cardiac Disease - CAD, Other - Carcinoma - Social History Alcohol Use: Daily Alcohol Amount: 1-2 glasses of wine Substance Use Type: None Smoking Status (MU): Never Smoked Tobacco - Immunization History Most Recent Influenza Vaccination: 2018 Most Recent Tetanus Shot: UNKNOWN Most Recent Pneumonia Vaccination: 2017 Review of Systems All Other Systems Reviewed And Are Negative: Yes Constitutional: Positive: Negative Skin: Positive: Other - see hpi Eyes: Positive: Negative ENT: Positive: Negative Respiratory: Positive: Negative Cardiovascular: Positive: Negative Motor: Positive: Decreased ROM - see hpi Neurovascular: Positive: Negative Musculoskeletal: Positive: Edema - see hpi Neurological/Mental Status: Positive: Negative Psychological: Positive: Negative Is Patient Immunocompromised?: No Physical Exam Triage Information Reviewed: Yes Appearance: Well-Appearing, No Pain Distress, Well-Nourished Vital Signs Reviewed: Yes Eye Exam: Normal Eyes: Positive: Conjunctiva Clear Neck: Positive: Supple Respiratory: Positive: No respiratory distress Musculoskeletal: Positive: Other: - Patient has edema in both of her hands. She also has evidence of arthritis in her joints of her hands. She does have difficulty trying to make a fist with her hands due to the edema. Left ring finger has a ring on it. Normal sensation normal capillary refill distally. Neurological: Positive: Alert Psychological: Positive: Age Appropriate Behavior Hand/Wrist Course/Dx - Course Course Of Treatment: Ring was removed by nursing. Patient will follow-up with cardiology tomorrow about her edema. - Differential Dx/Diagnosis Provider Diagnosis: Edema of hand Discharge ED - Sign-Out/Discharge Documenting (check all that apply): Patient Departure All imaging exams completed and their final reports reviewed: No Studies - Discharge Plan Condition: Stable Disposition: HOME Patient Education Materials: Edema (ED) Referrals: Jeff Desai MD [Primary Care Provider] - Mayito Maria MD [Medical Doctor] - Additional Instructions: FOLLOW UP WITH YOUR SERVICE TEAM LEADER. GET REEVALUATED IF NOT IMPROVED OR WORSE OR ANY QUESTIONS OR CONCERNS. - Billing Disposition and Condition Condition: STABLE Disposition: Home
== END 2019-05-28 12:41 | disposition home or self-care (01) ==
LOC: UCEAST 11:58
DX: R60.0 Localized edema (principal); E78.5 Hyperlipidemia, unspecified; I10 Essential (primary) hypertension; Z79.899 Other long term (current) drug therapy; Z79.82 Long term (current) use of aspirin; Z96.653 Presence of artificial knee joint, bilateral; Z88.2 Allergy status to sulfonamides
CPT/HCPCS: 99212; G0463